=== PATIENT | female | born 1930 | race Caucasian/White ===

== ENCOUNTER 2016-11-03 14:13 | Inpatient (IN) | payer MEDICARE, BC ==
[2016-11-03] VITALS (30 sets, daily range): BP systolic 117–165; BP diastolic 43–123; BMI 24.4
[~2016-11-03] VITALS: Ht 157.5 cm; Wt 59.1 kg
[~2016-11-03 14:13] MED LIST: ACTOS45 MG PO; ADVIL200 MG PO; ASPIRIN EC81 M1 PO; CYCLOBENZAPRINE10 MG PO; GLIMEPIRIDE2 MG PO; HYZAAR 100-25 T1 TAB PO; METOPROLOL TART50 MG PO; MULTI-DAY VITAM1 TAB PO; NORVASC5 MG PO; NUCYNTA50 MG PO; PLAVIX75 MG PO; POTASSIUM99 M1 PO; PRAVACHOL40 MG PO; PROTONIX40 MG PO; XANAX0.25 MG PO; ZOFRAN4 MG PO
[2016-11-03 14:58] LABS: BASOPHILS 0.3 % (0.0-2.0); EOSINOPHILS 1.8 % (0-7); IMMATURE GRANULOCYTES 0.2 % (0-5); LYMPHOCYTES 13.6 % (15-50); MCH 24.2 pg (26.0-34.0); MCV 80.6 fL (80.0-100.0); MEAN PLATELET VOLUME 9.4 fL (7.4-10.4); MONOCYTES 6.5 % (2-11); NEUTROPHILS 77.6 % (40-80); PLATELET COUNT 217 10x3/uL (130-400); RBC 2.73 10x6/uL (4.00-5.40); RDW 15.2 % (11.5-14.5)
[2016-11-03 15:01] LABS: APTT 27.3 SECONDS (22.8-39.4); INR 1.1 (0.85-1.17); PROTIME 14.1 SECONDS (11.6-15.0)
[2016-11-03 15:05] LABS: ALBUMIN 3.3 g/dL (3.4-5.0); ANION GAP 13.8 mmol/L (8-16); BILIRUBIN - TOTAL 0.5 mg/dL (0.2-1.3); CALCIUM 8.8 mg/dL (8.5-10.1); CARBON DIOXIDE 25.8 mmol/L (21.0-32.0); CREATININE - SERUM 1.2 mg/dL (0.6-1.3); POTASSIUM - SERUM 3.6 mmol/L (3.5-5.1); PROTEIN - SERUM 7.2 g/dL (6.4-8.2)
[2016-11-03 15:06] LABS: HEMOGLOBIN 6.6 g/dL (12-16)
[2016-11-03 15:25] LABS: TROPONIN-I 0.131 ng/mL (0.000-0.060)
--- NOTE | 2016-11-03 16:39 | NUR ---
REC'D PT FROM ER. ATTACHED TO ICU EQUIPMENT UPON ARRIVAL. ALERT, ORIENTED X4. VSS. SEE ADMISSION ASSESSMENT.
--- NOTE | 2016-11-03 17:00 | NUR ---
BLOOD CONSENT SIGNED AND WITNESSED.
[2016-11-03] MEDS ORDERED: NORVASC5 MG PO (17:32)
--- NOTE | 2016-11-03 17:35 | NUR ---
FIRST ORDERED UNIT OF BLOOD CHECKED AND GIVEN PER PROTOCOL. VSS.
--- NOTE | 2016-11-03 18:41 | NUR ---
DR. AZEVEDO AT BEDSIDE SPEAKING WITH PT. DENIES ANY NEEDS AT THIS TIME. VITAL SIGNS STABLE. WILL CONTINUE TO MONITOR.
--- NOTE | 2016-11-03 19:00 | NUR ---
1900: Pt rec'd resting HOB 30 degrees with eyes open. Pupils CARMEN+ bilat. SMCx4=bilat disability specialist. Pt denies pain, tingling, numbness at this time. Pt requested something to eat. Provided sandwich tray, water, jello, and jose crackers at this time. Pt able to swallow with out difficulty. Breathing 022LNC with RR16x with SPO2 98% Lungs clear bilat with decreased bases bilaterally with auscultation. MMP and no cyanosis noted. S1S2 regular SR 60's on CM. Left arm PIV with NS 50 cc/hr. ABD soft NT BSx4 active. Carrasco to gravity with >30 cc/hr clear yellow UOP. SR up x2, call light in reach, and all montiors and alarms intact.
--- NOTE | 2016-11-03 19:07 | NUR ---
Patient Name: CINDY ROMERO Admission Status: ER Accout number: [id number] Admission Date: 11-03-2016 : 1930 Admission Diagnosis: CHF, Anemia Attending: EMETERIO Current LOS: 1 Anticipated DC Date: 11-06-2016 Planned Disposition: Home Primary Insurance: MEDICARE A & B Discharge Planning Comments: Cm met with patient and grandson to complete initial discharge planning assessment. Patient gave consent to complete assessment. Patient reports she lives at home and her grandson lives with her. She is independent in her care at home and is still able to drive. She denied use of community resources at this time. Patient plans to return home at discharge with her family assistance as needed. CM will continue to follow and assist with dc plan/needs. Turn Supervisor: Asia Segal RN, [facility] [phone] Is the patient Alert and Oriented? Yes 0 * How many steps to enter\exit or inside your home? 2 0 * PCP Dr. Layne 0 * Pharmacy [facility] 0 * Preadmission Environment Home with Family 0 * ADLs Independent 0 * Equipment Cane 0 * List name and contact numbers for known caregivers / representatives who currently or will assist patient after discharge: Madonna Qiu - daughter - [phone] 0 * Community resources currently utilized None 0 * Additional services required to return to the preadmission environment? No 0 * Can the patient safely return to the preadmission environment? Yes 0 * Has this patient been hospitalized within the prior 30 days at any hospital? No
[2016-11-03 19:23] LABS: % SATURATION 4 % (15-55); IRON 22 ug/dl (35-150); TOTAL IRON BIND CAPACITY 520 ug/dl (260-445); UNSAT IRON BIND CAPACITY 498 ug/dl (150-375)
--- NOTE | 2016-11-03 20:00 | NUR ---
1999: Pt repositioned for comfort per request at this time x2 RNs. 2nd unit of PRBC started with NS and blood tubing. No change in RESP/CV/NV status.
[2016-11-04] VITALS (17 sets, daily range): BP systolic 105–146; BP diastolic 48–90; Ht 157.5 cm; Wt 59.1 kg
--- NOTE | 2016-11-04 | NUR ---
0000: Pt resting on side with eyes closed at this time. Pt remains SR 60's on CM. Pt SPO2 decreased while asleep. Increased FIO2 to 4L to keep SPO2 >92%
--- NOTE | 2016-11-04 02:00 | NUR ---
0200: No change in pt RESP/CV/NV status. Pt remains SR 55-65 bpm on CM.
--- NOTE | 2016-11-04 06:00 | NUR ---
0600: Pt repositioned for comfort and linen changed. Pt SB while asleep, but increased SR 60's while awake. Pt with no c/o at this time. Pt remains on 024LNC RR12x with SPO2 99%. UA collected and sent to lab.
[2016-11-04 06:02] LABS: BASOPHILS 0.2 % (0.0-2.0); EOSINOPHILS 2.1 % (0-7); IMMATURE GRANULOCYTES 0.3 % (0-5); LYMPHOCYTES 27.2 % (15-50); MCH 25.5 pg (26.0-34.0); MCHC 31.7 g/dL (31.0-37.0); MCV 80.5 fL (80.0-100.0); MEAN PLATELET VOLUME 9.9 fL (7.4-10.4); MONOCYTES 12.2 % (2-11); PLATELET COUNT 175 10x3/uL (130-400); RDW 14.6 % (11.5-14.5); WBC 6.1 10x3/uL (4.8-10.8)
[2016-11-04 06:06] LABS: HEMATOCRIT 29.3 % (36.0-48.0); HEMOGLOBIN 9.3 g/dL (12-16); RBC 3.64 10x6/uL (4.00-5.40)
[2016-11-04 06:33] LABS: ANION GAP 11.3 mmol/L (8-16); CALCIUM 8.5 mg/dL (8.5-10.1); CARBON DIOXIDE 31.2 mmol/L (21.0-32.0); POTASSIUM - SERUM 3.5 mmol/L (3.5-5.1)
[2016-11-04 07:59] LABS: APPEARANCE CLEAR (CLEAR); BILIRUBIN NEGATIVE (NEGATIVE); COLOR YELLOW (YELLOW); GLUCOSE NEGATIVE (NEGATIVE); KETONE NEGATIVE (NEGATIVE); LEUKOCYTE ESTERASE 1+ (NEGATIVE); NITRITE NEGATIVE (NEGATIVE); PROTEIN 2+ mg/dL (NEGATIVE); SPECIFIC GRAVITY 1.015 (1.005-1.020); UROBILINOGEN NORMAL (NORMAL)
[2016-11-04 08:00] LABS: BACTERIA NONE SEEN /hpf (NONE SEEN); EPITHELIAL CELLS 0-5 /hpf (0-5); MUCUS <1+ /lpf (NONE SEEN); WHITE CELLS - URINE 0-5 /hpf (0-5)
--- NOTE | 2016-11-04 11:10 | HP ---
PATIENT: CINDY ROMERO MEDICAL RECORD: [id number] ACCOUNT: [id number] LOCATION:[facility] D.2307 : 29 ADMISSION DATE: 11/03/16 HISTORY AND PHYSICAL EXAMINATION DATE OF ADMISSION: 11/03/2016 REASON FOR ADMISSION: Fatigue, weakness, symptomatic anemia. HISTORY OF PRESENT ILLNESS: This is an 86-year-old white female who has been having some nosebleeds off and on for months. I sent her to Dr. Garcia and he had seen her a couple of times, recently did some cauterization of some bleeding vessels, apparently ruptured again and he did not want to cauterize again. She really has not had too much nose bleeding that she reports, but did have a lot just a few days ago. Last week on 10/28/2016, she fell in her house in her kitchen and hitting the left side of her head. She denies any loss of consciousness, but states she was a little woozy after that. She also twisted her right foot and has had a lot of pain there. She has been up and down since then, but states this morning and yesterday when she got up from bed, she would get real dizzy and she had to hold on something for worries of passing out. She stood and wanted to go the doctor or the ER, but after she realized that she could not get up, she finally agreed with her family to come in to be looked at. In the ER, her hemoglobin was 6.6, hematocrit 22, MCV was 80.6 and platelets were normal. Her BUN and creatinine were normal. Her sugar was elevated as she does have diabetes. Her troponin was elevated as is proBNP. She does have a history of diabetes, coronary artery disease. She is admitted for further evaluation and treatment. PAST MEDICAL AND SURGICAL HISTORY: She has hyperlipidemia, hypertension, well controlled diabetes coronary artery disease and aortic valve disease. PAST SURGICAL HISTORY: She has had coronary artery bypass grafting. She has had stents placed for coronary arteries. She had abdominal hernia repair and she had TAVR by Dr. Dorsey in [place] in June 2013 and has done well with that. HOME MEDICATIONS: Multivitamin once a day, ibuprofen 200 mg p.r.n. pain, aspirin 81 mg once a day, amlodipine 5 mg once a day, Amaryl 2 mg once a day, Plavix 75 mg once a day, Protonix 40 mg once a day, metoprolol 50 mg twice a day, losartan/HCTZ 100/25 once a day, Xanax 0.25 mg at bedtime, pravastatin 40 mg at bedtime, Actos 45 mg once a day, Zofran 4 mg q.6 hours p.r.n. nausea. ALLERGIES: TO CODEINE AND SULFA. HABITS: She never smoked. No alcohol or drugs. SOCIAL HISTORY: She is . She owns a [employer] business. FAMILY HISTORY: Father at 75 of alcoholism and he had some sort of GI cancer. Mother at age 24 of an acute perforated appendix. REVIEW OF SYSTEMS: GENERAL: She has occasional fatigue. No weight loss. HEENT: No particular sinus or allergy problems. CARDIOVASCULAR: She has history of coronary artery disease and has had aortic HISTORY AND PHYSICAL [id number] CINDY ROMERO L valve replaced and has no chest pain or palpitations. GASTROINTESTINAL: Denies nausea, vomiting, no bright red blood per stool or melena. SKIN: No rash. NEUROLOGIC: No seizures or migraine headaches. ENDOCRINE: She has diabetes, but A1c below 7.0. GENITOURINARY: No significant problems there. PSYCHIATRIC: She has some anxiety dealing with her grandson who has been in trouble with drugs. PHYSICAL EXAMINATION: VITAL SIGNS: She is awake and alert, pale appearing, temperature 97.7, heart rate 61, blood pressure 122/49, O2 sat 98%. She does not appear in acute distress. She is awake and alert. HEENT: I do not appreciate significant swelling on the left side of her head where she fell and hit her head last week. No significant tenderness there. NECK: Supple. No JVD or bruit. HEART: Regular rate and rhythm without murmur. LUNGS: Fairly clear. ABDOMEN: Soft, flat, nontender. EXTREMITIES: SCDs are in place. She does have 1-2+ lower extremity edema. There is some tenderness to palpation in the right foot, especially laterally. NEUROLOGIC: Grossly intact. LABORATORY DATA: CBC with a white count of 6000, hemoglobin of 6.6, hematocrit 22, MCV 80.6, platelets number 217,000. INR 1.1. Basic metabolic panel is all okay except glucose is 259. LFTs were all okay. Troponin I elevated at 0.131. ProBNP elevated at 1209. Chest x-ray is pending as is a urinalysis. ASSESSMENT: 1. Acute blood loss anemia, most likely from episodes of epistaxis. 2. Congestive heart failure. 3. Elevated troponin. 4. History of controlled diabetes. 5. Hypertension. PLAN: She is getting blood and IV fluids right now. Cardiology has been consulted for elevated troponin, which may be due to demand ischemia. We will Hemoccult stools, get anemia workup, followup chest x-ray report. We will x-ray her right foot, check a urinalysis. Other tests and procedures as warranted. TRANSINT:[id number] Voice Confirmation ID: [id number] DOCUMENT ID: [id number] GIANNA AZEVEDO MD at 1110 CC: [id number] DICTATION DATE: 11/03/161917 MEDICAL INTERPRETER: 11/04/16 [address] [facility] [address] [place] [id number]
--- NOTE | 2016-11-04 11:31 | NUR ---
VERIFIED KNOWLEDGE OF CONSULT WITH DR. JACKSON.
--- NOTE | 2016-11-04 17:47 | NUR ---
REPORT CALLED TO MED/SURG NURSE.
--- NOTE | 2016-11-04 18:20 | NUR ---
RECEIVED PT FROM ICU VIA BED. NO OTHER NEEDS AT THIS TIME. SHE IS ALERT NO SS OF DISTRESS AT THIS TIME. WILL CONTINUE PLAN OF CARE.
--- NOTE | 2016-11-04 19:29 | NUR ---
PT IS RESTING IN BED WITH EYES OPEN. ALERT TO SELF AND PLACE. CONFUSED TO TIME, BUT REORIENTED EASILY. IV INFUSING TO RFA WITHOUT DIFFICULTY. NO REDNESS OR EDEMA NOTED AT THE INSERTION SITE. O2 IS ON @ 4LPM PER NC. NO SOB NOTED. TOWNSEND CATH IS PATENT AND DRAINING TO A GRAVITY BAG. SR'S ARE UP X 3 IN BED. CALL LIGHT AND BEDSIDE TABLE ARE WITHIN EASY REACH.
--- NOTE | 2016-11-04 22:15 | NUR ---
PT IS RESTING QUIETLY IN BED WITH EYES CLOSED. RESPS ARE EVEN AND UNLABORED. NO ACUTE DISTRESS NOTED.
--- NOTE | 2016-11-05 00:09 | NUR ---
PT IS RESTING IN BED WITH EYES CLOSED.
[2016-11-05 00:37] VITALS: BP 130/46
--- NOTE | 2016-11-05 03:38 | NUR ---
PT IS RESTING IN BED WITH EYES OPEN. NO NEEDS VOICED.
[2016-11-05 04:23] VITALS: BP 153/55
[2016-11-05 07:20] LABS: BASOPHILS 0.3 % (0.0-2.0); EOSINOPHILS 3.4 % (0-7); HEMATOCRIT 29.9 % (36.0-48.0); HEMOGLOBIN 9.4 g/dL (12-16); IMMATURE GRANULOCYTES 0.3 % (0-5); LYMPHOCYTES 20.3 % (15-50); MCH 25.8 pg (26.0-34.0); MCHC 31.4 g/dL (31.0-37.0); MCV 82.1 fL (80.0-100.0); MONOCYTES 12.3 % (2-11); NEUTROPHILS 63.4 % (40-80); PLATELET COUNT 175 10x3/uL (130-400); RBC 3.64 10x6/uL (4.00-5.40); WBC 6.8 10x3/uL (4.8-10.8)
[2016-11-05 07:30] LABS: ANION GAP 8.3 mmol/L (8-16); CALCIUM 8.8 mg/dL (8.5-10.1); CARBON DIOXIDE 31.8 mmol/L (21.0-32.0); CREATININE - SERUM 0.8 mg/dL (0.6-1.3); POTASSIUM - SERUM 3.1 mmol/L (3.5-5.1)
[2016-11-05 09:00] VITALS: BP 160/50
[2016-11-05 16:00] VITALS: BP 144/52
--- NOTE | 2016-11-05 19:56 | NUR ---
RECEIVED IN BEDROOM. LAYING IN BED WITH EYES CLOSED. RESPONDS TO VOICE. IV INFUSING. DENIES PAIN AT THIS TIME. CALL LIGHT IN REACH
[2016-11-05 20:00] VITALS: BP 132/79
--- NOTE | 2016-11-06 01:43 | NUR ---
RESTING IN BED WITH EYES CLOSED. NO SIGNS OF DISTRESS. CALL LIGHT IN REACH
[2016-11-06 04:00] VITALS: BP 134/50
[2016-11-06 06:19] LABS: BASOPHILS 0.2 % (0.0-2.0); EOSINOPHILS 2.8 % (0-7); HEMATOCRIT 29.2 % (36.0-48.0); HEMOGLOBIN 9.2 g/dL (12-16); IMMATURE GRANULOCYTES 0.2 % (0-5); LYMPHOCYTES 20.2 % (15-50); MCH 26.1 pg (26.0-34.0); MCHC 31.5 g/dL (31.0-37.0); MEAN PLATELET VOLUME 9.8 fL (7.4-10.4); NEUTROPHILS 59.6 % (40-80); PLATELET COUNT 168 10x3/uL (130-400); RBC 3.52 10x6/uL (4.00-5.40); RDW 15.3 % (11.5-14.5); WBC 6.4 10x3/uL (4.8-10.8)
[2016-11-06 06:35] LABS: CALCIUM 8.6 mg/dL (8.5-10.1); CARBON DIOXIDE 31.4 mmol/L (21.0-32.0); CREATININE - SERUM 0.8 mg/dL (0.6-1.3); POTASSIUM - SERUM 3.4 mmol/L (3.5-5.1)
[2016-11-06 08:00] VITALS: BP 136/72
[2016-11-06 11:12] LABS: FOLATE (FOLIC ACID) - SERUM 10.2 ng/mL (>3.0)
[2016-11-06 12:00] VITALS: BP 126/42
[2016-11-06 16:00] VITALS: BP 151/63
--- NOTE | 2016-11-06 19:45 | NUR ---
PT RECEIVED IN BED WITH EYES OPEN WATCHING TV. NO COMPLAINTS OF PAIN. NO OTHER CONCERNS NOTED. IV TO RIGHT FOREARM PATENT AND RUNNING NS 0.9 AT 50ML/HR. NO REDNESS OR SWELLING NOTED AT THIS TIME. DRESSING INTACT. NO SIGN/SYMPTOMS OF DISTRESS NOTED. CALL LIGHT IN REACH.
[2016-11-06 21:40] VITALS: BP 149/80
--- NOTE | 2016-11-06 22:37 | NUR ---
PT IN BED WITH EYES OPEN WATCHING TV. RECEIVED SCHEDULED MEDICATIONS PER MAR WITHOUT DIFFICULTY. REQUEST PRN XANAX FOR SLEEP AND RECEIVED PER MAR. NO OTHER NEEDS AT THIS TIME. CALL LIGHT IN REACH.
[2016-11-07 02:00] VITALS: BP 139/46
[2016-11-07 06:02] LABS: BASOPHILS 0.2 % (0.0-2.0); HEMATOCRIT 29.9 % (36.0-48.0); HEMOGLOBIN 9.3 g/dL (12-16); IMMATURE GRANULOCYTES 0.2 % (0-5); MCH 26.1 pg (26.0-34.0); MCHC 31.1 g/dL (31.0-37.0); MCV 83.8 fL (80.0-100.0); MEAN PLATELET VOLUME 9.8 fL (7.4-10.4); MONOCYTES 15.5 % (2-11); NEUTROPHILS 62.1 % (40-80); PLATELET COUNT 166 10x3/uL (130-400); RBC 3.57 10x6/uL (4.00-5.40); RDW 15.4 % (11.5-14.5); WBC 5.6 10x3/uL (4.8-10.8)
[2016-11-07 06:09] LABS: ANION GAP 9.3 mmol/L (8-16); CALCIUM 8.6 mg/dL (8.5-10.1); CREATININE - SERUM 0.9 mg/dL (0.6-1.3); POTASSIUM - SERUM 3.3 mmol/L (3.5-5.1)
[2016-11-07 08:19] VITALS: BP 141/54
--- NOTE | 2016-11-07 08:31 | NUR ---
AM ROUNDING- PT LAYING IN BED ON BACK WITH EYES OPEN RESTING. ON MONITOR SHOWING SR, HR 60. ON EP, WILL CHECK AM LABS AND TX PER PROTOCOL. ON 02 AT 4L VIA NC. IV SEEN TO LEFT AC THAT IS CURRENTLY SALINE LOCKED. SECOND IV SEEN TO RIGHT FOREARM WITH NS RUNNING AT 50CC/HR. PER REPORT FROM LEATHER PRODUCTION WORKER NURSE SABINA, PT IS A RESERVE RIGHT ARM FOR A PAST MASECTOMY AND PT HAD IV IN RIGHT FOREARM BEFORE SHE GOT TO MED 2 FROM ER AND THAT IT WAS FINE TO GO AHEAD AND KEEP PER JOSELIN LINDSEY AND IF IT CAME OUT TO NOT RESITE IN RIGHT ARM. TOWNSEND CATHETER SEEN WITH YELLOW URINE. SCDS ARE CURRENTLY OFF. PER REPORT PT IS UP WITH ASSIST. WILL CONTINUE TO MONITOR AND CONTINUE WITH PLAN OF CARE.
[2016-11-07 12:05] VITALS: BP 130/50
--- NOTE | 2016-11-07 14:14 | NUR ---
Nutrition follow-up: Diet: Low sodium PO intake ~50% of meals labs reviewed Wt: 147# +BM PO intake fair at this time. RDN will order Ensure with meals RDN following.
--- NOTE | 2016-11-07 14:22 | NUR ---
JOSELIN RAMOS REMOVED PTS TOWNSEND CATHETER ORDERED AND PULLED 10CC OUT OF BALLOON SYRINGE. TOLERATED WELL. WILL CONTINUE TO MONITOR.
--- NOTE | 2016-11-07 15:00 | CN ---
PATIENT NAME:CINDY ROMERO MEDICAL RECORD: [id number] : 28 LOCATION:[facility] D.2138 ADMIT DATE: 11/03/16 ACCOUNT: [id number] CONSULTING PHYSICIAN: YVETTE DAVIDSON MD REFERRING PHYSICIAN: GIANNA AZEVEDO MD DATE OF CONSULTATION: 11/05/2016 HISTORY OF PRESENT ILLNESS: An 86-year-old lady with cardiovascular history. She has a history of TAVR in [place], done well since that time. She has a history of bypass grafting, has hypertension, has been having intermittent nosebleed, had a syncopal episode, was found to have a hemoglobin of 6.6, also was noted to have elevated troponin and BNP, feels much better post-transfusion, some sore from syncopal episode and fall. She reports some dyspnea, although this is markedly improved post-transfusion. We are asked to see her concerning her cardiovascular status. PAST MEDICAL HISTORY: 1. History of hypertension. 2. Aortic valve disease status post TAVR. 3. Diabetes mellitus. 4. Osteoarthritis. 5. Dyslipidemia. ALLERGIES: CODEINE AND SULFA. SOCIAL HISTORY: Lives here in [place]. She is a nonsmoker, , is able to take care of her ADLs. MEDICATIONS: Typically include Norvasc 5 mg p.o. q. day, Amaryl 2 mg p.o. q. day, Plavix 75 q. day, aspirin 81 q. day, Protonix 40 q. day, metoprolol 50 b.i.d., losartan 100/25 daily, Xanax p.r.n., and pravastatin 40 q.h.s. REVIEW OF SYSTEMS: The patient reports easy bruising but reports no swollen glands. The patient reports no fever, no night sweats, no significant weight gain, no significant weight loss. No significant exercise tolerance. The patient reports no dry eyes, no irritation, no vision change. Patient reports no difficulty hearing and no ear pain. Patient reports no frequent nose bleeds or nose and sinus problems. Patient reports on arm pain on exertion. No shortness of breath while lying down. No history of heart murmur. Patient reports no cough, no wheezing or coughing up blood. Patient reports no abdominal pain, no vomiting. Normal appetite. No diarrhea and not vomiting blood. No nausea and no constipation. Patient reports no incontinence. No difficulty urinating. No hematuria. No increased frequency. Patient reports no muscle aches. No weakness, no arthralgias, no back pain. No swelling of the extremities. Patient reports no abnormal mole, no jaundice, no rashes. Reports no loss of consciousness. No weakness and no numbness. No seizures, dizziness, or headaches. The patient reports no depression, no sleep disturbance, feeling safe in a relationship and no alcohol abuse. Patient reports on fatigue. Reports no runny nose or sinus pressure. No itching, no hives, and no frequent sneezing. PHYSICAL EXAMINATION: GENERAL: Pleasant female, in no acute distress, appears stated age. VITAL SIGNS: Blood pressure 160/50. Pulse 65 and regular. HEENT: Normocephalic and atraumatic. CONSULT REPORT [id number] CINDY ROMERO NECK: No JVD or bruit. HEART: Regular, II/ systolic ejection murmur. LUNGS: Good air excursion. ABDOMEN: Soft and nontender. EXTREMITIES: Pulse 2+ with no edema. NEUROLOGIC: Grossly intact. IMPRESSION: Suspect elevated troponin and BNP, more of high output issue with hemoglobin of 6.6. Symptoms improved, markedly posttransfusion. Agree with current management. TRANSINT:[id number] Voice Confirmation ID: [id number] DOCUMENT ID: [id number] YVETTE DAVIDSON MD at 1500 CC: [id number] DICTATION DATE: 11/05/16 1117 TABLE TENDER: 11/05/16 1218 ADM IN [place] [id number] [place] [address]
[2016-11-07 16:04] VITALS: BP 128/50
--- NOTE | 2016-11-07 18:35 | NUR ---
PT LAYING IN BED ON RIGHT SIDE WITH EYES OPEN RESTING. PT STATED HER STOMACH DOES NOT FEEL WELL CURRENTLY THAT IS WHY SHE HAS NOT EATEN DINNER. NO NEED AT CURRENT TIME. WILL CONTINUE TO MONITOR.
[2016-11-07 20:00] VITALS: BP 142/53
[2016-11-08] VITALS: BP 148/57
[2016-11-08 04:00] VITALS: BP 122/50
--- NOTE | 2016-11-08 04:55 | NUR ---
NURSE ROUNDS 21:00 - PT AWAKE, ALERT, ORIENTED, DENIED ANY ACUTE NEEDS. CONTINUE TO MONITOR CLOSELY. I DID ASSIST PT TO BATHROOM. CONTINUE TO MONITOR CLOSELY. BED LOW, CALL LIGHT IN REACH, SIDE RAILS X 2, HOB 30 DEGREES.
[2016-11-08 05:35] LABS: BASOPHILS 0.2 % (0.0-2.0); EOSINOPHILS 1.9 % (0-7); HEMATOCRIT 30.3 % (36.0-48.0); HEMOGLOBIN 9.3 g/dL (12-16); IMMATURE GRANULOCYTES 0.2 % (0-5); LYMPHOCYTES 21.2 % (15-50); MCH 25.7 pg (26.0-34.0); MCHC 30.7 g/dL (31.0-37.0); MCV 83.7 fL (80.0-100.0); MEAN PLATELET VOLUME 10.4 fL (7.4-10.4); MONOCYTES 17.1 % (2-11); NEUTROPHILS 59.4 % (40-80); PLATELET COUNT 170 10x3/uL (130-400); RBC 3.62 10x6/uL (4.00-5.40); RDW 15.9 % (11.5-14.5); WBC 5.9 10x3/uL (4.8-10.8)
[2016-11-08 05:53] LABS: ANION GAP 10.8 mmol/L (8-16); CALCIUM 8.5 mg/dL (8.5-10.1); CARBON DIOXIDE 30.9 mmol/L (21.0-32.0); CREATININE - SERUM 0.9 mg/dL (0.6-1.3); POTASSIUM - SERUM 3.7 mmol/L (3.5-5.1)
[2016-11-08 08:00] VITALS: BP 130/53
--- NOTE | 2016-11-08 08:27 | NUR ---
AM ROUNDING- PT LAYING IN BED ON BACK WITH EYES CLOSED RESTING. ON MONITOR SHOWING SB, HR 47. ON EP, WILL CHECK AM LABS AND TX PER PROTOCOL. RESERVE RIGHT ARM FROM HX OF MASECTOMY. IV SEEN TO RIGHT FOREARM THAT IS CURRENTLY SALINE LOCKED. IV SEEN TO LEFT AC WITH NS RUNNING AT 50CC/HR. ON 02 AT 4L VIA NC. SCDS ARE ON. NO NEED AT CURRENT TIME. WILL CONTINUE TO MONITOR.
[2016-11-08] MEDS ORDERED: FERROUS SULFAT325 MG PO (08:31)
--- NOTE | 2016-11-08 09:32 | NUR ---
Patient Name: CINDY ROMERO Encounter No: [id number] : 1930 Primary Insurance: MEDICARE A & B Anticipated DC Date: 11-08-2016 Planned Disposition: Home DCP follow-up note: CM MET WITH PT IN ROOM TO DISCUSS DISCHARGE NEEDS AND PLANNING. CM DISCUSSED AVAILABILITY OF HOME HEALTH, REHAB SERVICES AND MEDICAL EQUIPMENT. PT DENIES DISCHARGE NEEDS. DAUGHTER TO TRANSPORT HOME AT DISCHARGE. IMPORTANT MESSAGE FROM MEDICARE PROVIDED AND EXPLAINED. CM TO FOLLOW AND ASSIST NEEDED. Jonathan Wilkinson, CASE MANAGEMENT
[2016-11-08 12:00] VITALS: BP 138/44
--- NOTE | 2016-11-08 16:14 | NUR ---
D/C INSTRUCTIONS EXPLAINED TO PT AND SIGNED BY PT, PLACED IN CHART. BOTH IVS (ONE TO RIGHT FOREARM AND ONE TO LEFT AC) REMOVED WITH CATH TIP INTACT, TOLERATED WELL. HEART MONITOR RETURNED TO [place] IN TELEMETRY. PT WAS WEARING 02, CHECK PTS O2 SAT WITH 02 WHICH WAS 98%. TOOK O2 OFF AND CHECK PT 15 MINUTES LATER, PTS 02 SAT IS 96%. DAUGHTER STATED THEY WOULD CHECK WITH PCP IF HAVING ANY SOB OR DIFFICULTY BREATHING. PT STATED SHE NORMALLY DOES NOT WEAR O2 AT HOME. WILL AWAIT PT TO GET BELONGINGS AND SEND WHEELCHAIR. 1615- PT D/C HOME WITH DAUGHTER VIA WHEELCHAIR.
== END 2016-11-08 16:29 | disposition home or self-care (01) | DRG 812 ==
LOC: D.ER 14:13 → D.M2 15:52 → D.ICU 15:52 → D.M2 11-04 17:57
PROVIDERS: Emergency Medicine; ADMIT Family Medicine
PROC: 0T9B70Z Drainage of Bladder with Drainage Device, Via Natural or Artificial Opening (ICD-10-PCS; principal; 2016-11-03)
DX: D50.9 Iron deficiency anemia, unspecified (principal); D62 Acute posthemorrhagic anemia; R79.89 Other specified abnormal findings of blood chemistry; I11.0 Hypertensive heart disease with heart failure; I50.9 Heart failure, unspecified; E11.9 Type 2 diabetes mellitus without complications; I25.10 Atherosclerotic heart disease of native coronary artery without angina pectoris; E78.5 Hyperlipidemia, unspecified; S99.921A Unspecified injury of right foot, initial encounter; X58.XXXA Exposure to other specified factors, initial encounter; Z95.1 Presence of aortocoronary bypass graft; Z95.5 Presence of coronary angioplasty implant and graft

== ENCOUNTER → 2018-07-04 10:31 | Outpatient (CLI) | payer MEDICARE, BC ==
[2016-11-04 09:44] VITALS: BMI 25.6
[~2018-07-04 10:31] MED LIST changes: +FERROUS SULFAT325 MG PO
== END | disposition home or self-care (01) ==
LOC: D.US 10:30
DX: I63.9 Cerebral infarction, unspecified (principal); R47.01 Aphasia

== ENCOUNTER 2018-08-18 15:10 | Inpatient (IN) | payer MEDICARE, BC ==
[~2018-08-18] VITALS: Ht 157.5 cm; Wt 59.5 kg
--- NOTE | ~2018-08-18 | HEMODYNAMI ---
PATIENT:CINDY ROMERO MEDICAL RECORD: [id number] : 28 [facility] [id number] ADMISSION DATE: 08/18/18 Generatedon:08/22/201813:35 Patient name: CINDY ROMERO Patient #: [id number] SSN: : 1930 Date of study: 08/22/2018 Page: Of Hemodynamic Procedure Report Patient Data Patient Demographics Procedure consent was obtained First Name: CINDY Gender: Female Last Name: NICK : 1930 [facility] Initial: L Age: 88 year(s) Patient #: [id number] Race: Additional ID: [id number] Contact details [address]: [address] [place] [address] State: [place] City: [place] Zip code: [address] Past Medical History Allergies Allergen Reaction Date Comments Reported Other allergy 08/22/2018 SULFA ANTIBIOTICS, CODEINE, GATIFLOXIN Admission Admission Data Admission Date: 08/18/2018 Admission Time: 18:10 Room #: .2125 Height (in.): 61.81 BSA: 1.51 (m2) Height (cm.): 157 BMI: 21.34 (kg/m2) Weight (lbs.): 115.94 Weight (kg.): 52.59 Lab Results Lab Result Date: 08/19/2018 Lab Result Time: 0:00 Biochemistry Name Units Result Min Max BUN mg/dl 25 --(----)-* 7 18 Creatinine mg/dl 1.1 --(--*-)-- 0.6 1.3 Glucose mg/dl 85 --(-*--)-- 74 106 CBC Name Units Result Min Max Hemoglobin g/dl 9.7 *-(----)-- 13.5 17.5 Procedure Procedure Types Cath Procedure Diagnostic Procedure FFR/IVUS Intra-Coronary IVUS Initial PCI Procedure Coronary Stent Coronary Stent Initial Procedure Description Procedure Date Procedure Date: 08/22/2018 Procedure Start Time: 13:20 Procedure End Time: 13:28 Procedure Staff Name Function Drew Rodríguez MD Performing Physician Marta White RT Scrub [facility] RT Monitor Janice Story RN Nurse Procedure Data Cath Procedure Fluoroscopy Diagnostic fluoroscopy Total fluoroscopy Time: 1.8 time: 1.8 min min Diagnostic fluoroscopy Total fluoroscopy dose: 90 dose: 90 mGy mGy Contrast Material Contrast Material Type Amount (ml) Isovue 300 20 Entry Location Entry Primary Successful Side Size Upsize Upsize Entry Closure Succes sful Closure Location (Fr) 1 (Fr) 2 (Fr) Remarks Device Remarks Femoral Left 6 Fr Exoseal artery Short Estimated blood loss: 10 ml Procedure Complications No complications Procedure Medications Medication Administration Route Dosage 0.9% NaCl I.V. 100 ml/hr Oxygen etCO2 Nasal cannula 2 l/min Lidocaine 2% added to field 20 Heparin Flush Bag added to field 2 bags (1000units/500ml NS) Versed I.V. 2 mg Fentanyl I.V. 50 mcg Heparin Bolus I.V. 4000 units Hemodynamics Rest BSA: 1.51 (m2) HGB: 9.7 (g/dl) O2 Consumption: Estimated: 142.19 (ml/min) O2 Con sumption indexed: Estimated:94.17 (ml/min/m) Heart Rate: 86 (bpm) Snapshots Pre Cath Intra NCS Post Cath Vital Signs Time Heart Resp SPO2 etCO2 NIBP (mmHg) Rhythm Pain Sedation Rate (ipm) (%) (mmHg) Status Level (bpm) 13:04:14 86 29 99 29 138/78(109) NSR 0 (11) 10(A) , No pain 13:08:28 84 32 99 26.9 140/76(115) NSR 0 (11) 10(A) , No pain 13:12:40 67 19 100 26.4 100/55(77) NSR 0 (11) 10(A) , No pain 13:16:46 81 15 100 26 120/63(107) NSR 0 (11) 10(A) , No pain 13:20:58 78 23 100 30.8 116/65(99) NSR 0 (11) 9(A) , No pain 13:25:10 78 29 100 32 116/60(87) NSR 0 (11) 10(A) , No pain Medications Time Medication Route Dose Verified Delivered Reason Notes Effectiveness by by 13:06:08 0.9% NaCl I.V. 100 Drew Janice used for ml/hr Anne Story ship keeper 13:06:15 Oxygen etCO2 2 Drew Janice used for Nasal l/min Anne Story procedure cannula RN 13:06:20 Lidocaine 2% added 20ml Drew Drew for local to vial Anne Rodríguez MD anesthetic field 13:06:24 Heparin Flush added 2 Drew Drew used for Bag to bags Anne Rodríguez MD procedure (1000units/500ml field NS) 13:19:06 Versed I.V. 2 mg Drew Janice for sedation Anne Story RN 13:19:13 Fentanyl I.V. 50 Drew Janice for sedation mcg Anne Story RN 13:22:31 Heparin Bolus I.V. 4000 Drew Janice for verif ied units Anne Story anticoagulation with Dr. JOSELIN Rodríguez Procedure Log Time Note 12:36:32 Signed procedure consent form obtained from patient. 12:36:33 Time tracking: Regular hours (M-F 7:00 - 5:00) 12:36:37 Plan of Care:Hemodynamics will remain stable., Cardiac rhythm will remain stable., Comfort level will be maintained., Respiratory function will remain adequate., Patient/ family verbilizes understanding of procedure., Procedure tolerated without complication., Recovers from procedure without complications.. 12:36:39 Diagnostic Cath status Elective 12:39:57 Janice Story RN sent for patient. Start room use. 12:54:23 Patient received from Med II to CCL 1 Alert and oriented. Tansferred to table in Supine position. 12:54:25 Correct patient and procedure confirmed by team. 12:54:25 Warm blankets applied, and estephanie hugger turned on for patient comfort. 12:54:26 ECG and BP/O2 sat monitors applied to patient. 12:54:42 Patient Weight : 115.94 lbs 12:54:54 Patient Height : 61.81 inches 13:03:07 Vital chart was started 13:04:51 Baseline sample Acquired. 13:04:54 Rhythm: sinus rhythm 13:04:55 Full Disclosure recording started 13:04:57 Pre-procedure instructions explained to patient. 13:04:58 Pre-op teaching completed and patient verbalized understanding. 13:04:59 Family in patients room. 13:05:01 Patient NPO since Midnight. 13:05:27 Patient allergic to Other allergySULFA ANTIBIOTICS, CODEINE, GATIFLOXIN 13:05:38 Is patient on blood thinner?Yes 13:05:41 ACC The patient was administered the following blood thiners within the last 24 hours: ACCPlavix 13:05:42 Patient diabetic? Yes. 13:05:45 Previous problem with sedation/anesthesia? No ? 13:05:46 Snore? Yes 13:05:47 Sleep apnea? No 13:05:48 Deviated septum? No 13:05:49 Opens mouth fully? Yes 13:05:52 Sticks out tongue? Yes 13:05:53 Airway obstruction? No ? 13:05:58 Dentures? Yes IN TIGHT 13:06:02 Pre procedure: left dorsailis pedis pulse 1+ Palpable, but thready & weak; easily obliterated 13:06:08 Patient pain scale 0/10 ?. 13:06:08 0.9% NaCl 100 ml/hr I.V. was administered by Janice Story RN; used for procedure; 13:06:12 IV patent on arrival in right hand with 0.9% NaCl at [facility] 13:06:14 Lab results completed and on chart. 13:06:15 Oxygen 2 l/min etCO2 Nasal cannula was administered by Janice Story RN; used for procedure; 13:06:17 Left groin area was prepped with chlora-prep and draped in sterile fashion 13:06:18 Alarms reviewed by R. N. 13:06:19 Sharps counted by scrub and verified by R.N. 13:06:20 Lidocaine 2% 20ml vial added to field was administered by Drew Rodríguez MD; for local anesthetic; 13:06:24 Heparin Flush Bag (1000units/500ml NS) 2 bags added to field was administered by Drew Rodríguez MD; used for procedure; 13:07:13 Use device set CATH PACK 13:07:14 ACIST Syringe (12944) opened to sterile field. 13:07:15 Medline Cath Pack ([id number]) opened to sterile field. 13:07:15 ACIST Manifold (98015) opened to sterile field. 13:07:15 ACIST Hand Control (00000) opened to sterile field. 13:07:16 DIAGNOSTIC WIRE .035 260cm J wire (747134) opened to sterile field. 13:07:16 Bag Decanter () opened to sterile field. 13:07:32 CHOICE PT Extra Support 182cm wire ([id number]) opened to sterile field. 13:07:32 INFLATOR Merit BasixCompak (TP8538) opened to sterile field. 13:07:32 SHEATH 6FR [place] (KQU045) opened to sterile field. 13:18:18 Final Timeout: patient, procedure, and site verified with staff and physician. All members of the team are in agreement. 13:18:18 --------ALL STOP TIME OUT------ 13:18:20 Left groin site verified by team. 13:18:23 Physical assessment completed. ASA score P 3 - A patient with severe systemic disease as per Drew Rodríguez MD. 13:18:25 Sedation plan: IV Moderate Sedation Medication:Versed, Fentanyl 13:19:06 Versed 2 mg I.V. was administered by Janice Story RN; for sedation; 13:19:13 Fentanyl 50 mcg I.V. was administered by Janice Story RN; for sedation; 13:20:13 Procedure started. 13:20:35 Local anesthetic to left femerol artery with Lidocaine 2% by Drew Rodríguez MD.INITIAL ACCESS ONLY 13:20:54 Rossiter Mentasta Eagleye IVUS Catheter (20382H) opened to sterile field. 13:20:55 GUIDE 6FR HS I SH catheter ([id number]) opened to sterile field. 13:21:05 A 6 Fr Short sheath was inserted into the Left Femoral artery 13:21:34 6 Fr HS1 SH guide catheter was inserted over the wire 13:22:14 CHOICE ES 182 wire advanced. 13:22:15 Wire advanced across lesion. 13:22:31 Heparin Bolus 4000 units I.V. was administered by Janice Story RN; for anticoagulation; verified with Dr. Rodríguez 13:23:30 IVUS catheter advanced over wire. 13:23:33 IVUS pass to RCA lesion performed. 13:23:34 IVUS catheter removed over wire. 13:24:38 Place stent Inflation Number: 1 A NADEGE RX 3.0 x 22 stent ([id number]) was prepped and advanced across the Mid RCA. The stent was deployed at 15 NERI for 0:10 (min:sec). 13::53 Stent catheter was removed intact over wire. 13::54 Wire removed. 13::55 Guide catheter removed. 13:25:01 EXOSEAL 6Fr (EX600) opened to sterile field. 13:25:23 Sheath removed intact; hemostasis achieved with Exoseal to the Left Femoral artery. 13:25:26 Procedure ended.(Physican Out) 13::55 Fluoroscopy time 01.80 minutes. 13:27:00 Fluoroscopy dose: 90 mGy 13:27:00 Flurop Dose total: 90 13:27:04 Contrast amount:Isovue 300 20ml. 13:27:05 Sharps counted by scrub and verified by R.N. 13:27:09 Post-op/insertion site Left Femoral artery dressed using a 4 x 4 and Tegaderm. 13:27:17 Post-procedure physical assessment completed. ASA score P 3 - A patient with severe systemic disease as per Drew Rodríguez MD. 13:27:31 Post procedure rhythm: sinus rhythm 13:27:34 Estimated blood loss: 10 ml 13:27:35 Post procedure instruction explained to patient.Patient verbalizes understanding. 13:27:36 Patient needs reinforcement of post procedure teaching. 13:28:08 Procedure type changed to Cath procedure, Diagnostic procedure, FFR/IVUS, Intra-Coronary IVUS Initial, PCI procedure, Coronary Stent, Coronary Stent Initial 13:28:29 Procedure and supply charges have been captured, reviewed, submitted and are correct. 13:28:31 Procedure Complication : No complications 13:28:33 Vital chart was stopped 13:28:36 Report given to PCU. 13:28:38 Patient transfered to PCU with Bed. 13:28:39 Full Disclosure recording stopped 13:28:39 Procedure ended. 13:28:44 End room use (Document Last) 13:33:19 Femstop placed over the left femerol artery at 130 mmHg. Hemostasis achieved. Intervention Summary Intervention Notes Time ActionType Lesion and Equipment Used Action# Pressure Duration Attributes 13:24:38 Place stent Mid RCA NADEGE RX 3.0 x 1 15 00:10 22 stent ([id number]) Device Usage Item Name Manufacture Quantity Catalog Number Hospital Part Current M inimal Lot# / Charge Number Stock Stock Serial# Code ACIST Syringe Acist 1 56405 748078 028933 078426 2 0 (86028) Medical Systems Inc ACIST Hand Acist 1 45205 810379 655839 742315 5 Control Medical (35665) Systems Inc ACIST Manifold Acist 1 54732 228709 491864 519716 5 (67819) Medical Systems Inc Medline Cath Medline 1 [id number] 527454 88206 399210 5 Pack ([id number]) Bag Decanter Microtek 1 2001S 191963 64030 673028 5 () Medical Inc. DIAGNOSTIC St Ronni 1 697115 440457 726076 433133 3 0 WIRE .035 260cm J wire (276583) SHEATH 6FR Terumo 1 [id number] 276610 089773 257130 4 0 [place] (CWG680) INFLATOR Merit Merit 1 [id number] 907147 795636 543928 1 5 Spark CRM ([id number]) CHOICE PT [place] 1 [id number] 365920 781931 913697 5 Extra Support Scientific 182cm wire ([id number]) Rossiter Rossiter 1 [id number] 216858 109698 174307 8 Mentasta Eagleye IVUS Catheter (77149D) GUIDE 6FR HS I Medtronic 1 [id number] 933365 99403 877995 1 SH catheter ([id number]) NADEGE RX 3.0 x Medtronic 1 [id number] 865551 0794265 359646 5 [id number] 22 stent ([id number]) EXOSEAL 6Fr Cardinal 1 EX600 792724 743110 281031 1 0 (EX600) Health Signature Audit [place] Stage Time Signature Unsigned Intra-Procedure 08/22/2018 Brianne Castillo Counts 1:29:36 PM RT(R) RT(R) 08/22/2018 1:32:42 PM Intra-Procedure 08/22/2018 Brianne Grant 1:35:39 PM RT(R) Signatures Monitor : Brianne Grant Signature : RT Date : Time : [place] [id number] [place] [address]
--- NOTE | ~2018-08-18 | OP ---
PATIENT NAME: CINDY ROMERO MEDICAL RECORD: [id number] :28 LOCATION:D. D.2125 ADMISSION DATE:08/18/18 SURGEON: OBDULIA GARCIA MD DATE OF OPERATION: 08/22/2018 PROCEDURES: 1. PTCA and stent, RCA. 2. Selective coronary angiography. 3. Intravascular ultrasound. INDICATION: Angina and coronary artery disease. PROCEDURE IN DETAIL: After informed consent was obtained with detailed explanation of risks and benefits as well as alternative therapies, the patient elected to proceed with angiogram and angioplasty. The left femoral area was prepped and draped in normal sterile fashion. Left femoral artery was cannulated via modified Seldinger technique with placement of 6-Salvadorean sheath. All catheters were exchanged through this sheath. FINDINGS: The right coronary has greater than 80% stenosis in the mid vessel, confirmed by intravascular ultrasound. This was addressed with 3.0 x 22-mm [place] stent. Result was 0% residual stenosis. OVERALL IMPRESSION: Successful PTCA and stent of the right coronary, going from greater than 80% initial stenosis to 0% residual. TRANSINT:[id number] Voice Confirmation ID: [id number] DOCUMENT ID: [id number] OBDULIA GARCIA MD CC: [id number] DICTATION DATE: 08/22/18 1332 EDUCATIONAL TECHNOLOGY COORDINATOR: 08/22/18 1621 ADM IN [facility] [address] [id number]
--- NOTE | ~2018-08-18 | HEMODYNAMI ---
PATIENT:CINDY ROMERO MEDICAL RECORD: [id number] : 28 LOCATION:[address] ADMISSION DATE: 08/18/18 Generatedon:08/19/201816:10 Patient name: CINDY ROMERO Patient #: [id number] SSN: : 1930 Date of study: 08/19/2018 Page: Of Hemodynamic Procedure Report Patient Data Patient Demographics Procedure consent was obtained First Name: CINDY Gender: Female Last Name: NICK : 1930 [facility] Initial: L Age: 88 year(s) Patient #: [id number] Race: Additional ID: [id number] Contact details Address: [address] [address] State: [place] City: [place] Zip code: [address] Admission Admission Data Admission Date: 08/18/2018 Admission Time: 18:10 Room #: 1206 Lab Results Lab Result Date: 08/19/2018 Lab Result Time: 0:00 Biochemistry Name Units Result Min Max BUN mg/dl 25 --(----)-* 7 18 Creatinine mg/dl 1.1 --(--*-)-- 0.6 1.3 Glucose mg/dl 85 --(-*--)-- 74 106 CBC Name Units Result Min Max Hemoglobin g/dl 9.7 *-(----)-- 13.5 17.5 Procedure Procedure Types Cath Procedure Diagnostic Procedure C Coronaries w/Grafts PCI Procedure Coronary Stent Coronary Stent Initial AMI/SVG/STRAP MACHINE OPERATOR AUTOMATIC PTCA or Stent SVG-BMS/EDWARD Initial Procedure Description Procedure Date Procedure Date: 08/19/2018 Procedure Start Time: 15:33 Procedure End Time: 16:10 Procedure Staff Name Function Drew Rodríguez MD Performing Physician Theron Henderson RN Nurse Dottie Brandon RT Scrub Randy Walls RT Monitor Procedure Data Cath Procedure Fluoroscopy Diagnostic fluoroscopy Total fluoroscopy Time: 8.3 time: 8.3 min min Diagnostic fluoroscopy Total fluoroscopy dose: dose: 303.28 mGy 303.28 mGy Contrast Material Contrast Material Type Amount (ml) Isovue 300 185 Entry Location Entry Primary Successful Side Size Upsize Upsize Entry Closure Layton ccessful Closure Location (Fr) 1 (Fr) 2 (Fr) Remarks Device Remarks Femoral Right 5 Fr Manual vein Compression Femoral Right 5 Fr 6 Fr Exoseal artery Short Estimated blood loss: 10 ml Diagnostic catheters Device Type Used For End Catheter Placement MULTIPACK Pigtail 5 Fr Procedure catheter MULTIPACK JL 4.0 5Fr Procedure catheter MULTIPACK 3DRC 5Fr Procedure catheter DIAGNOSTIC AR MOD 5Fr Procedure Catheter (099080E) Procedure Medications Medication Administration Route Dosage Versed I.V. 1 mg Versed I.V. 1 mg Versed I.V. 1 mg Fentanyl I.V. 50 mcg Oxygen etCO2 Nasal cannula 2 l/min Lidocaine 2% added to field 20 Heparin Flush Bag added to field 2 bags (1000units/500ml NS) Heparin Bolus I.V. 4000 units Versed I.V. 1 mg Fentanyl I.V. 50 mcg Lopressor I.V. 5 mg Hemodynamics Rest HGB: 9.7 (g/dl) Heart Rate: 96 (bpm) Snapshots Pre Cath Intra NCS Post Cath Vital Signs Time Heart Resp SPO2 etCO2 NIBP (mmHg) Rhythm Pain Sedation Rate (ipm) (%) (mmHg) Status Level (bpm) 14:28:49 100 17 96 32 Measuring NSR 0 (11) 10(A) , No pain 14:30:11 100 15 97 33.5 233/92(134) NSR 0 (11) 10(A) , No pain 14:35:10 138 19 97 13.4 Measuring NSR 0 (11) 10(A) , No pain 14:41:21 136 43 94 11.9 204/182(189) NSR 0 (11) 10(A) , No pain 14:45:41 106 25 92 9.6 161/77(115) NSR 0 (11) 9(A) , No pain 14:50:01 96 25 92 33.5 140/71(99) NSR 0 (11) 9(A) , No pain 14:54:17 88 21 93 20.1 135/59(95) NSR 0 (11) 9(A) , No pain 14:58:31 87 24 93 13.4 134/60(100) NSR 0 (11) 9(A) , No pain 15:02:50 81 23 93 18.6 124/57(85) NSR 0 (11) 9(A) , No pain 15:07:05 77 21 93 5.2 125/57(88) NSR 0 (11) 9(A) , No pain 15:11:21 76 20 93 19.3 127/55(85) NSR 0 (11) 9(A) , No pain 15:15:39 77 21 93 29 119/52(86) NSR 0 (11) 9(A) , No pain 15:19:49 88 13 94 32.7 127/69(94) NSR 0 (11) 9(A) , No pain 15:24:05 81 24 98 1.4 131/59(94) NSR 0 (11) 9(A) , No pain 15:28:19 84 17 97 24.5 140/66(109) NSR 0 (11) 9(A) , No pain 15:32:36 81 23 94 29 142/69(107) NSR 0 (11) 9(A) , No pain 15:36:54 80 15 94 14.9 133/65(103) NSR 0 (11) 9(A) , No pain 15:41:05 85 19 95 35.8 144/73(109) NSR 0 (11) 9(A) , No pain 15:45:20 87 17 94 11.9 156/80(129) NSR 0 (11) 9(A) , No pain 15:49:40 96 23 92 29 157/82(124) NSR 0 (11) 9(A) , No pain 15:53:56 105 18 93 17.9 168/93(126) NSR 0 (11) 10(A) , No pain 15:58:16 89 19 94 21.6 175/87(141) NSR 0 (11) 10(A) , No pain 16:03:37 76 16 92 20.1 173/83(129) NSR 0 (11) 10(A) , No pain 16:07:37 76 14 92 20.1 No Cuff NSR 0 (11) 10(A) , No pain Medications Time Medication Route Dose Verified Delivered Reason Notes Effectiveness by by 14:35:55 Versed I.V. 1 mg Drew Buffie for anxiety Anne Henderson RN 14:53:18 Versed I.V. 1 mg Drew Buffie for anxiety Anne Henderson RN 15:12:44 Oxygen etCO2 2 Drew Buffie used for Nasal l/min Anne Henderson RN procedure cannula 15:18:51 Lidocaine 2% added 20ml Drew Drew for local to vial Anne Rodríguez MD anesthetic field 15:18:56 Heparin Flush added 2 Drew Drew used for Bag to bags Anne Rodríguez MD procedure (1000units/500ml field NS) 15:36:10 Versed I.V. 1 mg Drew Buffie for sedation Anne Henderson RN 15:36:16 Fentanyl I.V. 50 Drew Buffie for sedation mcg Anne Henderson RN 15:43:36 Heparin Bolus I.V. 4000 Drew Buffie for verif ied units Anne Henderson RN anticoagulation with dr rodríguez 15:47:10 Versed I.V. 1 mg Drew Buffie for sedation Anne Henderson RN 15:47:14 Fentanyl I.V. 50 Drew Buffie for sedation mcg Anne Henderson RN 15:56:52 Lopressor I.V. 5 mg Drew Kempie Per physician Anne Henderson RN Procedure Log Time Note 14:07:32 Informed consent obtained and on chart 14:07:52 Randy Walls RT(R) (CV) sent for patient. Start room use. 14:07:53 Time tracking: Regular hours (M-F 7:00 - 5:00) 14:07:58 Plan of Care:Hemodynamics will remain stable., Cardiac rhythm will remain stable., Comfort level will be maintained., Respiratory function will remain adequate., Patient/ family verbilizes understanding of procedure., Procedure tolerated without complication., Recovers from procedure without complications.. 14:22:06 Patient received from Med II to CCL 3 Alert and oriented. Tansferred to table in Supine position. 14:22:07 Warm blankets applied, and estephanie hugger turned on for patient comfort. 14:22:08 Correct patient and procedure confirmed by team. 14:22:08 ECG and BP/O2 sat monitors applied to patient. 14:27:00 Vital chart was started 14:27:05 Full Disclosure recording started 14:27:09 H&P Date Dictated: 08/19/2018 New H&P dictated by physician.. 14:27:11 Pre-procedure instructions explained to patient. 14:27:11 Pre-op teaching completed and patient verbalized understanding. 14:27:14 Pt moved to procedure table and noticed she was hot to touch. Temp taken temporal and was 101.2 Dr Rodríguez notifed. Cont with procedure due to elevated troponin. 14:27:15 Family in waiting room. 14:27:17 Patient NPO since Midnight. 14:28:58 Is the patient allergic to Iodine/contrast media? No. 14:28:59 Was the patient premedicated? No 14:29:00 Is patient on blood thinner?Yes 14:29:03 ACC The patient was administered the following blood thiners within the last 24 hours: ACCPlavix 14:29:05 Patient diabetic? Yes. 14:29:06 If diabetic: On Metformin? No 14:29:08 Previous problem with sedation/anesthesia? No ? 14:29:10 Snore? Yes 14:29:11 Sleep apnea? No 14:29:12 Deviated septum? No 14:29:13 Opens mouth fully? Yes 14:29:14 Sticks out tongue? Yes 14:29:16 Airway obstruction? No ? 14:29:20 Dentures? Yes in tight 14:29:24 Pre procedure: right dorsailis pedis pulse 1+ Palpable, but thready & weak; easily obliterated 14:29:26 Pre procedure: left dorsailis pedis pulse 1+ Palpable, but thready & weak; easily obliterated 14:29:28 Patient pain scale 0/10 ?. 14:29:36 IV patent on arrival in left forearm with 0.9% NaCl at KVO. 14:29:38 Lab results completed and on chart. 14:29:42 Right groin area was prepped with chlora-prep and draped in sterile fashion 14::43 Alarms reviewed by R. N. 14:29:43 Sharps counted by scrub and verified by R.N. 14:33:13 pt having jerking type movements on table, pt able to speak with these movements. Dr. Rodríguez to bedside and order given to give 1mg versed for anxiety. Will continue to monitor. 14:35:55 Versed 1 mg I.V. was administered by Theron Henderson RN; for anxiety; 14:46:56 Pt is relaxed on procedure table and only having movements when aroused. 14:49:00 Use device set Femoral Dx 14:49:02 ACIST Syringe (23820) opened to sterile field. 14:49:02 Bag Decanter (2002S) opened to sterile field. 14:49:04 Medline Cath Pack ([id number]) opened to sterile field. 14:49:05 DIAGNOSTIC WIRE .035 260cm J wire (525349) opened to sterile field. 14:49:10 ACIST Hand Control (89856) opened to sterile field. 14:49:11 ACIST Manifold (76801) opened to sterile field. 14:49:43 DIAGNOSTIC Multipack 5Fr catheter set (HG9462) opened to sterile field. 14:49:44 Tegaderm 4 x 4 (1626W) opened to sterile field. 14:49:47 SHEATH 5FR Rincon (ONG231) opened to sterile field. 14:49:57 Baseline sample Acquired. 14:50:10 Rhythm: sinus rhythm 14:53:18 Versed 1 mg I.V. was administered by Theron Henderson RN; for anxiety; 14:57:36 IN ROOM 2 15:04:29 Lab Result : BUN 25 mg/dl 15:04:29 Lab Result : Glucose 85 mg/dl 15:04:29 Lab Result : Creatinine 1.1 mg/dl 15:04:29 Lab Result : Hemoglobin 9.7 g/dl 15:07:34 FSBS 136 mg/dl 15:12:44 Oxygen 2 l/min etCO2 Nasal cannula was administered by Theron Henderson RN; used for procedure; 15:15:01 Dr. Layne to laboratory cureman and was informed of pt condition. 15:17:57 Physician arrived 15:17:58 --------ALL STOP TIME OUT------ 15:17:59 Final Timeout: patient, procedure, and site verified with staff and physician. All members of the team are in agreement. 15:18:01 Right groin site verified by team. 15:18:04 Physical assessment completed. ASA score P 2 - A patient with mild systemic disease as per Drew Rodríguez MD. 15:18:16 Sedation plan: IV Moderate Sedation Medication:Versed, Fentanyl 15:18:51 Lidocaine 2% 20ml vial added to field was administered by Drew Rodríguez MD; for local anesthetic; 15:18:56 Heparin Flush Bag (1000units/500ml NS) 2 bags added to field was administered by Drew Rodríguez MD; used for procedure; 15:22:57 IV infiltrated, iv with cath intact removed from left wrist. dr rodríguez to place iv to rt groin. 15:27:55 Diagnostic Cath Status : Elective 15:28:11 Procedure type changed to Cath procedure, Diagnostic procedure, LHC, Coronaries w/Grafts, PCI procedure, Coronary Stent, Coronary Stent Initial, AMI/SVG/STRAP MACHINE OPERATOR AUTOMATIC PTCA or Stent, SVG-BMS/EDWARD Initial 15:33:04 Procedure started. 15:33:09 Local anesthetic to right femoral artery with Lidocaine 2% by Drew Rodríguez MD.INITIAL ACCESS ONLY 15:33:17 Local anesthetic to right femoral vein with Lidocaine 2% by Drew Rodríguez MD.ADDITIONAL ACCESS 15:34:38 SHEATH 5FR Rincon (NJA438) opened to sterile field. 15:35:43 IV FLUID CONNECTED TO VEINOUS SHEATH 15:36:02 A 5 Fr sheath was inserted into the Right Femoral vein 15:36:10 Versed 1 mg I.V. was administered by Theron Henderson RN; for sedation; 15:36:16 Fentanyl 50 mcg I.V. was administered by Theron Henderson RN; for sedation; 15:36:18 A 5 Fr sheath was inserted into the Right Femoral artery 15:36:28 A MULTIPACK Pigtail 5 Fr catheter was advanced over the wire and used for Procedure. 15:37:19 UNABLE TO CROSS VALVE 15:37:22 Catheter removed. 15:37:31 A MULTIPACK JL 4.0 5Fr catheter was advanced over the wire and used for Procedure. 15:37:53 LCA angiography performed. 15:37:58 Catheter removed. 15:38:35 A MULTIPACK 3DRC 5Fr catheter was advanced over the wire and used for Procedure. 15:40:12 DENNEY VIEWED NOT CONNECTED 15:40:28 RCA angiography performed. 15:40:35 Catheter removed. 15:40:45 A DIAGNOSTIC AR MOD 5Fr Catheter ([id number]) was advanced over the wire and used for Procedure. 15:41:26 SVG to Circ occluded. 15:42:00 SVG to LAD occluded. 15:42:37 Catheter removed. 15:43:16 SHEATH 6FR Rincon (JPW537) opened to sterile field. 15:43:17 CHOICE PT Extra Support 182cm wire ([id number]) opened to sterile field. 15:43:18 INFLATOR Merit BasixCompak (NB7546) opened to sterile field. 15:43:19 GUIDE 6FR AR 2.0 SH catheter ([id number]) opened to sterile field. 15:43:27 Proceeding to intervention. 15:43:36 Heparin Bolus 4000 units I.V. was administered by Theron Henderson RN; for anticoagulation; verified with dr rodríguez 15:43:40 Sheath upsized to a 6 Fr Short. 15:43:51 6 Fr AR 2 SH guide catheter was inserted over the wire 15:45:15 CHOICE wire advanced. 15:45:17 Wire advanced across lesion. 15:46:38 Place stent Inflation Number: 1 A NADEGE RX 3.0 x 15 stent ([id number]) was prepped and advanced across the Aorta Left -> 1st Ob Cheryl. The stent was deployed at 15 NERI for 0:10 (min:sec). 15:47:10 Versed 1 mg I.V. was administered by Theron Henderson RN; for sedation; 15:47:14 Fentanyl 50 mcg I.V. was administered by Theron Henedrson RN; for sedation; 15:48:41 Place stent Inflation Number: 2 A NADEGE RX 3.0 x 18 stent ([id number]) was prepped and advanced across the Aorta Left -> 1st Ob Cheryl. The stent was deployed at 15 NERI for 0:10 (min:sec). 15:49:34 Stent catheter was removed intact over wire. 15:49:40 Wire redirected to LAD. 15:50:17 The NADEGE RX 2.0 x 15 stent ([id number]) was advanced then removed because of failure to cross lesion 15:51:21 Inflate balloon Inflation number: 1 A EUPHORA 2.0 x 15 Balloon ([id number]) was prepped and advanced across the Mid LAD, then inflated to 11 NERI for 0:10 (min:sec). 15:51:25 Balloon removed over the wire. 15:52:51 The NADEGE RX 2.0 x 15 stent ([id number]) was advanced then removed because of failure to cross lesion 15:54:29 Inflate balloon Inflation number: 2 A EUPHORA 2.0 x 30 Balloon ([id number]) was prepped and advanced across the Mid LAD, then inflated to 17 NERI for 0:10 (min:sec). 15:54:36 Balloon removed over the wire. 15:55:51 Place stent Inflation Number: 3 A NADEGE RX 2.0 x 15 stent ([id number]) was prepped and advanced across the Mid LAD. The stent was deployed at 13 NERI for 0:10 (min:sec). 15:56:44 Stent catheter was removed intact over wire. 15:56:48 Guide catheter removed. 15:56:48 Wire removed. 15:56:52 Lopressor 5 mg I.V. was administered by Theron Henderson RN; Per physician; 15:57:25 EXOSEAL 6Fr (EX600) opened to sterile field. 15:59:49 Sheath removed intact; hemostasis achieved with Exoseal to the Right Femoral artery. 15:59:53 Procedure ended.(Physican Out) 16:00:14 Fluoroscopy time 08.30 minutes. 16:00:22 Fluoroscopy dose: 303.28 mGy 16:00:22 Flurop Dose total: 303.28 16:00:27 Contrast amount:Isovue 300 185ml. 16:00:28 Sharps counted by scrub and verified by R.N. 16:05:37 IV started by Theron Henderson RN inright wrist with a 22 gauge IV catheter with 0.9% NaCl at KVO. 16:06:48 Sheath removed intact; hemostasis achieved with Manual Compression to the Right Femoral vein. 16:07:09 Insertion/operative site no bleeding no hematoma. 16:07:17 Post-op/insertion site Right Femoral artery dressed using a 4 x 4 and Tegaderm. 16:07:29 Post-op/insertion site Right Femoral vein dressed using a 4 x 4 and Tegaderm. 16:09:12 Post right femoral artery:stable 16:09:23 Post right femoral vein:stable 16:09:35 Post Procedure Pulses reassessed and unchanged 16:09:41 Post-procedure physical assessment completed. ASA score P 2 - A patient with mild systemic disease as per Drew Rodríguez MD. 16:09:53 Post procedure rhythm: sinus rhythm 16:09:57 Estimated blood loss: 10 ml 16:10:00 Post procedure instruction explained to patient.Patient verbalizes understanding. 16:10:00 Patient needs reinforcement of post procedure teaching. 16:10:01 Procedure and supply charges have been captured, reviewed, submitted and are correct. 16:10:03 Vital chart was stopped 16:10:05 See physician's report for complete and final results. 16:10:07 Report given to PCU. 16:10:12 Patient transfered to PCU with Bed. 16:10:15 Procedure ended. 16:10:15 Full Disclosure recording stopped 16:10:20 End room use (Document Last) Intervention Summary Intervention Notes Time ActionType Lesion and Equipment Used Action# Pressure Duration Attributes 15:46:38 Place stent Aorta Left NADEGE RX 3.0 x 1 15 00:10 -> 1st Ob 15 stent Cheryl ([id number]) 15:48:41 Place stent Aorta Left NADEGE RX 3.0 x 2 15 00:10 -> 1st Ob 18 stent Cheryl ([id number]) 15:50:17 Discard NADEGE RX 2.0 x Stent 15 stent ([id number]) 15:51:21 Inflate Mid LAD EUPHORA 2.0 x 1 11 00:10 balloon 15 Balloon ([id number]) 15:52:51 Discard NADEGE RX 2.0 x Stent 15 stent ([id number]) 15:54:29 Inflate Mid LAD EUPHORA 2.0 x 2 17 00:10 balloon 30 Balloon ([id number]) 15:55:51 Place stent Mid LAD NADEGE RX 2.0 x 3 13 00:10 15 stent ([id number]) Device Usage Item Name Manufacture Quantity Catalog Number Hospital Part Current M inimal Lot# / Charge Number Stock Stock Serial# Code ACIST Syringe Acist 1 40317 198703 743245 413403 2 0 (64464) Medical Systems Inc Bag Decanter Microtek 1 643155 95302 566975 5 () Medical Inc. Medline Cath Medline 1 [id number] 990997 87031 385406 5 Pack ([id number]) DIAGNOSTIC St Ronni 1 240225 318460 632981 286888 3 0 WIRE .035 260cm J wire (921953) ACIST Hand Acist 1 45129 372885 092074 406454 5 Control Medical (59199) Systems Inc ACIST Manifold Acist 1 23524 687701 555068 058075 5 (25801) Medical Systems Inc DIAGNOSTIC Cardinal 1 EM7205 794937 97344 025554 3 0 Multipack 5Fr Health catheter set (RU2929) Tegaderm 4 x 4 3M 1 1626W 762277 761382 208294 5 (1626W) SHEATH 5FR Terumo 2 UBS106 934473 372454 972087 5 Rincon (BNW098) MULTIPACK Cardinal 1 221145 5 Pigtail 5 Fr Health catheter MULTIPACK JL Cardinal 1 330181 5 4.0 5Fr Health catheter MULTIPACK 3DRC Cardinal 1 905813 5 5Fr catheter Health DIAGNOSTIC AR Cardinal 1 [id number] 046607 204177 462395 1 5 MOD 5Fr Health Catheter (933517D) SHEATH 6FR Terumo 1 EMG591 318676 002011 252034 4 0 Rincon (KNG931) CHOICE PT Luther 1 [id number] 640531 363305 688626 5 Extra Support Scientific 182cm wire ([id number]) INFLATOR Merit Merit 1 WS7159 636914 771146 203193 1 5 Itandi (NY5159) GUIDE 6FR AR Medtronic 1 [id number] 621166 55655 669758 1 2.0 SH catheter (LL6LC6MS) NADEGE RX 3.0 x Medtronic 1 [id number] 997583 5722976 073588 5 [id number] 15 stent ([id number]) NADEGE RX 3.0 x Medtronic 1 [id number] 748644 5194419 448275 5 [id number] 18 stent ([id number]) NADEGE RX 2.0 x Medtronic 1 [id number] 271989 4904517 242093 5 [id number] 15 stent ([id number]) EUPHORA 2.0 x Medtronic 1 [id number] 339689 095469 702199 5 [id number] 15 Balloon ([id number]) EUPHORA 2.0 x Medtronic 1 [id number] 418917 451723 318729 5 [id number] 30 Balloon ([id number]) EXOSEAL 6Fr Cardinal 1 EX600 499327 208796 704452 1 0 (EX600) Health Signature Audit [place] Stage Time Signature Unsigned Intra-Procedure 08/19/2018 Randy Walls 4:10:46 PM RT(R) (CV) Signatures Monitor : Randy Walls RT Signature : Date : Time : [id number] [place] [address]
--- NOTE | ~2018-08-18 | OP ---
PATIENT NAME: CINDY ROMERO MEDICAL RECORD: [id number] :28 LOCATION:D.M2 D.2125 ADMISSION DATE:08/18/18 SURGEON: OBDULIA GARCIA MD DATE OF OPERATION: 08/19/2018 PROCEDURES: 1. PTCA stent vein graft to left circumflex. 2. PTCA stent LAD through patent vein graft. 3. Left heart catheterization. 4. Left ventriculogram. 5. Vein graft angiography. 6. DENNEY angiography. INDICATION: Angina and coronary artery disease. PROCEDURE IN DETAIL: After informed consent was obtained and after a detailed description of risks, benefits as well as alternative therapies, the patient elected to proceed with angiogram and angioplasty. The right femoral area was prepped and draped in normal sterile fashion. Right femoral artery was cannulated via modified Seldinger technique with placement of 6-English sheath. All catheters exchanged through this sheath. 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 SELECTIVE CORONARY ANGIOGRAPHY: 1. Left main has a 90% stenosis. 2. Left anterior descending is totally occluded. 3. Left circumflex is totally occluded. 4. Right coronary has 80% stenosis in the mid vessel. 5. Vein graft to the right coronary artery is closed. 6. Vein graft to the LAD is open; however, after this, the LAD has 95% stenosis. 7. Vein graft to the circumflex is open; however, there is 85% stenosis times 2 throughout. PTCA STENT OF THE VEIN GRAFT TO THE CIRCUMFLEX: The stents used were 3.0 x 15 and 3.0 x 18 both Jakob stents. Result was 0% residual stenosis throughout. PTCA STENT OF THE LAD: Through the patent vein graft to the LAD was addressed with a 2.0 balloon and stented with a 2.0 x 15 Jakob stent. Result was 0% residual stenosis. OVERALL IMPRESSION: Successful percutaneous transluminal coronary angioplasty stent of the left anterior descending through the patent saphenous vein graft and the vein graft to the circumflex, both going from 85-95% initial stenosis to 0% residual. PLAN: PTCA stent of the [place] RCA in the future. TRANSINT:[id number] Voice Confirmation ID: [id number] DOCUMENT ID: [id number] OPERATIVE REPORT [id number] CINDY ROMERO OBDULIA GARCIA MD CC: [id number] DICTATION DATE: 08/19/18 161 BOTTOM PRESSER: 08/19/18 6445 ADM IN [facility] [address] [id number]
[2018-08-18] MEDS ORDERED: COZAAR25 MG PO (15:26)
[2018-08-18 16:01] LABS: BASOPHILS 0.1 % (0-2); EOSINOPHILS 0.2 % (0-7); HEMATOCRIT 35.8 % (36.0-48.0); HEMOGLOBIN 11.7 g/dL (12-16); IMMATURE GRANULOCYTES 0.2 % (0-5); LYMPHOCYTES 6.1 % (15-50); MCH 32.1 pg (26.0-34.0); MCHC 32.7 g/dL (31.0-37.0); MCV 98.4 fL (80.0-100.0); MONOCYTES 5.9 % (2-11); NEUTROPHILS 87.5 % (40-80); PLATELET COUNT 183 10x3/uL (130-400); RBC 3.64 10x6/uL (4.00-5.40); RDW 13.4 % (11.5-14.5); WBC 12.6 10x3/uL (4.8-10.8)
[2018-08-18 16:02] LABS: APPEARANCE CLEAR (CLEAR); BILIRUBIN NEGATIVE (NEGATIVE); COLOR YELLOW (YELLOW); GLUCOSE 50 mg/dL (NEGATIVE); KETONE NEGATIVE (NEGATIVE); NITRITE NEGATIVE (NEGATIVE); PROTEIN 2+ mg/dL (NEGATIVE); SPECIFIC GRAVITY 1.015 (1.005-1.020); UROBILINOGEN NORMAL (NORMAL)
[2018-08-18 16:04] LABS: BACTERIA FEW /hpf (NONE SEEN); RED CELLS - URINE 0-5 /hpf (0-5); WHITE CELLS - URINE 0-5 /hpf (0-5)
[2018-08-18 16:17] LABS: APTT 27.2 SECONDS (22.8-39.4); INR 1.05 (0.85-1.17); PROTIME 13.2 SECONDS (11.6-15.0)
[2018-08-18 16:18] LABS: D-DIMER-QUANTITATIVE 0.81 ug/mLFEU (0.20-0.54)
[2018-08-18 16:30] LABS: ALBUMIN 3.5 g/dL (3.4-5.0); ALKALINE PHOSPHATASE 65 U/L (46-116); ALT (SGPT) 26 U/L (10-68); BILIRUBIN - TOTAL 1.02 mg/dL (0.2-1.3); CALC OSMOLALITY 293 mosm/kg (275-300); CALCIUM 9.4 mg/dL (8.5-10.1); CARBON DIOXIDE 24.9 mmol/L (21.0-32.0); CHLORIDE - SERUM 103 mmol/L (98-107); CREATININE - SERUM 1.2 mg/dL (0.6-1.3); POTASSIUM - SERUM 3.8 mmol/L (3.5-5.1); PROTEIN - SERUM 7.4 g/dL (6.4-8.2); SODIUM 141 mmol/L (136-145); UREA NITROGEN 24 mg/dL (7-18); eGFR NON AFRICAN AMERICAN 45 mL/min (90-120)
[2018-08-18 16:39] LABS: GLUCOSE 254 mg/dL (74-106)
[2018-08-18 16:42] LABS: AMYLASE - SERUM 65 U/L (25-115); CKMB 3.4 U/L (0.0-3.6); CREATINE KINASE 102 UL (21-215); LIPASE 105 U/L (73-393); MAGNESIUM - SERUM 1.7 mg/dL (1.8-2.4)
[2018-08-18 18:00] VITALS: BP 126/83
[2018-08-18 19:08] VITALS: BP 128/79
[2018-08-18 20:00] VITALS: BP 131/63
[2018-08-18 21:29] VITALS: BP 131/63; BMI 21.0
[2018-08-19] VITALS: BP 102/36
[2018-08-19 04:00] VITALS: BP 130/41
[2018-08-19 07:07] LABS: BASOPHILS 0.1 % (0-2); EOSINOPHILS 0.1 % (0-7); HEMATOCRIT 29.4 % (36.0-48.0); HEMOGLOBIN 9.7 g/dL (12-16); IMMATURE GRANULOCYTES 0.3 % (0-5); LYMPHOCYTES 14.2 % (15-50); MCH 31.9 pg (26.0-34.0); MCV 96.7 fL (80.0-100.0); MEAN PLATELET VOLUME 10.2 fL (7.4-10.4); MONOCYTES 11.3 % (2-11); PLATELET COUNT 145 10x3/uL (130-400); RBC 3.04 10x6/uL (4.00-5.40); RDW 13.4 % (11.5-14.5); WBC 6.7 10x3/uL (4.8-10.8)
[2018-08-19 07:37] LABS: ANION GAP 14.9 mmol/L (8-16); CALCIUM 8.7 mg/dL (8.5-10.1); CREATININE - SERUM 1.1 mg/dL (0.6-1.3); POTASSIUM - SERUM 3.9 mmol/L (3.5-5.1)
[2018-08-19 07:39] LABS: TROPONIN-I 29.79 ng/mL (0.000-0.060)
--- NOTE | 2018-08-19 12:46 | MORECARE ---
CASE MANAGEMENT DISCHARGE SUMMARY PATIENT: CINDY ROMERO UNIT: [id number] ADM DATE: 08/18/18 AGE: 88 : [birth year] SEX: F ROOM/BED: D.1206 AUTHOR: CANDICE BARROS PHYSICIAN: REFERRING PHYSICIAN: GIANNA AZEVEDO MD DATE OF SERVICE: 08/19/18 Discharge Plan Patient Name: CINDY ROMERO Facility: [facility]:[place] : 1930 Planned Disposition: Home Anticipated Discharge Date: Discharge Date: Expected LOS: Initial Reviewer: [email or web address] Initial Review Date: 08/19/2018 Generated: 08/19/18 1:46 pm Patient Name: CINDY ROMERO Page 13763 at 1246 All edits/amendments must be made on the electronic document DICTATION DATE: 08/19/18 1245 WEIGHER OPERATOR: NINI 08/19/18 1245 RPT#: [id number] DC DATE: STATUS: ADM IN [facility] [address] [place] [address] END OF REPORT
--- NOTE | 2018-08-19 12:53 | MORECARE ---
CASE MANAGEMENT DISCHARGE SUMMARY PATIENT: CINDY ROMERO UNIT: [id number] ADM DATE: 08/18/18 AGE: 88 : [birth year] SEX: F ROOM/BED: D.1206 AUTHOR: CANDICE BARROS PHYSICIAN: REFERRING PHYSICIAN: GIANNA AZEVEDO MD DATE OF SERVICE: 08/19/18 Discharge Plan Patient Name: CINDY ROMERO [facility] [facility] 1930 Planned Disposition: Home Anticipated Discharge Date: Discharge Date: Expected LOS: Initial Reviewer: [email or web address] Initial Review Date: 08/19/2018 Generated: 08/19/18 1:53 pm DCPIA - Discharge Planning Initial Assessment Updated by [email or web address]: Mary Grace Rosa on 08/19/18 12:47 pm * Is the patient Alert and Oriented? Yes * How many steps to enter\exit or inside your home? * PCP Dr. Azevedo * Pharmacy [facility] * Preadmission Environment Home with Family * ADLs Independent * Equipment Cane Shower Chair * List name and contact numbers for known caregivers / representatives who currently or will assist patient after discharge: josé miguel Stewart, * Verbal permission to speak to the caregivers and representatives has been obtained from the patient. Yes * Community resources currently utilized None * Additional services required to return to the preadmission environment? No * Can the patient safely return to the preadmission environment? Yes * Has this patient been hospitalized within the prior 30 days at any hospital? No Last DP export: 08/19/18 11:46 Patient Name: CINDY ROMERO Page 12105 at 1253 All edits/amendments must be made on the electronic document DICTATION DATE: 08/19/18 1253 SCHOOL PHOTOGRAPH EDITOR: NINI 08/19/18 1253 RPT#: [id number] DC DATE: STATUS: ADM IN [facility] [address] [place] [address] END OF REPORT
--- NOTE | 2018-08-19 13:01 | MORECARE ---
CASE MANAGEMENT DISCHARGE SUMMARY PATIENT: CINDY ROMERO UNIT: [id number] ADM DATE: 08/18/18 AGE: 88 : 29 SEX: F ROOM/BED: D.1206 AUTHOR: FIORELLA,DOC PHYSICIAN: REFERRING PHYSICIAN: GIANNA AZEVEDO MD DATE OF SERVICE: 08/19/18 Discharge Plan Patient Name: CINDY ROMERO Facility: [facility]:[place] : 1930 Planned Disposition: Home Anticipated Discharge Date: Discharge Date: Expected LOS: Initial Reviewer: [email or web address] Initial Review Date: 08/19/2018 Generated: 08/19/18 2:01 pm Comments DCP- Discharge Planning Updated by [email or web address]: Mary Grace Rosa on 08/19/18 11:[address] After obtaining verbal consent, CM spoke with patient and daughter, Bruna Reyes ([phone]), about discharge planning / needs. Patient and daughter agree that the plan is to discharge back home where patient lives with her adult grandson, Sarbjit Dewey ([phone]). Patient states she has a walk in shower with shower chair and hand held shower head. Denies any needs at this time. States her daughter, Bruna, will transport her home upon discharge. Patient may need walk test prior to discharge as she does not have home oxygen. CM will continue to follow and assist as needed with discharge planning / needs. DCPIA - Discharge Planning Initial Assessment Updated by [id number]: Mary Grace Rosa on 08/19/18 12:57 pm * Is the patient Alert and Oriented? Yes * How many steps to enter\exit or inside your home? * PCP Dr. Azevedo * Pharmacy [facility] * Preadmission Environment Home with Family * ADLs Independent * Equipment Cane Shower Chair * List name and contact numbers for known caregivers / representatives who currently or will assist patient after discharge: josé miguel Stewart, Bruna Reyes, daughter, * Verbal permission to speak to the caregivers and representatives has been obtained from the patient. Yes * Community resources currently utilized None * Additional services required to return to the preadmission environment? No * Can the patient safely return to the preadmission environment? Yes * Has this patient been hospitalized within the prior 30 days at any hospital? No Last DP export: 08/19/18 11:53 Patient Name: CINDY ROMERO Page 11280 at 1301 All edits/amendments must be made on the electronic document DICTATION DATE: 08/19/18 1300 COPY TECHNICIAN: NINI 08/19/18 1300 RPT#: [id number] DC DATE: STATUS: ADM IN [facility] [address] [place] [address] END OF REPORT
[2018-08-19 13:17] VITALS: BMI 21.0
[2018-08-19 16:06] VITALS: BP 137/50
[2018-08-19 19:00] VITALS: BP 145/75
[2018-08-20] VITALS: BP 135/56
[2018-08-20 05:36] VITALS: BP 128/58
[2018-08-20 07:36] VITALS: BP 116/45
[2018-08-20 11:12] VITALS: BP 136/73
[2018-08-20 15:13] VITALS: BP 148/68
[2018-08-20] MEDS ORDERED: PIOGLITAZONE15 MG PO (15:27)
[2018-08-20 21:23] VITALS: BP 129/69
[2018-08-21 00:33] VITALS: BP 92/46
[2018-08-21 05:25] LABS: BASOPHILS 0.1 % (0-2); EOSINOPHILS 0.1 % (0-7); HEMATOCRIT 29.9 % (36.0-48.0); HEMOGLOBIN 9.7 g/dL (12-16); IMMATURE GRANULOCYTES 0.1 % (0-5); LYMPHOCYTES 7.6 % (15-50); MCH 32.2 pg (26.0-34.0); MCHC 32.4 g/dL (31.0-37.0); MEAN PLATELET VOLUME 10.3 fL (7.4-10.4); MONOCYTES 8.8 % (2-11); NEUTROPHILS 83.3 % (40-80); PLATELET COUNT 156 10x3/uL (130-400); RBC 3.01 10x6/uL (4.00-5.40); WBC 6.8 10x3/uL (4.8-10.8)
[2018-08-21 05:58] LABS: MCV 99.3 fL (80.0-100.0)
[2018-08-21 06:02] LABS: ANION GAP 14.7 mmol/L (8-16); CARBON DIOXIDE 23.7 mmol/L (21.0-32.0); POTASSIUM - SERUM 4.4 mmol/L (3.5-5.1)
[2018-08-21 06:03] LABS: CREATININE - SERUM 1.4 mg/dL (0.6-1.3)
[2018-08-21 06:24] VITALS: BP 114/59
[2018-08-21 07:32] VITALS: BP 119/55
[2018-08-21 11:30] VITALS: BP 135/64
--- NOTE | 2018-08-21 13:20 | HP ---
PATIENT: CINDY ROMERO MEDICAL RECORD: [id number] ACCOUNT: [id number] LOCATION:[address] : [birth year] ADMISSION DATE: 08/18/18 PCP: GIANNA AZEVEDO MD HISTORY AND PHYSICAL EXAMINATION Date of actual admission was 08/18/2018, I saw her on 08/19/2018. CHIEF COMPLAINT: Nausea, vomiting, weakness. HISTORY OF PRESENT ILLNESS: This is an 88-year-old female with a past history of coronary artery disease, anemia, valvular heart disease, and diabetes, who was brought to the ER, the afternoon of 08/18/2018 with nausea, vomiting, and weakness. She had some chest discomfort and a little cough. Her O2 sat was 86% on room air. Symptoms had just started the day before. EKG showed nonspecific changes in V1 and V2 and ST depressions in the inferior leads. Her lactic acid was elevated at 3.1. Her initial troponin was 0.22 that went up to 29.7. She is admitted. PAST MEDICAL AND SURGICAL HISTORY: Remote history of stroke with little residual. She has diabetes, coronary artery disease, anemia, valvular heart disease, cataracts, and breast cancer in 2013. PAST SURGICAL HISTORY: Coronary artery bypass graft times 3 in 1996. She has had coronary stents. 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 ALLERGIES: SULFA, CODEINE, AND TEQUIN. HOME MEDICATIONS: Plavix 75 mg a day, iron sulfate 325 mg once a day, Hyzaar 100/25 once a day, metoprolol 50 mg twice a day, pravastatin 40 mg a day, Norvasc 5 mg a day, Xanax at bedtime and p.r.n. anxiety, Zofran p.r.n., Protonix 40 mg a day, Amaryl 1 mg a day, Actos 15 mg a day. SOCIAL HISTORY: She is . 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 FAMILY HISTORY: Significant for heart disease and cancer. REVIEW OF SYSTEMS: GENERAL: No major weight changes. HEENT: No particular sinus or allergy problems. RESPIRATORY: No history of emphysema or asthma. CARDIAC: See above history, followed by [place] cardiology, and Dr. Dorsey in [place] for heart valve. GASTROINTESTINAL: She has had GI bleed in the past. GENITOURINARY: No significant problems there. MUSCULOSKELETAL: Has had a little arthritis, but nothing severe. NEUROLOGIC: No migraines or seizures. PSYCHIATRIC: She has had some anxiety. PHYSICAL EXAMINATION: VITAL SIGNS: Temperature 98.2, pulse 68, respirations 18, blood pressure 137/50, O2 sat 93%. GENERAL: She does not appear in acute distress. HEENT: Grossly within normal limits. NECK: Supple. HISTORY AND PHYSICAL [id number] NICKCINDY L HEART: Regular rate and rhythm. LUNGS: Decreased breath sounds in the bases. ABDOMEN: Soft. EXTREMITIES: No edema. LABORATORY DATA: CBC with a white count of 12,600, hemoglobin 11.7, hematocrit 35.8, INR 1.05. Basic metabolic panel is all okay except glucose is 254. Magnesium was 1.7. Liver functions were fine. Amylase and lipase were fine. INR 1.05. Urinalysis was okay. Chest x-ray with patchy airspace disease. ASSESSMENT: 1. Pneumonia. 2. Chest pain in a diabetic with coronary artery disease. PLAN: We will admit, start on antibiotics for her pneumonia. Cardiology has been consulted. Other tests or procedures as warranted. TRANSINT:[id number] Voice Confirmation ID: [id number] DOCUMENT ID: [id number] GIANNA AZEVEDO MD at 1320 CC: [id number] DICTATION DATE: 08/20/18 1523 SECURITY SYSTEMS ADMINISTRATOR: 08/20/18 194 ADM IN [place] [id number] [place] [id number]
[2018-08-21 15:01] VITALS: BP 98/42
[2018-08-21 20:54] VITALS: BP 115/52
[2018-08-22] VITALS: BP 91/50
[2018-08-22 05:08] VITALS: BP 104/55
[2018-08-22 06:00] LABS: BASOPHILS 0.2 % (0-2); EOSINOPHILS 2.4 % (0-7); HEMATOCRIT 28.5 % (36.0-48.0); HEMOGLOBIN 9.3 g/dL (12-16); IMMATURE GRANULOCYTES 0.2 % (0-5); MCH 32.1 pg (26.0-34.0); MCHC 32.6 g/dL (31.0-37.0); MCV 98.3 fL (80.0-100.0); MEAN PLATELET VOLUME 10.3 fL (7.4-10.4); NEUTROPHILS 71.2 % (40-80); PLATELET COUNT 160 10x3/uL (130-400); WBC 6.2 10x3/uL (4.8-10.8)
[2018-08-22 06:09] LABS: CALCIUM 8.4 mg/dL (8.5-10.1); CARBON DIOXIDE 22.4 mmol/L (21.0-32.0); CREATININE - SERUM 1.5 mg/dL (0.6-1.3); POTASSIUM - SERUM 4.4 mmol/L (3.5-5.1)
[2018-08-22 09:08] VITALS: BP 153/61
[2018-08-22 12:48] VITALS: BP 130/59
--- NOTE | 2018-08-22 13:57 | EC ---
PATIENT:CINDY ROMERO DATE OF SERVICE: 08/18/18 SEX: F MEDICAL RECORD: [id number] DATE OF : [birth year] LOCATION:D.M2 D.212 AGE OF PATIENT: 88 ADMISSION DATE: 08/18/18 REFERRING PHYSICIAN: INTERPRETING PHYSICIAN: YVETTE DAVIDSON MD ECHOCARDIOGRAM REPORT ECHO CHARGES 4 ECHO COMPLETE Date: 08/20/17 CLINICAL DIAGNOSIS: CHF, MO ECHOCARDIOGRAPHIC MEASUREMENTS (adult normal given) AC root (d.<3.7cm) 2.9 cm LV Septum d (<1.2 cm> 1.4 cm Valve Excursion 0.7 cm LV Septum (systole) 1.5 cm Left Atria (s.<4.0cm> 3.6 cm LVPW d(<1.2cm) 1.0 cm RV (d.<2.3cm) 2.6 cm LVPW (sytole) 1.0 cm LV diastole(<5.6CM) 4.7 cm MV E-F(>70mm/sec) cm LV systole 3.9 cm LVOT Diameter 1.4 cm MV exc.(>10mm) cm Est.ejection fraction (50-75%) % DOPPLER: LVIT cm/sec A 82 cm/sec E 116 cm/sec LA cm/sec RVSP 46.1 mmHg LVOT 94 cm/sec AOP1/2T m/s Asc. Ao 353 cm/sec RVOT 74 cm/sec RA cm/sec PA 86 cm/sec AV Gradient Peak 49.8 mmHg AV Mean 32.9 mmHg AV Area 0.3 cm MV Gradient Peak 6.3 mmHg MV Mean 2.8 mmHg MV Area cm COMMENTS: Art Model: 5 KURTIS BROCK Hardwood Floor Installer: 3 Dr. Hitchcock TAPE# PACS Pericardial Effusion N DATE OF SERVICE: Adequate 2D, Color Flow Imaging, and Spectral Doppler and M-Mode Mild LVH. LV internal dimensions are normal. Wall motion is normal. EF greater than or equal to 50% to 55%. Aortic valve is calcified with restriction of leaflet motion. Peak gradient of 50 mmHg putting this in the moderate range. Left atrium is normal at 3.6 cm. Mitral valve shows no prolapse. Mild MR. Right sided chambers are normal. Mild TR. ECHOCARDIOGRAM REPORT [id number] CINDY ROMERO TRANSINT:[id number] Voice Confirmation ID: [id number] DOCUMENT ID: [id number] YVETTE DAVIDSON MD at 1357 CC: [id number] DICTATION DATE: 08/21/18 013 [employer] OFFICER: 08/21/18 0429 ADM IN [facility] [address] [place] [id number]
[2018-08-22 16:40] VITALS: BP 119/62
[2018-08-22 21:41] VITALS: BP 123/66
[2018-08-23 01:23] VITALS: BP 139/65
[2018-08-23 05:44] VITALS: BP 124/59
[2018-08-23 07:06] LABS: BASOPHILS 0.1 % (0-2); EOSINOPHILS 2.6 % (0-7); HEMATOCRIT 28.4 % (36.0-48.0); HEMOGLOBIN 9.4 g/dL (12-16); IMMATURE GRANULOCYTES 0.3 % (0-5); LYMPHOCYTES 16.1 % (15-50); MCH 32.3 pg (26.0-34.0); MCHC 33.1 g/dL (31.0-37.0); MCV 97.6 fL (80.0-100.0); MEAN PLATELET VOLUME 10.6 fL (7.4-10.4); MONOCYTES 10.6 % (2-11); NEUTROPHILS 70.3 % (40-80); PLATELET COUNT 175 10x3/uL (130-400); RBC 2.91 10x6/uL (4.00-5.40); RDW 13.9 % (11.5-14.5)
[2018-08-23 07:10] LABS: ANION GAP 17.7 mmol/L (8-16); CALCIUM 8.7 mg/dL (8.5-10.1); CARBON DIOXIDE 20.6 mmol/L (21.0-32.0); CREATININE - SERUM 1.3 mg/dL (0.6-1.3); POTASSIUM - SERUM 4.3 mmol/L (3.5-5.1)
[2018-08-23 14:50] VITALS: Ht 157.5 cm; Wt 59.5 kg
[2018-08-23 20:00] VITALS: BP 118/55
[2018-08-24] VITALS: BP 131/62
[2018-08-24 04:00] VITALS: BP 134/57
[2018-08-24 06:06] LABS: BASOPHILS 0.1 % (0-2); EOSINOPHILS 2.4 % (0-7); HEMATOCRIT 29.9 % (36.0-48.0); HEMOGLOBIN 9.6 g/dL (12-16); IMMATURE GRANULOCYTES 0.2 % (0-5); LYMPHOCYTES 8.2 % (15-50); MCH 32.1 pg (26.0-34.0); MCHC 32.1 g/dL (31.0-37.0); MEAN PLATELET VOLUME 10.2 fL (7.4-10.4); MONOCYTES 10.1 % (2-11); PLATELET COUNT 176 10x3/uL (130-400); RBC 2.99 10x6/uL (4.00-5.40); RDW 14.2 % (11.5-14.5)
[2018-08-24 06:12] LABS: WBC 8.9 10x3/uL (4.8-10.8)
[2018-08-24 06:32] LABS: ANION GAP 15.1 mmol/L (8-16); CALCIUM 8.9 mg/dL (8.5-10.1); CARBON DIOXIDE 23.2 mmol/L (21.0-32.0); CREATININE - SERUM 1.3 mg/dL (0.6-1.3); POTASSIUM - SERUM 4.3 mmol/L (3.5-5.1)
[2018-08-24 07:00] VITALS: BP 143/64
[2018-08-24 11:00] VITALS: BP 124/65
--- NOTE | 2018-08-24 12:44 | MORECARE ---
CASE MANAGEMENT DISCHARGE SUMMARY PATIENT: CINDY ROMERO UNIT: [id number] ADM DATE: 08/18/18 AGE: 88 : 29 SEX: F ROOM/BED: D.8672 AUTHOR: FIORELLA,DOC PHYSICIAN: REFERRING PHYSICIAN: GIANNA AZEVEDO MD DATE OF SERVICE: 08/24/18 Discharge Plan Patient Name: CINDY ROMERO Facility: [facility]:[place] : 1930 Planned Disposition: Home Anticipated Discharge Date: Discharge Date: Expected LOS: Initial Reviewer: [email or web address] Initial Review Date: 08/19/2018 Generated: 08/24/18 1:43 pm Comments DCP- Discharge Planning Updated by [email or web address]: Lorri Figueroa on 08/24/18 11:[address] REHAB PRESCREENING ORDERED TODAY. PHYSICAL THERAPY EVAL.TO BE COMPLETED DUE TO PATIENT'S NAUSEA. OT CONSULT PENDING. AWAIT SCREENING. PATIENT WITH TRADITIONAL MEDICARE. DCP- Discharge Planning Updated by [email or web address]: Mary Grace Rosa on 08/19/18 11:[address] After obtaining verbal consent, CM spoke with patient and daughter, Bruna Reyes ([phone]), about discharge planning / needs. Patient and daughter agree that the plan is to discharge back home where patient lives with her adult grandson, Sarbjit Dewey ([phone]). Patient states she has a walk in shower with shower chair and hand held shower head. Denies any needs at this time. States her daughter, Bruna, will transport her home upon discharge. Patient may need walk test prior to discharge as she does not have home oxygen. CM will continue to follow and assist as needed with discharge planning / needs. DCPIA - Discharge Planning Initial Assessment Updated by [email or web address]: Mary Grace Rosa on 08/19/18 12:57 pm * Is the patient Alert and Oriented? Yes * How many steps to enter\exit or inside your home? * PCP Dr. Azevedo * Pharmacy [facility] * Preadmission Environment Home with Family * ADLs Independent * Equipment Cane Shower Chair * List name and contact numbers for known caregivers / representatives who currently or will assist patient after discharge: josé miguel Stewart, Bruan Reyes, daughter, * Verbal permission to speak to the caregivers and representatives has been obtained from the patient. Yes * Community resources currently utilized None * Additional services required to return to the preadmission environment? No * Can the patient safely return to the preadmission environment? Yes * Has this patient been hospitalized within the prior 30 days at any hospital? No Last DP export: 08/19/18 12:01 Patient Name: CINDY ROMERO Page 97766 at 1244 All edits/amendments must be made on the electronic document DICTATION DATE: 08/24/181242 LIBRARY MONITOR: NINI 08/24/181242 RPT#: [id number] DC DATE: STATUS: ADM IN [facility] [address] [place] [address] END OF REPORT
[2018-08-24 15:00] VITALS: BP 145/56
[2018-08-24 20:25] VITALS: BP 128/71
[2018-08-25 00:30] VITALS: BP 126/63
[2018-08-25 04:45] VITALS: BP 119/53
[2018-08-25 06:26] LABS: BASOPHILS 0.1 % (0-2); EOSINOPHILS 1.3 % (0-7); HEMATOCRIT 30.6 % (36.0-48.0); HEMOGLOBIN 9.8 g/dL (12-16); IMMATURE GRANULOCYTES 0.6 % (0-5); MCH 32.2 pg (26.0-34.0); MCV 100.7 fL (80.0-100.0); MEAN PLATELET VOLUME 10.4 fL (7.4-10.4); MONOCYTES 9.3 % (2-11); NEUTROPHILS 78.7 % (40-80); PLATELET COUNT 198 10x3/uL (130-400); RBC 3.04 10x6/uL (4.00-5.40); RDW 14.5 % (11.5-14.5); WBC 8.6 10x3/uL (4.8-10.8)
[2018-08-25 06:35] LABS: ANION GAP 16.4 mmol/L (8-16); CALCIUM 8.4 mg/dL (8.5-10.1); CARBON DIOXIDE 20.8 mmol/L (21.0-32.0); CREATININE - SERUM 1.2 mg/dL (0.6-1.3); POTASSIUM - SERUM 4.2 mmol/L (3.5-5.1)
[2018-08-25 08:25] VITALS: BP 146/67
[2018-08-25 11:38] VITALS: BP 146/54
[2018-08-25 16:28] VITALS: BP 142/95
[2018-08-25 21:20] VITALS: BP 156/66
[2018-08-26 00:57] VITALS: BP 146/68
[2018-08-26 05:53] VITALS: BP 115/60
[2018-08-26 05:57] LABS: BASOPHILS 0.1 % (0-2); EOSINOPHILS 0.2 % (0-7); HEMATOCRIT 30.2 % (36.0-48.0); HEMOGLOBIN 9.6 g/dL (12-16); IMMATURE GRANULOCYTES 0.8 % (0-5); LYMPHOCYTES 10.3 % (15-50); MCH 31.6 pg (26.0-34.0); MCHC 31.8 g/dL (31.0-37.0); MCV 99.3 fL (80.0-100.0); MEAN PLATELET VOLUME 10.5 fL (7.4-10.4); MONOCYTES 10.3 % (2-11); NEUTROPHILS 78.3 % (40-80); PLATELET COUNT 209 10x3/uL (130-400); RBC 3.04 10x6/uL (4.00-5.40); RDW 14.6 % (11.5-14.5); WBC 9.2 10x3/uL (4.8-10.8)
[2018-08-26 08:41] VITALS: BP 139/52
[2018-08-26 11:43] VITALS: BP 99/57
[2018-08-26 16:43] VITALS: BP 109/55
--- NOTE | 2018-08-26 17:08 | MORECARE ---
CASE MANAGEMENT DISCHARGE SUMMARY PATIENT: CINDY ROMERO UNIT: [id number] ADM DATE: 08/18/18 AGE: 88 : 29 SEX: F ROOM/BED: D.5837 AUTHOR: FIORELLA,DOC PHYSICIAN: REFERRING PHYSICIAN: GIANNA AZEVEDO MD DATE OF SERVICE: 08/26/18 Discharge Plan Patient Name: CINDY ROMERO Facility: [facility]:[place] : 1930 Planned Disposition: Home Anticipated Discharge Date: Discharge Date: Expected LOS: Initial Reviewer: [email or web address] Initial Review Date: 08/19/2018 Generated: 08/26/18 6:08 pm Comments DCP- Discharge Planning Updated by [email or web address]: Lorri Figueroa on 08/24/18 11:[address] REHAB PRESCREENING ORDERED TODAY. PHYSICAL THERAPY EVAL.TO BE COMPLETED DUE TO PATIENT'S NAUSEA. OT CONSULT PENDING. AWAIT SCREENING. PATIENT WITH TRADITIONAL MEDICARE. DCP- Discharge Planning Updated by [email or web address]: Mary Grace Rosa on 08/19/18 11:[address] After obtaining verbal consent, CM spoke with patient and daughter, Bruna Reyes ([phone]), about discharge planning / needs. Patient and daughter agree that the plan is to discharge back home where patient lives with her adult grandson, Sarbjit Dewey ([phone]). Patient states she has a walk in shower with shower chair and hand held shower head. Denies any needs at this time. States her daughter, Bruna, will transport her home upon discharge. Patient may need walk test prior to discharge as she does not have home oxygen. CM will continue to follow and assist as needed with discharge planning / needs. DCPIA - Discharge Planning Initial Assessment Updated by [id number]: Mary Grace Rosa on 08/19/18 12:57 pm * Is the patient Alert and Oriented? Yes * How many steps to enter\exit or inside your home? * PCP Dr. Azevedo * Pharmacy [facility] * Preadmission Environment Home with Family * ADLs Independent * Equipment Cane Shower Chair * List name and contact numbers for known caregivers / representatives who currently or will assist patient after discharge: josé miguel Stewart, Bruna Reyes, daughter, * Verbal permission to speak to the caregivers and representatives has been obtained from the patient. Yes * Community resources currently utilized None * Additional services required to return to the preadmission environment? No * Can the patient safely return to the preadmission environment? Yes * Has this patient been hospitalized within the prior 30 days at any hospital? No Coverage Notice Reviewer: [id number] Romel Wilkinson Notice Issued Date-Time: 08/26/2018 17:00 Notice Type: IM Discharge Notice Notice Delivered To: Family Member Relationship to Patient: Daughter Facilitator Name: BRUNA REYES Delivery Method: HAND - Hand Delivered Concha Days: Prior Verbal Notification: Recipient Understood Notice: Yes Recipient Signature: Yes Med Rec Note Co-signed by Attending: Coverage Notice Comment: Last DP export: 08/24/18 11:43 am Patient Name: CINDY ROMERO Page [phone] at 1708 All edits/amendments must be made on the electronic document DICTATION DATE: 08/26/181707 UTILITY DIVISION PROJECT MANAGER: NINI 08/26/181707 RPT#: [id number] DC DATE: STATUS: ADM IN [facility] [address] [place] [address] END OF REPORT
--- NOTE | 2018-08-26 17:17 | MORECARE ---
CASE MANAGEMENT DISCHARGE SUMMARY PATIENT: CINDY ROMERO UNIT: [id number] ADM DATE: 08/18/18 AGE: 88 : 29 SEX: F ROOM/BED: D.9294 AUTHOR: FIORELLA,DOC PHYSICIAN: REFERRING PHYSICIAN: GIANNA AZEVEDO MD DATE OF SERVICE: 08/26/18 Discharge Plan Patient Name: CINDY ROMERO [facility] [facility] 1930 Planned Disposition: Home Anticipated Discharge Date: Discharge Date: Expected LOS: Initial Reviewer: [email or web address] Initial Review Date: 08/19/2018 Generated: 08/26/18 6:17 pm Comments DCP- Discharge Planning Updated by [id number]: Jonathan Wilkinson on 08/26/18 4:[address] Patient Name: CINDY ROMERO Encounter No: [id number] : 1930 Primary Insurance: MEDICARE A & B Anticipated DC Date: Planned Disposition: INPATIENT REHAB External Planned Provider: [facility] DCP follow-up note: CM SPOKE TO ARNAUD OF INPATIENT REHAB, THEY ARE SCREENING PT FOR REHAB AND HAVE CONCERNS REGARDING PT'S PRO BNP. CM NOTIFIED DR. AZEVEDO IN OFFICE VIA PHONE. PT NOTIFIED, IN AGREEMENT WITH DISCHARGE TO INPATIENT REHAB AND REPORTS HER DAUGHTER BRUNA WILL BE MAKING THE DECISION REGARDING REHAB. CM CALLED BRUNA AT [phone], DICUSSED REHAB ORDER AND PROVIDERS WELL POSSIBLE DISCHARGE TO REHAB TOMORROW. BRUNA INFORMED CM THAT PT NEEDS REHAB AND SHE IS IN AGREEMENT WITH REHAB AT [place]. BRUNA WILL TALK TO PT ABOUT DECISION FOR REHAB THIS EVENING AND SHE IS BRINGING PT A SPECIAL EVENING MEAL AND WILL HOPEFULLY STIMULATE PT'S APPETITE. IMPORTANT MESSAGE FROM [employer] PROVIDED AND DISCUSSED TO PT IN [place], DISCUSSED WITH DAUGHTER VIA PHONE. CM WAITING ADMISSION DETERMINATION FROM [facility] WHO PLANS TO ACCEPT PT PENDING MEDICAL STABILITY. Jonathan Wilkinson, CASE MANAGEMENT DCP- Discharge Planning Updated by [id number]: Lorri Figueroa on 08/24/18 11:[address] REHAB PRESCREENING ORDERED TODAY. PHYSICAL THERAPY EVAL.TO BE COMPLETED DUE TO PATIENT'S NAUSEA. OT CONSULT PENDING. AWAIT SCREENING. PATIENT WITH TRADITIONAL MEDICARE. DCP- Discharge Planning Updated by [id number]: Mary Grace Rosa on 08/19/18 11:[address] After obtaining verbal consent, CM spoke with patient and daughter, Bruna Reyes ([phone]), about discharge planning / needs. Patient and daughter agree that the plan is to discharge back home where patient lives with her adult grandson, Sarbjit Dewey ([phone]). Patient states she has a walk in shower with shower chair and hand held shower head. Denies any needs at this time. States her daughter, Bruna, will transport her home upon discharge. Patient may need walk test prior to discharge as she does not have home oxygen. CM will continue to follow and assist as needed with discharge planning / needs. DCPIA - Discharge Planning Initial Assessment Updated by [id number]: Mary Gracebladimir Rosa on 08/19/18 12:57 pm * Is the patient Alert and Oriented? Yes * How many steps to enter\exit or inside your home? * PCP Dr. Azevedo * Pharmacy [facility] * Preadmission Environment Home with Family * ADLs Independent * Equipment Cane Shower Chair * List name and contact numbers for known caregivers / representatives who currently or will assist patient after discharge: josé miguel Stewart, Bruna Reyes, daughter, * Verbal permission to speak to the caregivers and representatives has been obtained from the patient. Yes * Community resources currently utilized None * Additional services required to return to the preadmission environment? No * Can the patient safely return to the preadmission environment? Yes * Has this patient been hospitalized within the prior 30 days at any hospital? No Coverage Notice Reviewer: [id number] Romel Wilkinson Notice Issued Date-Time: 08/26/2018 17:00 Notice Type: IM Discharge Notice Notice Delivered To: Family Member Relationship to Patient: Daughter Toll Line Inspector Name: BRUNA REYES Delivery Method: HAND - Hand Delivered Concha Days: Prior Verbal Notification: Recipient Understood Notice: Yes Recipient Signature: Yes Med Rec Note Co-signed by Attending: Coverage Notice Comment: Last DP export: 08/26/18 4:08 pm Patient Name: CINDY ROMERO Page 40340 at 1717 All edits/amendments must be made on the electronic document DICTATION DATE: 08/26/181716 PLUMBER PIPE FITTING: NINI 08/26/181716 RPT#: [id number] DC DATE: STATUS: ADM IN [facility] [address] [place] [address] END OF REPORT
[2018-08-26 20:56] VITALS: BP 122/49
[2018-08-27 02:02] VITALS: BP 109/44
[2018-08-27 06:09] VITALS: BP 121/46
[2018-08-27 08:24] VITALS: BP 121/47
[2018-08-27 11:09] VITALS: BP 118/76
[2018-08-27] MEDS ORDERED: VIBRAMYCIN 100100 MG PO (18:13)
[2018-08-27] MEDS ORDERED: ASPIRIN81 MG PO (18:14)
[2018-08-27] MEDS ORDERED: ACETAMINOPHEN325 MG PO (18:14)
[2018-08-27] MEDS ORDERED: LASIX20 MG PO (18:15)
--- NOTE | 2018-08-28 09:21 | MORECARE ---
CASE MANAGEMENT DISCHARGE SUMMARY PATIENT: CINDY ROMERO UNIT: [id number] ADM DATE: 08/18/18 AGE: 88 : 29 SEX: F ROOM/BED: D.7699 AUTHOR: FIORELLADOC PHYSICIAN: REFERRING PHYSICIAN: GIANNA AZEVEDO MD DATE OF SERVICE: 08/28/18 Discharge Plan Patient Name: CINDY ROMERO Facility: [facility]:[place] : 1930 Planned Disposition: Inpatient Rehab Anticipated Discharge Date: 08/27/18 Discharge Date: 08/27/2018 Expected LOS: 9 Initial Reviewer: [id number] Initial Review Date: 08/19/2018 Generated: 08/28/18 10:21 am Comments DCP- Discharge Planning Updated by [email or web address]: Jonathan Wilkinson on 08/26/18 4:[address] Patient Name: CINDY ROMERO Encounter No: [id number] : 1930 Primary Insurance: MEDICARE A & B Anticipated DC Date: Planned Disposition: INPATIENT REHAB External Planned Provider: [facility] DCP follow-up note: CM SPOKE TO ARNAUD OF INPATIENT REHAB, THEY ARE SCREENING PT FOR REHAB AND HAVE CONCERNS REGARDING PT'S PRO BNP. CM NOTIFIED DR. AZEVEDO IN OFFICE VIA PHONE. PT NOTIFIED, IN AGREEMENT WITH DISCHARGE TO INPATIENT REHAB AND REPORTS HER DAUGHTER BRUNA WILL BE MAKING THE DECISION REGARDING REHAB. CM CALLED BRUNA AT [phone], DICUSSED REHAB ORDER AND PROVIDERS WELL POSSIBLE DISCHARGE TO REHAB TOMORROW. BURNA INFORMED CM THAT PT NEEDS REHAB AND SHE IS IN AGREEMENT WITH REHAB AT [place]. BRUNA WILL TALK TO PT ABOUT DECISION FOR REHAB THIS EVENING AND SHE IS BRINGING PT A SPECIAL EVENING MEAL AND WILL HOPEFULLY STIMULATE PT'S APPETITE. IMPORTANT MESSAGE FROM [employer] PROVIDED AND DISCUSSED TO PT IN [place], DISCUSSED WITH DAUGHTER VIA PHONE. CM WAITING ADMISSION DETERMINATION FROM [facility] WHO PLANS TO ACCEPT PT PENDING MEDICAL STABILITY. Jonathan Wilkinson, CASE MANAGEMENT DCP- Discharge Planning Updated by [id number]: Lorri Figueroa on 08/24/18 11:[address] REHAB PRESCREENING ORDERED TODAY. PHYSICAL THERAPY EVAL.TO BE COMPLETED DUE TO PATIENT'S NAUSEA. OT CONSULT PENDING. AWAIT SCREENING. PATIENT WITH TRADITIONAL MEDICARE. DCP- Discharge Planning Updated by [id number]: Mary Grace Rosa on 08/19/18 11:[address] After obtaining verbal consent, CM spoke with patient and daughter, Bruna Reyes ([phone]), about discharge planning / needs. Patient and daughter agree that the plan is to discharge back home where patient lives with her adult grandson, Sarbjit Dewey ([phone]). Patient states she has a walk in shower with shower chair and hand held shower head. Denies any needs at this time. States her daughter, Bruna, will transport her home upon discharge. Patient may need walk test prior to discharge as she does not have home oxygen. CM will continue to follow and assist as needed with discharge planning / needs. DCPIA - Discharge Planning Initial Assessment Updated by [email or web address]: Mary Gracebladimir Rosa on 08/19/18 12:57 pm * Is the patient Alert and Oriented? Yes * How many steps to enter\exit or inside your home? * PCP Dr. Azevedo * Pharmacy [facility] * Preadmission Environment Home with Family * ADLs Independent * Equipment Cane Shower Chair * List name and contact numbers for known caregivers / representatives who currently or will assist patient after discharge: josé miguel Stewart, Bruna Reyes, daughter, * Verbal permission to speak to the caregivers and representatives has been obtained from the patient. Yes * Community resources currently utilized None * Additional services required to return to the preadmission environment? No * Can the patient safely return to the preadmission environment? Yes * Has this patient been hospitalized within the prior 30 days at any hospital? No Coverage Notice Reviewer: [id number] - Jonathan Wilkinson Notice Issued Date-Time: 08/26/2018 17:00 Notice Type: IM Discharge Notice Notice Delivered To: Family Member Relationship to Patient: Daughter Line Controller Name: BRUNA REYES Delivery Method: HAND - Hand Delivered Concha Days: Prior Verbal Notification: Recipient Understood Notice: Yes Recipient Signature: Yes Med Rec Note Co-signed by Attending: Coverage Notice Comment: Last DP export: 08/26/18 4:17 pm Patient Name: CINDY ROMERO Page 26097 at 0921 All edits/amendments must be made on the electronic document DICTATION DATE: 08/28/18920 MEDIA SENIOR RECRUITER: NINI 08/28/18920 RPT#: [id number] DC DATE:08/27/18 STATUS: DIS IN [facility] [address] [place] [address] END OF REPORT
== END 2018-08-27 19:08 | DRG 246 ==
LOC: D.ER 15:10 → D.M3 18:10 → D.M2 18:10 → D.EDHOLD 18:10 → D.M3 19:10 → D.M2 08-19 16:17
PROVIDERS: Family Medicine; Internal Medicine Interventional Cardiology; ADMIT Family Medicine
PROC: 4A023N7 Measurement of Cardiac Sampling and Pressure, Left Heart, Percutaneous Approach (ICD-10-PCS; 2018-08-19)
PROC: B2131ZZ Fluoroscopy of Multiple Coronary Artery Bypass Grafts using Low Osmolar Contrast (ICD-10-PCS; 2018-08-19)
PROC: B2111ZZ Fluoroscopy of Multiple Coronary Arteries using Low Osmolar Contrast (ICD-10-PCS; 2018-08-19)
PROC: B2181ZZ Fluoroscopy of Left Internal Mammary Bypass Graft using Low Osmolar Contrast (ICD-10-PCS; 2018-08-19)
PROC: B2151ZZ Fluoroscopy of Left Heart using Low Osmolar Contrast (ICD-10-PCS; 2018-08-19)
PROC: 027136Z Dilation of Coronary Artery, Two Arteries with Three Drug-eluting Intraluminal Devices, Percutaneous Approach (ICD-10-PCS; principal; 2018-08-19 14:07)
PROC: 027034Z Dilation of Coronary Artery, One Artery with Drug-eluting Intraluminal Device, Percutaneous Approach (ICD-10-PCS; 2018-08-22)
PROC: B240ZZ3 Ultrasonography of Single Coronary Artery, Intravascular (ICD-10-PCS; 2018-08-22)
DX: I21.4 Non-ST elevation (NSTEMI) myocardial infarction (principal); J18.9 Pneumonia, unspecified organism; I25.119 Atherosclerotic heart disease of native coronary artery with unspecified angina pectoris; K21.9 Gastro-esophageal reflux disease without esophagitis; E11.9 Type 2 diabetes mellitus without complications; D50.9 Iron deficiency anemia, unspecified; F41.9 Anxiety disorder, unspecified

== ENCOUNTER 2018-08-27 19:36 | Inpatient (IN) | payer MEDICARE, BC ==
[~2018-08-27] VITALS: Ht 157.5 cm; Wt 59.4 kg
[~2018-08-27 19:36] MED LIST changes: +ACETAMINOPHEN325 MG PO; +ASPIRIN81 MG PO; +COZAAR25 MG PO; +LASIX20 MG PO; +PIOGLITAZONE15 MG PO; +VIBRAMYCIN 100100 MG PO
[2018-08-27 20:30] VITALS: BP 135/55; BMI 24.0
--- NOTE | 2018-08-27 22:24 | NUR ---
ADMITTED TO PHYSICAL REHAB TO ROOM 1112B. ALERT AND ORIENTED WITH REPORTED PERIODS OF CONFUSION. RESPIRATIONS UNLABORED. ANXIOUS AND SLIGHTLY AGIATED ABOUT BEING TRANSFERED TO REHAB "[facility]TER [facility]" ADMISSION ASSESSMENT DONE AND TREATED ORDERED FOR ANXIETY. SALINE LOCK INTACT TO RIGHT UPPER ARM. NO CURRENT C/O PAIN. NOTED REDNESS TO BILATERAL BUTTOCKS AND UPPER THIGHS. EDEMA NOTED TO BILATERAL LOWER EXTREMITIES. HISTORY OF DIABETES, HEART DISEASE AND BREAST CANCER. ON TELEMETRY WITH HEARTRATE IN SINUS RHYTHM 70BPM.
--- NOTE | 2018-08-28 01:32 | NUR ---
RESTING IN BED. SOME CONFUSION. RESPIRATIONS UNLABORED. ENCOURAGED TO TRY TO SLEEP. NODS HER HEAD IN AGREEMENT.
--- NOTE | 2018-08-28 04:02 | NUR ---
RESTING IN BED WITH EYES CLOSED. RESPIRATIONS UNLABORED. NO DISTRESS NOTED.
--- NOTE | 2018-08-28 06:08 | NUR ---
AWAKE AND MORE ORIENTED NOW. STATES SHE JUST FEELS WEAK. BLOOD SUGAR 74. BOOSTE GIVEN PO. ALERT AND SKIN WARM AND DRY.
[2018-08-28 08:00] VITALS: BP 142/55
--- NOTE | 2018-08-28 08:00 | NUR ---
PATIENT IS ALERT. SLOW TO RESPOND TO QUESTIONS. SOME FORGETFULNESS NOTED. BED ALARM ON. CALL LIGHT WITHIN REACH. WILL CONTINUE WITH PLAN OF CARE.
[2018-08-28 08:20] LABS: ANION GAP 15.7 mmol/L (8-16); CALCIUM 8.9 mg/dL (8.5-10.1); CARBON DIOXIDE 22.1 mmol/L (21.0-32.0); CREATININE - SERUM 1.5 mg/dL (0.6-1.3); POTASSIUM - SERUM 3.8 mmol/L (3.5-5.1)
[2018-08-28 08:25] LABS: BASOPHILS 0.3 % (0-2); EOSINOPHILS 4.1 % (0-7); HEMATOCRIT 31.9 % (36.0-48.0); HEMOGLOBIN 10.2 g/dL (12-16); IMMATURE GRANULOCYTES 0.7 % (0-5); LYMPHOCYTES 12.9 % (15-50); MCH 32.6 pg (26.0-34.0); MCV 101.9 fL (80.0-100.0); MEAN PLATELET VOLUME 10.3 fL (7.4-10.4); MONOCYTES 13.9 % (2-11); NEUTROPHILS 68.1 % (40-80); PLATELET COUNT 201 10x3/uL (130-400); RBC 3.13 10x6/uL (4.00-5.40); RDW 16.1 % (11.5-14.5)
--- NOTE | 2018-08-28 08:45 | NUR ---
DR Marian BRITTON INTO SEE PATIENT. NEW ORDERS RECEIVED.
[2018-08-28 10:22] VITALS: Ht 157.5 cm; Wt 59.4 kg
--- NOTE | 2018-08-28 11:20 | NUR ---
PATIENT ADMITTED TO REHAB FROM ACUTE FLOOR. PATIENT DISCHARGE PLANS ARE FOR HER TO RETURN HOME WITH HER GRANDSON LAISHA. DR. AZEVEDO IS HER PCP. DME AT HOME IS A CANE AND A SHOWER CHAIR. WILL CONTINUE TO FOLLOW WITH PATIENT.
--- NOTE | 2018-08-28 12:20 | NUR ---
CL IN REACH.DENIES NEEDS.
--- NOTE | 2018-08-28 14:54 | NUR ---
PATIENT WORKING WITH PHYSICAL THERAPIST. MODERATE TO MAX ASST OF ONE.
[2018-08-28 19:00] VITALS: BP 108/57
--- NOTE | 2018-08-28 19:00 | NUR ---
PT ASLEEP NO NEEDS NOTED FLUIDS AND CALL LIGHT WITHIN REACH
--- NOTE | 2018-08-28 19:53 | RHP ---
PATIENT: CINDY ROMERO MEDICAL RECORD: [id number] ACCOUNT: [id number] LOCATION:[facility]1112 : 29 ADMISSION DATE: 08/27/18 REHABILITATION HISTORY AND PHYSICAL EXAMINATION POST ADMISSION PHYSICIAN EXAMINATION DATE OF ADMISSION: 08/27/2018 ADMITTING DIAGNOSIS: Disuse myopathy. HISTORY OF PRESENT ILLNESS: The patient is an elderly female who presents secondary to disuse myopathy. She is 88 years young. She has a past medical history of coronary artery disease, anemia, valvular heart disease, CVA, TIA, breast cancer, anxiety and diabetes. She was brought to the Emergency Room on 08/18/2018 with dyspnea, nausea, vomiting and weakness. She also had some chest discomfort. Her sat was 86% on room air. EKG shows some nonspecific changes and some ST depression in inferior leads. Her lactic acid was 3.1. Initial troponin was 0.22, but went up to 29.7. She was admitted for cardiac workup, found to have a non-Q-wave SD. She went to the manufacturing lab technician on 08/19/2018 and 08/22/2018 for stent placement in her left anterior descending through the patent saphenous vein graft that she had had in the past. She is currently on supplemental O2. She has some confusion. She is on telemetry. She has an elevated proBNP, new-onset congestive heart failure. She was started on diuretic therapy. She has proximal muscle weakness with difficulty rising from tib-xe-sivju, impaired mobility, high fall risk and self-care deficit, these are all barriers to her discharging home at this time. She lives at home with her adult grandson. She is moderately independent with her mobility using a single point cane, was independent with her ADLs and was moderately independent with bathing with use of a shower bench and hand held shower. She is currently setup for max assist for ADLs, moderate assist to total assist for mobility. She and her family would like for her to return home with her grandson at her prior level of functioning. COMORBIDITIES: In this patient include non-Q-wave SD, new-onset CHF, hypertension, diabetes, coronary artery disease, anemia, elevated troponin, generalized weakness, pneumonia, moderate right-sided pleural effusion and diabetes. PAST MEDICAL HISTORY: Significant for CVA in the past, TIAs, diabetes, coronary artery disease, anemia, cataracts, breast cancer, coronary artery disease, acid reflux, hernia, anxiety, weakness, menopause. PAST SURGICAL HISTORY: Includes coronary artery bypass grafting times 3 in 1996, coronary stents. She had a total aortic valve replacement, gallbladder surgery, right breast lumpectomy, appendectomy and a left lower quadrant hernia repair. ALLERGIES: SULFA, CODEINE AND TEQUIN. CURRENT MEDICATIONS: Include Amaryl 2 mg daily. She is on a glucose replacement protocol at this time. She is on Xanax 0.25 mg at bedtime p.r.n. She is on a low-resistant sliding scale with insulin, hydrochlorothiazide 25 mg daily, Cozaar 100 mg daily, ferrous sulfate 325 mg b.i.d., potassium gluconate 99 mg daily. She is on Actos 15 mg daily, Protonix 40 mg daily, furosemide 20 mg daily, Plavix 75 mg daily, aspirin chewable 81 mg daily, Pravachol 40 mg at HISTORY AND PHYSICAL [id number] CINDY ROMERO L bedtime, Zofran 4 mg every 6 hours p.r.n. nausea and vomiting, metoprolol 50 mg b.i.d., Vibramycin 100 mg b.i.d., Flexeril 10 mg every 8 hours p.r.n., Tylenol as needed, and polyethylene glycol 17 g in 8 ounces of water daily. HABITS: No current alcohol or tobacco use. FAMILY HISTORY: Noncontributory. SOCIAL HISTORY: The patient hopes to return back home once again with her grandson and hopefully get back to her prior level of functioning. REVIEW OF SYSTEMS: GENERAL: Does complain of weakness and fatigue. HEENT: Denies cold, cough, or congestion. CARDIOVASCULAR: Denies chest pain. PHYSICAL EXAMINATION: VITAL SIGNS: Stable, afebrile. GENERAL: Elderly female, in no acute distress, alert upon exam. HEENT: Normocephalic and atraumatic. Mucosa moist. NECK: Supple. No lymphadenopathy. LUNGS: Clear at this time. HEART: Regular rate and rhythm. ABDOMEN: Benign. EXTREMITIES: No clubbing, cyanosis or edema. NEUROLOGIC: She seems mainly intact. LABORATORY DATA: Her blood work is pending at this time. ASSESSMENT: This is an 88-year-old female patient admitted to rehab with a working diagnosis of disuse myopathy. The patient has potential to make improvement. We instituted the following multidisciplinary therapies including, but not limited to physical, occupational, respiratory, speech, nutritional services, prosthetics and orthotics. Given her complex medical condition and risks for more complications, rehabilitation services cannot be provided at a low level of care such as skilled nurse facility. PLAN: 1. Admit to [facility] rehab for intensive inpatient therapy to include the following disciplines: A. Physical therapy to improve gait, all transfer skills and bed mobility to a modified independent level. B. Occupational therapy to a modified independent level. C. Case management to assist with discharge planning and placement options. D. Nutrition to assist with nutritional needs. E. Rehabilitation nursing to assist in monitoring the patient's underlying medical conditions and to assist with any type of bowel or bladder management. 2. The patient's current medication and medical care will be continued. 3. The patient will be placed on standard fall precautions. 4. The estimated length of stay is approximately 7-10 days. 5. I will discuss this patient during care team staff meeting this afternoon. TRANSINT:[id number] Voice Confirmation ID: [id number] DOCUMENT ID: [id number] HISTORY AND PHYSICAL [id number] CINDY ROMERO notes whether there has been none or any medical/functional change since admission: - No change since prescreen. JARED attests patient continues to be appropriate for IRF: - Continues to be appropriate. KURT BRITTON MD at 1953 CC: [id number] DICTATION DATE: 08/28/18 0824 PRODUCTION ARTIST: 08/28/18 1114 ADM IN [facility] [address] [place] [address]
--- NOTE | 2018-08-28 23:00 | NUR ---
DC'D IV TO RFA TIP INTACT
--- NOTE | 2018-08-29 04:25 | NUR ---
PT ASLEEP NO NEEDS NOTED FLUIDS AND CALL LIGHT WITHIN REACH
--- NOTE | 2018-08-29 07:35 | NUR ---
PT RESTING QUIETLY. CL IN REACH. NO SIGNS OF DISTRESS OR PAIN. WOKE PT UP AND ASKED IF SHE WANTED BREAKFAST AND SHE STATED SHE WANTED TO SLEEP LONGER. RESP EVEN AND UNLABORED. BED IN LOW POSITION. SIDE RAILS X2. WILL CONTINUE TO MONITOR.
[2018-08-29 08:00] VITALS: BP 151/52
--- NOTE | 2018-08-29 10:24 | NUR ---
PT IN THERAPY. DENIES NEEDS
--- NOTE | 2018-08-29 14:04 | NUR ---
Nutrition Follow Up: Pt was in therapy at the time of RD visit. Interview deferred. Diet: Regular; Glucerna TID PO Intake: 26% meal avg BM: 08/29/18 Labs reviewed Meds noted including Lasix Rec continue current diet, supplement regimen. Rec consider an appetite stimulant. Will continue to honor food preferences. RD following.
--- NOTE | 2018-08-29 15:53 | NUR ---
PT LYING IN BED. CL IN REACH. PT DENIES NEEDS OR PAIN. BED IN LOW POSITION. SIDE RAILS X2. RESP EVEN AND UNLABORED. WCTM
--- NOTE | 2018-08-29 18:41 | NUR ---
PT LYING IN BED. CL IN REACH. PT DENIES NEEDS OR PAIN. WCTM
[2018-08-29 19:00] VITALS: BP 139/55
--- NOTE | 2018-08-29 19:54 | NUR ---
PT ASLEEP NO NEEDS NOTED FLUIDS AND CALL LIGHT WITHIN REACH
--- NOTE | 2018-08-30 00:59 | NUR ---
PATIENT EYES CLOSED. RESPIRATIONS 18 & EVEN. BED LOW. ALARM ON. CALL LIGHT WITHIN REACH. WILL CONTINUE TO MONITOR.
[2018-08-30 08:00] VITALS: BP 160/53
--- NOTE | 2018-08-30 08:00 | NUR ---
PATIENT IS ALERT/ORIENT. BED ALARM ON. CALL LIGHT WITHIN REACH. VOICES NO NEEDS. WILL CONTINUE WITH PLAN OF CARE
--- NOTE | 2018-08-30 10:14 | NUR ---
DR. Marian BRITTON INTO SEE PATIENT. NEW ORDERS RECEIVED
--- NOTE | 2018-08-30 17:33 | NUR ---
PATIENT HELPED UP TO WHEELCHAIR FORM BED. MODERATE ASST OF ONE.
[2018-08-30 20:00] VITALS: BP 147/53
--- NOTE | 2018-08-31 00:36 | NUR ---
PATIENT EYES CLOSED. RESPIRATIONS 18 & EVEN. PATIENT BED LOW. CALL LIGHT WITHIN REACH. WILL CONTINUE TO MONITOR.
--- NOTE | 2018-08-31 05:55 | NUR ---
PT ASLEEP NO NEEDS NOTED FLUIDS AND CALL LIGHT WITHIN REACH
--- NOTE | 2018-08-31 08:00 | NUR ---
PT RESTING IN BED WITH EYES OPEN CALL LIGHT IN REACH NO PROBLEMS WILL MONITER
[2018-08-31 08:07] VITALS: BP 154/46
--- NOTE | 2018-08-31 10:37 | NUR ---
SITTING UP IN WC.CL IN REACH.DENIES NEEDS.
--- NOTE | 2018-08-31 16:00 | NUR ---
PT COMPLAINING OF NAUSEA WILL GIVE PRN MED
--- NOTE | 2018-08-31 17:33 | NUR ---
AMARYL HELD PER PT REQUEST DO TO NAUSEA AND BS OF 97 WILL MONITER
[2018-08-31 19:00] VITALS: BP 110/70; BP 139/43
--- NOTE | 2018-08-31 19:22 | NUR ---
PATIENT IS RESTING IN HER BED. SHE DENIES ANY NEEDS. BED IS DOWN LOW WITH SIDE RAILS UP X2. CALL LIGHT IS IN REACH.
--- NOTE | 2018-08-31 19:34 | NUR ---
AWAKE RESTING IN BED. RESPIRATIONS UNLABORED. RIGHT HIP INCISION INTACT. LEFT HAND AND BILATERAL FEET NOTED CONTRACTED. FAMILY AT BEDSIDE. NO DISTRESS NOTED.
--- NOTE | 2018-08-31 20:42 | NUR ---
PATIENT IS RESTING IN HER BEDS. DENIES ANY NEEDS. VITAL SIGNS ARE STABLE. BED IS DOWN LOW WITH SIDE RAILS UP X2. CALL LIGHT IS IN REACH.
--- NOTE | 2018-09-01 00:12 | NUR ---
PATIENT IS SLEEPING. BED IS DOWN LOW WITH SIDE RAILS UP X2. BED ALARM ACTIVATED AND CALL LIGHT IN REACH.
--- NOTE | 2018-09-01 04:02 | NUR ---
PATIENT IS SLEEPING. BED IS DOWN LOW WITH SIDE RAILS UP X2. BED ALARM ACTIVATED AND CALL LIGHT IN REACH.
--- NOTE | 2018-09-01 11:49 | NUR ---
PATIENT AWAKE AND ALERT THIS MORNING. NO CONFUSION NOTED SO FAR THIS SHIFT. ATE 15% OF BREAKFAST. DENIES PAIN OR DISCOMFORT, BUT STATES SHE FEELS WEAK TODAY. SLEEPING ALOT THIS MORNING. WILL CONTINUE TO MONITOR.
[2018-09-01 11:55] VITALS: BP 132/51
--- NOTE | 2018-09-01 16:56 | NUR ---
SLEPT MOST OF THE AFTERNOON. NO COMPLAINTS OF PAIN OR DISCOMFORT. WILL CONTINUE TO MONITOR.
[2018-09-01 19:08] VITALS: BP 120/45
--- NOTE | 2018-09-01 19:44 | NUR ---
AWAKE AND ALERT SITTING IN WHEELCHAIR. RESPIRATIONS UNLABORED. NO C/O PAIN. NO DISTRESS NOTED.
--- NOTE | 2018-09-02 01:20 | NUR ---
RESTING IN BED WITH NO DISTRESS NOTED. RESPIRATIONS UNLABORED. NO DISTRESS NOTED.
[2018-09-02 07:47] LABS: CALCIUM 8.5 mg/dL (8.5-10.1); CARBON DIOXIDE 32.7 mmol/L (21.0-32.0); CREATININE - SERUM 1.3 mg/dL (0.6-1.3); POTASSIUM - SERUM 3.7 mmol/L (3.5-5.1)
[2018-09-02 07:53] LABS: BASOPHILS 0.2 % (0-2); EOSINOPHILS 4.4 % (0-7); HEMATOCRIT 30.7 % (36.0-48.0); HEMOGLOBIN 9.6 g/dL (12-16); IMMATURE GRANULOCYTES 0.5 % (0-5); LYMPHOCYTES 18.2 % (15-50); MCH 32.1 pg (26.0-34.0); MCHC 31.3 g/dL (31.0-37.0); MCV 102.7 fL (80.0-100.0); MEAN PLATELET VOLUME 10.3 fL (7.4-10.4); MONOCYTES 14.1 % (2-11); NEUTROPHILS 62.6 % (40-80); PLATELET COUNT 180 10x3/uL (130-400); RBC 2.99 10x6/uL (4.00-5.40); RDW 16.7 % (11.5-14.5); WBC 5.7 10x3/uL (4.8-10.8)
--- NOTE | 2018-09-02 10:19 | NUR ---
PATIENT VERY SLEEPY THIS MORNING. DID NOT FEEL LIKE EATING BREAKFAST BUT DID DRINK GLUCERNA DRINK. NO COMPLAINTS OF PAIN OR DISCOMFORT, BUT SAYS THAT SHE IS VERY TIRED TODAY. VITAL SIGNS STABLE. WILL CONTINUE TO MONITOR.
[2018-09-02 10:45] VITALS: BP 129/42
[2018-09-02 19:00] VITALS: BP 126/66
--- NOTE | 2018-09-02 19:35 | NUR ---
PT UP TO TOILET, PLEASANT, NO NEEDS NOTED AT THIS TIME, CALL LIGHT WITHIN REACH
--- NOTE | 2018-09-03 01:37 | NUR ---
PT ASLEEP NO NEEDS NOTED FLUIDS AND CALL LIGHT WITHIN REACH
--- NOTE | 2018-09-03 04:24 | NUR ---
PT ASLEEP NO NEEDS NOTED FLUIDS AND CALL LIGHT WITHIN REACH
[2018-09-03 07:33] VITALS: BP 118/37
--- NOTE | 2018-09-03 08:00 | NUR ---
LAYING IN BED. C/O LLE PAIN. DR BRITTON NOTIFIED. CALL LIGHT IN REACH
--- NOTE | 2018-09-03 13:56 | NUR ---
Nutrition Follow Up: Pt stated that her appetite is improving. She said that she loves Glucerna and is drinking daily. RD encouraged pt to continue increasing po intake as able. Diet: Regular Mech Soft with Chopped Meat; Glucerna TID PO Intake: 37% meal avg - po intake is improving BM: 09/02/18 Labs reviewed Meds noted including Lasix Rec continue current diet, supplement regimen. RD following.
[2018-09-03 19:22] VITALS: BP 151/39
--- NOTE | 2018-09-03 19:22 | NUR ---
GREETED PATIENT AND INTRODUCED MYSELF. PATIENTS VITAL SIGNS WHERE TAKEN AT THIS TIME. CALL LIGHT IN REACH. PATIENT DENIES ANY FURTHER NEEDS AT THIS TIME.
--- NOTE | 2018-09-03 21:21 | NUR ---
ASSISTED PATIENT TO BATHROOM USING WALKER. PATIENT BACK TO BED AND REPOSITIONED FOR COMFORT. CALL LIGHT IN REACH. BED IN LOWEST POSITION.
--- NOTE | 2018-09-03 21:49 | NUR ---
ADMINISTERED PRN ZOFRAN FOR PATIENT REPORTING NAUSEA AFTER TAKING EVENING MEDICATION. OFFERED PATIENT DIET SPRITE TO HELP SETTLE STOMACH AND SALTINE CRACKERS.
--- NOTE | 2018-09-04 00:02 | NUR ---
PATIENT ASLEEP WITH EYES CLOSED LAYING IN SUPINE POSITION. HOB AT 30 DEGREES. RESPIRATIONS EVEN. NO SIGNS OF DISTRESS. CALL LIGHT IN REACH. BED IN LOWEST POSITION.
--- NOTE | 2018-09-04 06:06 | NUR ---
PATIENTS SHOWER COMPLETED WITH NO PROBLEMS. PATIENT BACK TO BED AND REPOSITIONED FOR COMFORT. CALL LIGHT IN REACH.
[2018-09-04 06:55] LABS: ANION GAP 8.8 mmol/L (8-16); CARBON DIOXIDE 33.6 mmol/L (21.0-32.0); CREATININE - SERUM 1.2 mg/dL (0.6-1.3)
[2018-09-04 06:58] LABS: HEMATOCRIT 35.3 % (36.0-48.0); HEMOGLOBIN 11.3 g/dL (12-16); IMMATURE GRANULOCYTES 0.5 % (0-5); MCH 32.8 pg (26.0-34.0); MCV 102.3 fL (80.0-100.0); MEAN PLATELET VOLUME 10.5 fL (7.4-10.4); PLATELET COUNT 195 10x3/uL (130-400); RBC 3.45 10x6/uL (4.00-5.40); RDW 16.7 % (11.5-14.5); WBC 6.3 10x3/uL (4.8-10.8)
[2018-09-04 07:03] LABS: POTASSIUM - SERUM 4.4 mmol/L (3.5-5.1)
[2018-09-04 08:17] LABS: EOSINOPHILS 2 % (0-7); LYMPHOCYTES 12 % (15-50); MONOCYTES 8 % (2-11); NEUTROPHILS 77 % (40-80); PLATELET ESTIMATE NORMAL; ROULEAUX OCC
--- NOTE | 2018-09-04 15:20 | NUR ---
RESTING QUIETLY,CL IN REACH.
--- NOTE | 2018-09-04 15:55 | NUR ---
CARE TEAM MEETING: PATIENT PROGRESSING WELL IN THERAPY. TENATIVE DISCHARGE DATE IS 09/12/17 BACK TO HER HOME. WILL CONTINUE TO FOLLOW WITH PATIENT AND WILL ASSIST WITH NEEDS.
--- NOTE | 2018-09-04 18:36 | NUR ---
PT RESTING IN BED WITH EYES OPEN CALL LIGHT IN REACH WILL MONITER
--- NOTE | 2018-09-04 19:33 | NUR ---
AWAKE AND ALERT. RESTING IN BED WITH NO DISTRESS NOTED. NO NEEDS VOICED. CALL LIGHT IN REACH.
[2018-09-05 01:19] VITALS: BP 122/43
--- NOTE | 2018-09-05 02:00 | NUR ---
RESTING IN BED WITH EYES CLOSED. RESPIRATIONS UNLABORED. NO DISTRESS NOTED.
--- NOTE | 2018-09-05 04:44 | NUR ---
HAD SOME NAUSEA TONIGHT AND NOT SLEPT WELL. REPOSITIONED FOR COMFORT. WILL CONTINUE TO MONITOR.
[2018-09-05 08:00] VITALS: BP 137/35
--- NOTE | 2018-09-05 08:15 | NUR ---
PT RESTING IN BED WITH EYES OPEN CALL LIGHT IN REACH NO PROBLEMS WILL MONITER
--- NOTE | 2018-09-05 12:05 | NUR ---
CL IN REACH.
--- NOTE | 2018-09-05 18:44 | NUR ---
PT RESTING IN BED WITH EYES OPEN CALL LIGHT IN REACH WILL MONITER
--- NOTE | 2018-09-05 18:44 | NUR ---
PT RESTING IN BED WITH EYES OPEN CALL LIGHT IN REACH WILL MONITER
[2018-09-05 19:00] VITALS: BP 143/50
--- NOTE | 2018-09-05 20:20 | NUR ---
AWAKE AND ALERT RESTING IN BED. RESPRIATIONS UNLABORED. SITTING IN WHEELCHAIR. ASSISTED TO BED. NO DISTRESS NOTED. CALL LIGHT IN REACH.
--- NOTE | 2018-09-06 03:13 | NUR ---
RESTING IN BED WITH NO DISTRESS NOTED. RESPIRATIONS UNLABORED.
--- NOTE | 2018-09-06 06:34 | NUR ---
RESTING IN BED . ACCUCHECK DONE AND NOTED 75. ORANGE JUICE GIVEN PO. ALERT AND ORIENTED. SKIN WARM AND DRY.
[2018-09-06 07:20] LABS: BASOPHILS 0.2 % (0-2); EOSINOPHILS 3.3 % (0-7); HEMOGLOBIN 10.3 g/dL (12-16); IMMATURE GRANULOCYTES 0.3 % (0-5); LYMPHOCYTES 14.6 % (15-50); MCH 32.2 pg (26.0-34.0); MCHC 31.2 g/dL (31.0-37.0); MCV 103.1 fL (80.0-100.0); MEAN PLATELET VOLUME 10.9 fL (7.4-10.4); MONOCYTES 13.4 % (2-11); NEUTROPHILS 68.2 % (40-80); PLATELET COUNT 186 10x3/uL (130-400); RDW 16.6 % (11.5-14.5); WBC 6.1 10x3/uL (4.8-10.8)
[2018-09-06 07:26] LABS: ANION GAP 8.7 mmol/L (8-16); CALCIUM 8.6 mg/dL (8.5-10.1); CARBON DIOXIDE 33.4 mmol/L (21.0-32.0); CREATININE - SERUM 1.2 mg/dL (0.6-1.3); POTASSIUM - SERUM 4.1 mmol/L (3.5-5.1)
--- NOTE | 2018-09-06 07:29 | NUR ---
LAYING ON SIDE IN BED. DENIES INCREASED PAIN IN RLE. 2+ EDEMA NOTED FROM CALF TO TOES. CALL LIGHT IN REACH
[2018-09-06 07:30] VITALS: BP 122/40
--- NOTE | 2018-09-06 12:48 | NUR ---
SITTING UP EATING LUNCH IN ROOM. STILL C/O SLIGHT PAIN TO RLE. PEDAL PULSES PRESENT X2. RLE FROM [place]F TO TOES IS NOTED TO HAVE EDEMA 2+. CALL LIGHT IN REACH
--- NOTE | 2018-09-06 19:21 | NUR ---
PATIENT RECEIVED SITTING IN WHEELCHAIR AT BEDSIDE. PATIENT ASSESSMENT DONE. NO C/O PAIN OR DISTRESS. CALL LIGHT WITHIN REACH. WILL CONTINUE TO MONITOR.
[2018-09-06 20:04] VITALS: BP 129/48
--- NOTE | 2018-09-06 23:47 | NUR ---
PT ASLEEP NO NEEDS NOTED FLUIDS AND CALL LIGHT WITHIN REACH
--- NOTE | 2018-09-07 06:56 | NUR ---
RESTING QUIETLY IN BED. NO S/S DISTRESS OR NEEDS. CALL LIGHT IN REACH. BED IN LOWEST POSITION.
[2018-09-07 08:05] VITALS: BP 144/49
--- NOTE | 2018-09-07 12:30 | NUR ---
NAUSEA THIS AM. ZOFRAN GIVEN. UP TO BR WITH SBA. 3/3 TOILETING. DID NOT EAT BREAKFAST BECAUSE OF NAUSEA.
--- NOTE | 2018-09-07 18:25 | NUR ---
FAMILY AT BS. NO CHANGE IN ASSESSMENT. RESP EVEN AND UNLABORED. NO DISTRESS NOTED.
--- NOTE | 2018-09-07 22:42 | NUR ---
UP IN CHAIR TOILETED NO OTHER NEEDS NOTED FLUIDS AND CALL LIGHT WITHIN REACH
[2018-09-07 23:39] VITALS: BP 112/63
--- NOTE | 2018-09-08 | NUR ---
PT ASLEEP NO NEEDS NOTED FLUIDS AND CALL LIGHT WITHIN REACH
--- NOTE | 2018-09-08 08:03 | NUR ---
PATIENT AWAKENED FOR BREAKFAST AND ASSISTED TO SIT ON SIDE OF BED. NO COMPLAINTS AT THIS TIME. EATING BREAKFAST. WILL CONTINUE TO MONITOR.
[2018-09-08 10:59] VITALS: BP 139/38
--- NOTE | 2018-09-08 16:44 | NUR ---
PATIENT WAS TEARFUL AT NOON WITH DAUGHTER AT BEDSIDE. BLOOD SUGAR AT NOON WAS 209 BUT PATIENT ATE VERY LITTLE LUNCH SO INSULIN WAS HELD DUE TO PATIENT'S HISTORY OF BLOOD SUGARS DROPPING. BLOOD SUGAR AT 1630 WAS 119. PATIENT UP IN WHEELCHAIR AT THIS TIME WAITING FOR SUPPER. STATES SHE DOES NOT LIKE HOSPITAL FOOD BUT DAUGHTER IS GOING TO BRING HER SOME FOOD FROM HOME THIS EVENING. WILL CONTINUE TO MONITOR.
--- NOTE | 2018-09-08 19:30 | NUR ---
THE PATIENT WAS SITTING IN HER CHAIR WHEN STAFF ENTERED HER AREA. THE PATIENT WAS EDUCATED ON USE OF A CALL LIGHT AND DEMONSTRATED UNDERSTANDING VIA TEACHBACK METHOD. THE PATIENT APPEARS COMFORTABLE AND HAS NO QUESTIONS OR CONCERNS AT THIS TIME.
--- NOTE | 2018-09-09 01:19 | NUR ---
THE PATIENT APPEARS TO BE SLEEPING COMFORTABLY. BED REMAINS IN THE LOW POSITION WITH SIDERAILS X2 AND CALL LIGHT WITHIN REACH.
[2018-09-09 05:39] VITALS: BP 126/54
[2018-09-09 07:24] LABS: BASOPHILS 0.3 % (0-2); EOSINOPHILS 6.6 % (0-7); HEMATOCRIT 31.2 % (36.0-48.0); LYMPHOCYTES 32.5 % (15-50); MCH 32.9 pg (26.0-34.0); MCHC 32.1 g/dL (31.0-37.0); MCV 102.6 fL (80.0-100.0); MEAN PLATELET VOLUME 10.7 fL (7.4-10.4); MONOCYTES 12.8 % (2-11); NEUTROPHILS 47.8 % (40-80); PLATELET COUNT 175 10x3/uL (130-400); RBC 3.04 10x6/uL (4.00-5.40); RDW 16.2 % (11.5-14.5); WBC 3.9 10x3/uL (4.8-10.8)
[2018-09-09 07:36] LABS: ANION GAP 11.7 mmol/L (8-16); CALCIUM 8.7 mg/dL (8.5-10.1); CARBON DIOXIDE 30.4 mmol/L (21.0-32.0); CREATININE - SERUM 1.3 mg/dL (0.6-1.3); POTASSIUM - SERUM 4.1 mmol/L (3.5-5.1)
[2018-09-09 08:27] VITALS: BP 146/41
--- NOTE | 2018-09-09 09:42 | NUR ---
PATIENT AWAKE AND SITTING ON SIDE OF BED. ATE 100% OF BREAKFAST. NO COMPLAINTS AT THIS TIME. WILL CONTINUE TO MONITOR.
--- NOTE | 2018-09-09 16:32 | NUR ---
PATIENT HAD THERAPY THIS MORNING AND TOLERATED WELL. ATE 10% OF LUNCH. WAS VERY TEARFUL AFTER LUNCH AND DURING THERAPY STARTED TO CRY AND SAY SHE RACH SICK TO HER STOMACH. MEDIATED WITH HARMAN BRIGGS WITH GOOD RESULTS. FEELING BETTER AT THIS TIME. SITTING ON SIDE OF BED WATCHING TV. WILL CONTINUE TO MONITOR.
[2018-09-09 19:00] VITALS: BP 144/46
--- NOTE | 2018-09-09 20:02 | NUR ---
PT IN BED WATCHING TV NO NEEDS NOTED AT THIS TIME FLUIDS AND CALL LIGHT WITHIN REACH
--- NOTE | 2018-09-10 03:22 | NUR ---
PT ASLEEP NO NEEDS NOTED FLUIDS AND CALL LIGHT WITHIN REACH
--- NOTE | 2018-09-10 07:37 | NUR ---
EYES CLOSED.RESPS EASY.
[2018-09-10 08:00] VITALS: BP 125/40
--- NOTE | 2018-09-10 08:00 | NUR ---
PT RESTING IN BED WITH EYES OPEN CALL LIGHT IN REACH NO PROBLEMS WILL MONITER
--- NOTE | 2018-09-10 12:37 | NUR ---
Nutrition Follow Up: Pt stated that her appetite is fair. She said that she cannot eat very much at one time but is eating as much as she can. Pt stated that she loves Glucerna. RD encouraged pt to continue increasing po intake as able and to make staff aware of any food preferences. Diet: Regular; Glucerna TID PO Intake: 38% meal avg BM: 09/09/18 Labs reviewed - Glucose elevated Meds noted Rec continue current diet, supplement regimen. Will continue to honor food preferences. RD following.
--- NOTE | 2018-09-10 18:08 | NUR ---
PT RESTING IN BED WITH EYES OPEN CALL LIGHT IN REACH NO PROBLEM WILL MONITER
[2018-09-10 19:00] VITALS: BP 133/52
--- NOTE | 2018-09-10 19:10 | NUR ---
AWAKE AND ALERT. SITTING IN WHEELCHAIR. NO DISTRESS NOTED.
--- NOTE | 2018-09-11 00:22 | NUR ---
RESTNIG IN BED WITH NO DISTRESS NOTED. RESPIRATIONS UNLABORED.
--- NOTE | 2018-09-11 03:32 | NUR ---
RESTING IN BED WITH NO DISTRESS NOTED. CONDITION UNCHANGED.
--- NOTE | 2018-09-11 06:34 | NUR ---
RESTING IN BED WITH NO ACUTE DISTRESS NOTED. CONDITION UNCHANGED.
[2018-09-11 07:33] LABS: BASOPHILS 0.4 % (0-2); HEMATOCRIT 31.4 % (36.0-48.0); IMMATURE GRANULOCYTES 0.2 % (0-5); LYMPHOCYTES 15.4 % (15-50); MCH 32.1 pg (26.0-34.0); MCHC 31.8 g/dL (31.0-37.0); MEAN PLATELET VOLUME 10.5 fL (7.4-10.4); MONOCYTES 10.8 % (2-11); NEUTROPHILS 68.2 % (40-80); PLATELET COUNT 189 10x3/uL (130-400); RBC 3.12 10x6/uL (4.00-5.40)
[2018-09-11 07:46] LABS: ANION GAP 13.2 mmol/L (8-16); CALCIUM 9.1 mg/dL (8.5-10.1); CARBON DIOXIDE 28.7 mmol/L (21.0-32.0); POTASSIUM - SERUM 3.9 mmol/L (3.5-5.1)
[2018-09-11 07:58] LABS: MCV 100.6 fL (80.0-100.0); WBC 5.2 10x3/uL (4.8-10.8)
[2018-09-11 08:00] VITALS: BP 138/46
--- NOTE | 2018-09-11 08:00 | NUR ---
SHIFT ASSMT COMPLETED.
--- NOTE | 2018-09-11 12:00 | NUR ---
SITTING UP EATING LUNCH.
--- NOTE | 2018-09-11 16:00 | NUR ---
SITTING UP IN WC.CL IN REACH.
[2018-09-11 19:00] VITALS: BP 154/61
--- NOTE | 2018-09-11 19:30 | NUR ---
PATIENT IS SITTING UP IN HER WHEELCHAIR AT SIDE OF BED. SHE DENIES ANY NEEDS. CALL LIGHT IS IN REACH.
--- NOTE | 2018-09-11 22:04 | NUR ---
PATIENT IS SITTING UP IN HER WHEELCHAIR. SHE DENIES ANY NEEDS. HER BLOOD SUGAR IS 213. SHE REFUSED INSULIN COVERAGE. CALL LIGHT IS IN REACH. STATES SHE WILL CALL WHEN READY FOR BED.
--- NOTE | 2018-09-12 00:13 | NUR ---
PATIENT IS SLEEPING. BED IS DOWN LOW WITH SIDE RAILS UP X2, BED ALARM ACTIVATED AND CALL LIGHT IS IN REACH.
--- NOTE | 2018-09-12 04:11 | NUR ---
PATIENT IS SLEEPING. BED IS DOWN LOW WITH SIDE RAILS UP X2. BED ALARM ACTIVATED. CALL LIGHT IN REACH.
[2018-09-12 08:00] VITALS: BP 117/36
--- NOTE | 2018-09-12 08:00 | NUR ---
PT RESTING IN BED WITH EYES OPEN CALL LIGHT IN REACH NO PROBLEMS WILL MONITER
--- NOTE | 2018-09-12 08:00 | NUR ---
PT RESTING IN BED WITH EYES OPEN CALL LIGHT IN REACH NO PROBLEMS WILL MONITER
--- NOTE | 2018-09-12 09:12 | NUR ---
PATIENT DISHCARGING HOME WITH FAMILY. [facility] WILL PROVIDE THERAPY AT HOME. [facility] DELIVERED A ROLLING WALKER TO PATIENT.DR. AZEVEDO 09/18/18 @ 3:40. PATIENT CHOICE FORM FOR HOME HEALTH AND [facility] FORMS SIGNED AND FILED IN CHART. DISCHARGE INSTRUCTIONS WITH [facility] FAXED TO PCP AND TO HOME HEALTH.
--- NOTE | 2018-09-12 17:51 | NUR ---
PT DISCHARED TO HOME VIA WHEELCHAIR WITH DAUGHTER DISCHARGE SUMMARY AND MEDS REVIEWED WITH PT MEDS CALLED TO [facility]
== END 2018-09-12 17:56 | disposition home health service (06) | DRG 91 ==
LOC: D.REHAB 19:36
PROVIDERS: ADMIT Emergency Medicine
DX: G72.89 Other specified myopathies (principal); I21.4 Non-ST elevation (NSTEMI) myocardial infarction; J18.9 Pneumonia, unspecified organism; J90 Pleural effusion, not elsewhere classified; I11.0 Hypertensive heart disease with heart failure; I50.9 Heart failure, unspecified; I25.10 Atherosclerotic heart disease of native coronary artery without angina pectoris; D64.9 Anemia, unspecified; R53.1 Weakness; E11.65 Type 2 diabetes mellitus with hyperglycemia; D50.9 Iron deficiency anemia, unspecified

== ENCOUNTER 2018-09-13 20:41 | Inpatient (IN) | payer MEDICARE, BC ==
[~2018-09-13] VITALS: Ht 157.5 cm; Wt 49.9 kg
--- NOTE | ~2018-09-13 | CN ---
PATIENT NAME:CINDY LAWSON MEDICAL RECORD: [id number] : 28 LOCATION:[id number] ADMIT DATE: 09/13/18 ACCOUNT: [id number] CONSULTING PHYSICIAN: MANOLO LEAHY MD REFERRING PHYSICIAN: GIANNA AZEVEDO MD DATE OF CONSULTATION: 09/14/2018 CONSULT REQUESTING PHYSICIAN: Everett Chi DO REASON FOR CONSULTATION: Bilateral pneumonia, bilateral pleural effusion. HISTORY OF PRESENT ILLNESS: Ms. Lawson is an 88-year-old female who has a history of aortic valve replacement, was recently hospitalized in the rehab for 3 weeks and the patient went home, within 2 days the patient came back with worsening shortness of breath, orthopnea, and PND. Denies any fever or chills. On evaluation, she was found out to have bilateral infiltrates. REVIEW OF SYSTEMS: As in the history of present illness. PAST MEDICAL HISTORY: 1. Congestive heart failure. 2. Aortic valve stenosis, status post replacement. 3. Gastroesophageal reflux disease. 4. History of right breast, status post mastectomy. 5. Anxiety. PAST SURGICAL HISTORY: 1. She has aortic valve replacement. 2. She had a CABG in the past. 3. Cardiac catheterization and stent placement. 4. Cholecystectomy. ALLERGIES: SHE IS ALLERGIC TO SULFA, CODEINE, AND GATIFLOXACIN. MEDICATIONS: CineFlow reviewed. PERSONAL AND SOCIAL HISTORY: The patient has never smoked, but her is a heavy smoker. FAMILY HISTORY: Noncontributory. PHYSICAL EXAMINATION: GENERAL: Now, the patient is lying comfortably. She is not in acute distress. VITAL SIGNS: The blood pressure is 129/57, pulse is 58, respiration is 18, temperature is 98.2, and SpO2 is 94% on 2 liters nasal cannula. HEENT: Conjunctivae are pink. Sclerae are not icteric. NECK: Supple, no JVD. CHEST: The chest excursion is minimal but has bilateral crackles. No wheezing. HEART: Rhythm regular, normal sound, no murmur. ABDOMEN: Soft, bowel sounds present. No hepatosplenomegaly. RECTAL: Deferred. EXTREMITIES: No cyanosis, no clubbing, no pedal edema. CENTRAL NERVOUS SYSTEM: The patient is awake and alert. There are no obvious cranial nerve abnormalities. The gait was not tested. CONSULT REPORT [id number] LAWSON,CINDY L CHEST RADIOGRAPH: There are bilateral pleural effusions, bilateral lower lobe infiltrate. OTHER LABORATORY DATA: CBC: WBC is 5.6, hemoglobin 9.6, hematocrit 30.4, and the platelet count is 179. Chemistry: Sodium 140, potassium 4.1, BUN is 30, creatinine is 1. Liver enzymes are within normal range. The proBNP is 68,692. Albumin is 2.7. IMPRESSION: 1. Acute hypoxic respiratory failure. 2. Bilateral lower lobe pneumonia. 3. Bilateral pleural effusion, most likely parapneumonic, possible secondary to congestive heart failure. 4. Congestive heart failure with elevated proBNP. 5. Coronary artery disease, status post aortic valve replacement. RECOMMENDATIONS: 1. Discontinue Zithromax, start her on doxycycline and vancomycin. Continue Zosyn to cover for hospital-acquired pneumonia. 2. Start her on Lasix. 3. Check the CT scan of the chest. 4. Supplemental oxygen. 5. DVT prophylaxis. 6. Check the cardiac echo. Dr. Chi, thank you for involving me in the care of Ms. Lawson. TRANSINT:[id number] Voice Confirmation ID: [id number] DOCUMENT ID: [id number] MANOLO LEAHY MD CC: [id number] DICTATION DATE: 09/14/18 1637 PRECISION HONING MACHINE OPERATOR: 09/15/18 0305 ADM IN [facility] [address] [place] [address]
[2018-09-13 21:10] LABS: BASOPHILS 0.1 % (0-2); EOSINOPHILS 0.3 % (0-7); HEMATOCRIT 33.2 % (36.0-48.0); HEMOGLOBIN 10.6 g/dL (12-16); IMMATURE GRANULOCYTES 0.1 % (0-5); LYMPHOCYTES 5.1 % (15-50); MCHC 31.9 g/dL (31.0-37.0); MCV 103.4 fL (80.0-100.0); MEAN PLATELET VOLUME 10.5 fL (7.4-10.4); MONOCYTES 9.9 % (2-11); NEUTROPHILS 84.5 % (40-80); PLATELET COUNT 202 10x3/uL (130-400); RBC 3.21 10x6/uL (4.00-5.40); RDW 15.8 % (11.5-14.5); WBC 9.2 10x3/uL (4.8-10.8)
[2018-09-13 21:22] LABS: APTT 34.1 SECONDS (22.8-39.4); INR 1.17 (0.85-1.17); PROTIME 14.4 SECONDS (11.6-15.0)
[2018-09-13 21:29] LABS: ALBUMIN 3.4 g/dL (3.4-5.0); ALKALINE PHOSPHATASE 81 U/L (46-116); ALT (SGPT) 28 U/L (10-68); BILIRUBIN - TOTAL 1.08 mg/dL (0.2-1.3); CALC OSMOLALITY 288 mosm/kg (275-300); CALCIUM 8.9 mg/dL (8.5-10.1); CARBON DIOXIDE 28.8 mmol/L (21.0-32.0); CHLORIDE - SERUM 100 mmol/L (98-107); GLUCOSE 169 mg/dL (74-106); POTASSIUM - SERUM 4.1 mmol/L (3.5-5.1); PROTEIN - SERUM 7.3 g/dL (6.4-8.2); SODIUM 140 mmol/L (136-145); UREA NITROGEN 30 mg/dL (7-18); eGFR NON AFRICAN AMERICAN 55 mL/min (90-120)
[2018-09-13 21:40] LABS: CKMB 1.8 U/L (0.0-3.6); CREATINE KINASE 67 UL (21-215); PRO BNP 68692 pg/mL (0-450); TROPONIN-I 0.032 ng/mL (0.000-0.060)
[2018-09-13 22:30] VITALS: BP 110/74
[2018-09-14] VITALS (7 sets, daily range): BP systolic 116–140; BP diastolic 43–77; BMI 20.1
--- NOTE | 2018-09-14 00:30 | NUR ---
PAGED DR KEITH TO CHECK ON DOSING OF GENTAMYCIN IVPB 250 MG PER DIRECTOR OF HOTEL OPERATIONS....UNABLE TO GET IN THE MG ORDERED WITHOUT BEING IN TOO MUCH FLUID...PT WITH CHF.
--- NOTE | 2018-09-14 02:41 | NUR ---
NO CALL FROM MD CONCERNING GENT DOSING. WILL WAIT FOR PHARMACY IN AM TO MIX. CHANGED TIME FOR ONE TIME DOSE TO 0715
[2018-09-14 11:46] LABS: BASOPHILS 0.2 % (0-2); HEMATOCRIT 30.4 % (36.0-48.0); HEMOGLOBIN 9.6 g/dL (12-16); IMMATURE GRANULOCYTES 0.4 % (0-5); LYMPHOCYTES 9.2 % (15-50); MCH 32.7 pg (26.0-34.0); MCHC 31.6 g/dL (31.0-37.0); MCV 103.4 fL (80.0-100.0); MEAN PLATELET VOLUME 10.1 fL (7.4-10.4); MONOCYTES 7.4 % (2-11); NEUTROPHILS 79.8 % (40-80); PLATELET COUNT 179 10x3/uL (130-400); RBC 2.94 10x6/uL (4.00-5.40); RDW 16.1 % (11.5-14.5)
[2018-09-14 11:47] LABS: WBC 5.6 10x3/uL (4.8-10.8)
[2018-09-14 12:03] LABS: ALBUMIN 2.7 g/dL (3.4-5.0); BILIRUBIN - TOTAL 1.16 mg/dL (0.2-1.3); CALCIUM 8.7 mg/dL (8.5-10.1); CARBON DIOXIDE 27.8 mmol/L (21.0-32.0); POTASSIUM - SERUM 3.8 mmol/L (3.5-5.1); PROTEIN - SERUM 6.7 g/dL (6.4-8.2)
[2018-09-14 12:04] LABS: CREATININE - SERUM 1.3 mg/dL (0.6-1.3)
--- NOTE | 2018-09-14 19:00 | NUR ---
REPORT RECEIVED AND CARE OF PT ASSUMED. PT LYING IN LOW HICKMAN'S POSITION WITH EYES CLOSED. IV IN LEFT FA PATENT WITH NS INFUSING AT KVO. TELEMETRY IN PLACE AND READING SR AT THIS ASSESSMENT. O2 IN USE VIA NC AT 2L. WILL MONITOR FOR NEEDS.
--- NOTE | 2018-09-14 21:22 | NUR ---
HS MEDICATIONS GIVEN. WILL CONTINUE TO MONITOR FOR NEEDS.
--- NOTE | 2018-09-14 21:30 | NUR ---
CHANGED GOWN AND DRAW SHEET. ASSISTED PT TO USE BEDPAN TO VOID. APPLIED NUSTATIN POWDER TO PERINEAL AREA AND INGUINAL AREA FOR REDNESS. APPLIED JENNIFER'S TO COCCYX FOR REDNESS. POSITIONED ONTO LEFT SIDE PER TURN SCHEDULE. SIDE RAILS UP X2 AND BED ALARM IN USE FOR SAFETY.
--- NOTE | 2018-09-15 00:10 | NUR ---
CALLED MD POST ADOPTION COORDINATOR PER PT REQUEST FOR SLEEP AIDE. RECEIVED ORDERS FOR XANAX 0.25 MG PO QHS AND FLEXERIL 10 MG PO Q8HR PRN, FROM HOME MEDICATION LIST.
[2018-09-15 00:40] VITALS: BP 117/42
[2018-09-15 05:01] VITALS: BP 121/68
[2018-09-15 05:41] LABS: BASOPHILS 0.2 % (0-2); EOSINOPHILS 6.9 % (0-7); HEMATOCRIT 25.8 % (36.0-48.0); HEMOGLOBIN 8.1 g/dL (12-16); IMMATURE GRANULOCYTES 0.2 % (0-5); LYMPHOCYTES 17.2 % (15-50); MCH 32.1 pg (26.0-34.0); MCHC 31.4 g/dL (31.0-37.0); MCV 102.4 fL (80.0-100.0); MEAN PLATELET VOLUME 10.3 fL (7.4-10.4); MONOCYTES 12.7 % (2-11); NEUTROPHILS 62.8 % (40-80); PLATELET COUNT 165 10x3/uL (130-400); RBC 2.52 10x6/uL (4.00-5.40); RDW 15.9 % (11.5-14.5); WBC 4.6 10x3/uL (4.8-10.8)
[2018-09-15 06:26] LABS: ALBUMIN 2.4 g/dL (3.4-5.0); ANION GAP 11.4 mmol/L (8-16); BILIRUBIN - TOTAL 0.9 mg/dL (0.2-1.3); CALCIUM 8.2 mg/dL (8.5-10.1); CREATININE - SERUM 1.3 mg/dL (0.6-1.3); POTASSIUM - SERUM 3.4 mmol/L (3.5-5.1); PROTEIN - SERUM 5.8 g/dL (6.4-8.2); VANCOMYCIN - RANDOM 8.2 ug/mL (10.0-20.0)
[2018-09-15 08:48] VITALS: BP 133/53
[2018-09-15 12:00] VITALS: BP 131/53
[2018-09-15 16:00] VITALS: BP 146/53
--- NOTE | 2018-09-15 18:55 | NUR ---
PATIENT IN BED WITH IV INTACT. NO COMPLAINTS OR SIGNS OF DISTRESS. CALL LIGHT WITHIN REACH.
--- NOTE | 2018-09-15 18:55 | NUR ---
PATIENT IN BED WITH IV INTACT. NO COMPLAINTS OR SIGNS OF DISTRESS. EYES CLOSED RESTING QUIETLY. CALL LIGHT WITHIN REACH.
[2018-09-15 19:00] VITALS: BP 110/53
--- NOTE | 2018-09-15 19:00 | NUR ---
REPORT RECEIVED AND CARE OF PT ASSUMED. PT LYING IN LOW HICKMAN'S POSITION WITH EYES CLOSED. IV IN LEFT FA PATENT WITH NS INFUSING AT KVO. TELEMETRY IN PLACE AND READING SR AT THIS ASSESSMENT. WILL MONITOR FOR NEEDS.
--- NOTE | 2018-09-15 21:36 | NUR ---
HS MEDICATIONS GIVEN. WILL CONTINUE TO MONITOR FOR NEEDS.
[2018-09-16] VITALS: BP 105/46
[2018-09-16 03:00] VITALS: BP 135/54
[2018-09-16 06:25] LABS: BASOPHILS 0.2 % (0-2); EOSINOPHILS 7.3 % (0-7); HEMATOCRIT 28.2 % (36.0-48.0); HEMOGLOBIN 8.7 g/dL (12-16); IMMATURE GRANULOCYTES 0.2 % (0-5); LYMPHOCYTES 13.1 % (15-50); MCH 32.2 pg (26.0-34.0); MCHC 30.9 g/dL (31.0-37.0); MEAN PLATELET VOLUME 10.4 fL (7.4-10.4); MONOCYTES 15.2 % (2-11); RDW 16.1 % (11.5-14.5); WBC 4.8 10x3/uL (4.8-10.8)
[2018-09-16 06:39] LABS: MCV 104.4 fL (80.0-100.0); PLATELET COUNT 206 10x3/uL (130-400)
[2018-09-16 07:11] LABS: ALBUMIN 2.5 g/dL (3.4-5.0); ANION GAP 10.1 mmol/L (8-16); BILIRUBIN - TOTAL 0.74 mg/dL (0.2-1.3); CALCIUM 8.6 mg/dL (8.5-10.1); CARBON DIOXIDE 32.5 mmol/L (21.0-32.0); CREATININE - SERUM 1.2 mg/dL (0.6-1.3); POTASSIUM - SERUM 3.6 mmol/L (3.5-5.1); PROTEIN - SERUM 6.4 g/dL (6.4-8.2); VANCOMYCIN - RANDOM 13.1 ug/mL (10.0-20.0)
[2018-09-16 09:00] VITALS: BP 145/51
[2018-09-16 13:34] VITALS: BP 125/47
[2018-09-16 16:00] VITALS: BP 131/49
--- NOTE | 2018-09-16 18:27 | NUR ---
OT NOTE: PT COMPLETED BED MOB WITH MOD A. PT COMPLETED BUE AROM AXS. PT COMPLETED SELF GROOMING TASK WITH SBA. THANK YOU, SIRISHA HARRIS
--- NOTE | 2018-09-16 20:00 | NUR ---
ASSESSMENT PER FLOWSHEET. IV PATENT LEFT ARM OF NS AT KVO. O2 AT 3L/M PER NC. RESTING QUIETLY SR UP X2 CALL LIGHT WITHIN REACH. DENIES NEEDS.
[2018-09-16 21:13] VITALS: BP 130/48
--- NOTE | 2018-09-16 21:15 | NUR ---
MEDS GIVEN PER MAR.ETIG=497. NO COVERAGE NEEDED.
--- NOTE | 2018-09-17 | NUR ---
EYES CLOSED RESPIRATIONS WITH EASE AND UNLABORED.
[2018-09-17 01:32] VITALS: BP 115/37
--- NOTE | 2018-09-17 04:30 | NUR ---
MEDS GIVEN PER MAR.
[2018-09-17 05:23] VITALS: BP 133/48
[2018-09-17 06:12] LABS: BASOPHILS 0.6 % (0-2); EOSINOPHILS 8.6 % (0-7); HEMATOCRIT 28.5 % (36.0-48.0); IMMATURE GRANULOCYTES 0.3 % (0-5); LYMPHOCYTES 22.2 % (15-50); MCH 32.5 pg (26.0-34.0); MCHC 31.6 g/dL (31.0-37.0); MCV 102.9 fL (80.0-100.0); MEAN PLATELET VOLUME 10.1 fL (7.4-10.4); MONOCYTES 12.7 % (2-11); NEUTROPHILS 55.6 % (40-80); PLATELET COUNT 211 10x3/uL (130-400); RBC 2.77 10x6/uL (4.00-5.40); RDW 15.5 % (11.5-14.5); WBC 3.6 10x3/uL (4.8-10.8)
[2018-09-17 06:34] LABS: ALBUMIN 2.4 g/dL (3.4-5.0); ANION GAP 11.3 mmol/L (8-16); BILIRUBIN - TOTAL 0.85 mg/dL (0.2-1.3); CALCIUM 8.7 mg/dL (8.5-10.1); CREATININE - SERUM 1.2 mg/dL (0.6-1.3); POTASSIUM - SERUM 3.3 mmol/L (3.5-5.1); PROTEIN - SERUM 6.3 g/dL (6.4-8.2); VANCOMYCIN - RANDOM 16.8 ug/mL (10.0-20.0)
[2018-09-17 08:28] VITALS: BP 132/46
[2018-09-17 11:53] VITALS: BP 124/68
[2018-09-17 13:24] VITALS: Ht 157.5 cm; Wt 49.9 kg
--- NOTE | 2018-09-17 15:03 | MORECARE ---
CASE MANAGEMENT DISCHARGE SUMMARY PATIENT: CINDY ROMERO UNIT: [id number] ADM DATE: 09/13/18 AGE: 88 : 29 SEX: F ROOM/BED: D.2223 AUTHOR: CANDICE BARROS PHYSICIAN: REFERRING PHYSICIAN: GIANNA AZEVEDO MD DATE OF SERVICE: 09/17/18 Discharge Plan Patient Name: CINDY ROMERO Facility: [facility]:[place] : 1930 Planned Disposition: Assisted Living Anticipated Discharge Date: Discharge Date: Expected LOS: Initial Reviewer: [email or web address] Initial Review Date: 09/17/2018 Generated: 09/17/18 4:03 pm Comments DCP- Discharge Planning Updated by [email or web address]: Claire Mao on 09/17/18 2:[address] Patient Name: CINDY ROMERO Admission Status: ER Accout number: [id number] Admission Date: 09-13-2018 : 1930 Admission Diagnosis:SHORTNESS OF BREATH Attending: GIANNA AZEVEDO Current LOS: 4 Anticipated DC Date: Planned Disposition: Assisted Living Primary Insurance: MEDICARE A & B Discharge Planning Comments: CM met with patient to discuss discharge planning, she is alone in the room. She lives with her adult grandson in a one story home. States her daughter lives close by. States she is unsure of discharge plan, she has been discussing with her daughter. States she would like to go home with home health if able. I discussed the availability of SNF and DME. States she does not need any more DME. States she would like me to talk with Bruna about SNF. I called Bruna and she states they are looking at [facility]. States her is going to visit with her PCP tomorrow and look at options. I discussed possible SNF if she needed to have rehab prior to going to the assisted living and provided her my number to call me with questions. CM will continue to follow and assist with discharge planning/needs. Advanced Practice Registered Nurse: Claire Mao DCPIA - Discharge Planning Initial Assessment Updated by [email or web address]: Claire Mao on 09/17/18 2:57 pm * Is the patient Alert and Oriented? Yes * How many steps to enter\exit or inside your home? 1/0 * PCP Dr. Azevedo * Pharmacy [facility] ([facility] in [place] * Preadmission Environment Home with Family * ADLs Partial Dependent * Partial ADLs (Assistance needed) Ambulation * Equipment Cane Other Shower Chair * Other Equipment Walk in shower with shower chair and hand held shower head * List name and contact numbers for known caregivers / representatives who currently or will assist patient after discharge: Bruna Reyes [facility] - [phone] * Verbal permission to speak to the caregivers and representatives has been obtained from the patient. Yes * Community resources currently utilized Home Health * Please name any agencies selected above. [facility] * Additional services required to return to the preadmission environment? Yes * Can the patient safely return to the preadmission environment? No * Has this patient been hospitalized within the prior 30 days at any hospital? Yes Patient Name: CINDY ROMERO Page 42002 at 1503 All edits/amendments must be made on the electronic document DICTATION DATE: 09/17/18 1503 TOOL MAKER BENCH: NINI 09/17/18 1503 RPT#: [id number] DC DATE: STATUS: ADM IN [facility] [address] [place] [address] END OF REPORT
--- NOTE | 2018-09-17 15:43 | NUR ---
OT NOTE: BED MOB TRAINING WITH CGA; TRANSFERS WITH MIN/CGA; LE DRESSING WITH MIN ASSIST. SIMPLE GROOMING WITH SET UP. STEVE JAQUEZ,OTR/L
--- NOTE | 2018-09-17 18:37 | NUR ---
CONTINUE DIRECTOR OF PEDIATRIC REHABILITATION PLAN OF CARE.
[2018-09-17 20:48] VITALS: BP 117/34
--- NOTE | 2018-09-17 22:07 | NUR ---
OT NOTE: PT COMPLETED BED MOB WITH SPV/SBA. PT COMPLETED EOB SITTING WITH SBA. PT COMPLETED BUE AROM AXS. THANK YOU, SIRISHA HARRIS
[2018-09-18 01:08] VITALS: BP 119/42
[2018-09-18 04:28] LABS: BASOPHILS 0.2 % (0-2); EOSINOPHILS 5.5 % (0-7); HEMOGLOBIN 9.6 g/dL (12-16); IMMATURE GRANULOCYTES 0.4 % (0-5); LYMPHOCYTES 13.9 % (15-50); MCH 32.2 pg (26.0-34.0); MCV 100.7 fL (80.0-100.0); MEAN PLATELET VOLUME 10.3 fL (7.4-10.4); MONOCYTES 15.8 % (2-11); NEUTROPHILS 64.2 % (40-80); RBC 2.98 10x6/uL (4.00-5.40); RDW 15.1 % (11.5-14.5); WBC 5.3 10x3/uL (4.8-10.8)
[2018-09-18 04:29] LABS: PLATELET COUNT 265 10x3/uL (130-400)
[2018-09-18 04:37] LABS: ALBUMIN 2.5 g/dL (3.4-5.0); ANION GAP 9.1 mmol/L (8-16); BILIRUBIN - TOTAL 0.65 mg/dL (0.2-1.3); CALCIUM 8.6 mg/dL (8.5-10.1); CARBON DIOXIDE 31.1 mmol/L (21.0-32.0); CREATININE - SERUM 1.2 mg/dL (0.6-1.3); POTASSIUM - SERUM 3.2 mmol/L (3.5-5.1); PROTEIN - SERUM 6.5 g/dL (6.4-8.2); VANCOMYCIN - RANDOM 18.1 ug/mL (10.0-20.0)
--- NOTE | 2018-09-18 07:45 | NUR ---
PATIENT RESTING WITH NO NEEDS VOICED. RESPIRATIONS CLEAR AND NONLABORED. CL IN REACH
[2018-09-18 08:39] VITALS: BP 164/51
[2018-09-18 13:28] VITALS: BP 160/49
--- NOTE | 2018-09-18 15:27 | NUR ---
OT NOTE: BED MOB WITH SPV; SIT TO STAND WITH CGA; IN ROOM AMBULATION WITH USE OF RW AND IV AND CGA. UE DRESSING WITH SET UP; DONNING AND DOFFING SOCKS WITH MIN ASSIST; GROOMING TASKS WITH SET UP. REPORTED FEELING NAUSEATED EARLIER BUT BETTER NOW. STEVE JAQUEZ, OTR/L
[2018-09-18 16:49] VITALS: BP 132/40
--- NOTE | 2018-09-18 18:12 | NUR ---
OT NOTE: PT COMPLETED BED MOB WITH SBA. PT COMPLETED BUE AROM EXS. PT COMPLETED GROOMING WITH SET UP. THANK YOU, SIRISHA HARRIS
--- NOTE | 2018-09-18 20:00 | NUR ---
ASSESSMENT PER FLOWSHEET. IV PATENT LEFT HAND OF NS AT 50CC'S/HR. O2 AT 2L/M PER NC NO DISTRESS SR UP X2 CALL LIGHT WITHIN REACH.
[2018-09-18 21:34] VITALS: BP 120/41
--- NOTE | 2018-09-18 22:00 | NUR ---
MEDS GIVEN PER MAR. FSBS=82 NO COVERAGE NEEDED.
--- NOTE | 2018-09-19 03:12 | NUR ---
C/O LOWER LEG PAIN. TYLENOL 650MG PO GIVEN FOR PAIN CONTROL.
[2018-09-19 04:58] VITALS: BP 112/38
--- NOTE | 2018-09-19 05:04 | NUR ---
RESTING QUIETLY DENIES NEEDS.
[2018-09-19 06:19] LABS: BASOPHILS 0.5 % (0-2); EOSINOPHILS 9.7 % (0-7); HEMATOCRIT 28.4 % (36.0-48.0); HEMOGLOBIN 9.1 g/dL (12-16); IMMATURE GRANULOCYTES 0.3 % (0-5); LYMPHOCYTES 24.3 % (15-50); MCH 32.5 pg (26.0-34.0); MCV 101.4 fL (80.0-100.0); MEAN PLATELET VOLUME 10.6 fL (7.4-10.4); MONOCYTES 13.8 % (2-11); NEUTROPHILS 51.4 % (40-80); PLATELET COUNT 252 10x3/uL (130-400); RDW 15.5 % (11.5-14.5)
[2018-09-19 06:25] LABS: WBC 3.9 10x3/uL (4.8-10.8)
[2018-09-19 06:32] LABS: ALBUMIN 2.5 g/dL (3.4-5.0); ANION GAP 14.1 mmol/L (8-16); BILIRUBIN - TOTAL 0.63 mg/dL (0.2-1.3); CALCIUM 8.5 mg/dL (8.5-10.1); CARBON DIOXIDE 26.1 mmol/L (21.0-32.0); CREATININE - SERUM 1.3 mg/dL (0.6-1.3); PROTEIN - SERUM 6.3 g/dL (6.4-8.2); VANCOMYCIN - RANDOM 21.1 ug/mL (10.0-20.0)
[2018-09-19 06:33] LABS: POTASSIUM - SERUM 4.2 mmol/L (3.5-5.1)
[2018-09-19 08:50] VITALS: BP 131/49
[2018-09-19 12:27] VITALS: BP 150/54
--- NOTE | 2018-09-19 13:08 | NUR ---
NUTRITION F/U PT WITH ~25% INTAKE BREAKFAST PLUS GLUCERNA SHAKE. REFUSED LUNCH TODAY, DID KEEP GLUCERNA SHAKE AT BEDSIDE. RD FOLLOWING
--- NOTE | 2018-09-19 15:35 | NUR ---
OT NOTE: PT PERFORMED BED MOB WITH SBA; STATIC SITTING ON EDGE OF BED X 5 MIN WITHOUT SUPPORT; IN ROOM MOBILITY WITH USE OF RW, IV, AND MIN ASSIST. SET UP WITH FEEDING AND GROOMING WHILE SEATED..CGA AND USE OF WALKER IF PERFORMING SINK HYGIENE.
--- NOTE | 2018-09-19 16:06 | MORECARE ---
CASE MANAGEMENT DISCHARGE SUMMARY PATIENT: CINDY ROMERO UNIT: [id number] ADM DATE: 09/13/18 AGE: 88 : 29 SEX: F ROOM/BED: D.2223 AUTHOR: CANDICE BARROS PHYSICIAN: REFERRING PHYSICIAN: GIANNA AZEVEDO MD DATE OF SERVICE: 09/19/18 Discharge Plan Patient Name: CINDY ROMERO Facility: [facility]:[place] : 1930 Planned Disposition: Assisted Living Anticipated Discharge Date: Discharge Date: Expected LOS: Initial Reviewer: [email or web address] Initial Review Date: 09/17/2018 Generated: 09/19/18 5:06 pm Comments DCP- Discharge Planning Updated by [email or web address]: Claire Moa on 09/17/18 2:[address] Patient Name: CINDY ROMERO Admission Status: ER Accout number: [id number] Admission Date: 09-13-2018 : 1930 Admission Diagnosis:SHORTNESS OF BREATH Attending: GIANNA AZEVEDO Current LOS: 4 Anticipated DC Date: Planned Disposition: Assisted Living Primary Insurance: MEDICARE A & B Discharge Planning Comments: CM met with patient to discuss discharge planning, she is alone in the room. She lives with her adult grandson in a one story home. States her daughter lives close by. States she is unsure of discharge plan, she has been discussing with her daughter. States she would like to go home with home health if able. I discussed the availability of SNF and DME. States she does not need any more DME. States she would like me to talk with Bruna about SNF. I called Bruna and she states they are looking at [facility]. States her is going to visit with her PCP tomorrow and look at options. I discussed possible SNF if she needed to have rehab prior to going to the assisted living and provided her my number to call me with questions. CM will continue to follow and assist with discharge planning/needs. B2B Sales Executive: Claire Mao DCPIA - Discharge Planning Initial Assessment Updated by [email or web address]: Claire Mao on 09/17/18 2:57 pm * Is the patient Alert and Oriented? Yes * How many steps to enter\exit or inside your home? 1/0 * PCP Dr. Azevedo * Pharmacy [facility] ([facility]) in [place] * Preadmission Environment Home with Family * ADLs Partial Dependent * Partial ADLs (Assistance needed) Ambulation * Equipment Cane Other Shower Chair * Other Equipment Walk in shower with shower chair and hand held shower head * List name and contact numbers for known caregivers / representatives who currently or will assist patient after discharge: Bruna Reyes [facility] - [phone] * Verbal permission to speak to the caregivers and representatives has been obtained from the patient. Yes * Community resources currently utilized Home Health * Please name any agencies selected above. [facility] * Additional services required to return to the preadmission environment? Yes * Can the patient safely return to the preadmission environment? No * Has this patient been hospitalized within the prior 30 days at any hospital? Yes External Providers External Provider: [facility] Next Contact Date: Service Request Date: Service Type: Resolution: Reviewer: Comments: Last DP export: 09/17/18 2:03 p Patient Name: CINDY ROMERO Page [id number] at 1606 All edits/amendments must be made on the electronic document DICTATION DATE: 09/19/181605 PRODUCTION QUALITY MANAGER: NINI 09/19/18 160 RPT#: [id number] DC DATE: STATUS: ADM IN [facility] [address] [place] [address] END OF REPORT
--- NOTE | 2018-09-19 16:16 | MORECARE ---
CASE MANAGEMENT DISCHARGE SUMMARY PATIENT: CINDY ROMERO UNIT: [id number] ADM DATE: 09/13/18 AGE: 88 : 29 SEX: F ROOM/BED: D.2223 AUTHOR: CANDICE BARROS PHYSICIAN: REFERRING PHYSICIAN: GIANNA AZEVEDO MD DATE OF SERVICE: 09/19/18 Discharge Plan Patient Name: CINDY ROMERO Facility: [facility]:[place] : 1930 Planned Disposition: Assisted Living Anticipated Discharge Date: Discharge Date: Expected LOS: Initial Reviewer: [email or web address] Initial Review Date: 09/17/2018 Generated: 09/19/18 5:16 pm Comments DCP- Discharge Planning Updated by [email or web address]: Claire Daviskrista on 09/19/18 3:[address] Patient's daughter called and would like me to speak with her mother about a skilled facility. Patient would like a private room and chooses [facility]. States her step mother was at [facility] and does not want to go to [facility]. I spoke with her daughter, Bruna, and she agrees to [facility]. I spoke with Lola there and clinical faxed. CM will continue to follow and assist with discharge planning/needs. DCP- Discharge Planning Updated by [id number]: Claire Daviskrista on 09/17/18 2:[address] Patient Name: CINDY ROMERO Admission Status: ER Accout number: [id number] Admission Date: 09-13-2018 : 1930 Admission Diagnosis:SHORTNESS OF BREATH Attending: GIANNA AZEVEDO Current LOS: 4 Anticipated DC Date: Planned Disposition: Assisted Living Primary Insurance: MEDICARE A & B Discharge Planning Comments: CM met with patient to discuss discharge planning, she is alone in the room. She lives with her adult grandson in a one story home. States her daughter lives close by. States she is unsure of discharge plan, she has been discussing with her daughter. States she would like to go home with home health if able. I discussed the availability of SNF and DME. States she does not need any more DME. States she would like me to talk with Bruna about SNF. I called Bruna and she states they are looking at [facility]. States her is going to visit with her PCP tomorrow and look at options. I discussed possible SNF if she needed to have rehab prior to going to the assisted living and provided her my number to call me with questions. CM will continue to follow and assist with discharge planning/needs. Fuel Tank Sealer And Tester: Claire Mao DCPIA - Discharge Planning Initial Assessment Updated by [id number]: Claire Mao on 09/17/18 2:57 pm * Is the patient Alert and Oriented? Yes * How many steps to enter\exit or inside your home? 1/0 * PCP Dr. Azevedo * Pharmacy [facility] ([facility]) in [place] * Preadmission Environment Home with Family * ADLs Partial Dependent * Partial ADLs (Assistance needed) Ambulation * Equipment Cane Other Shower Chair * Other Equipment Walk in shower with shower chair and hand held shower head * List name and contact numbers for known caregivers / representatives who currently or will assist patient after discharge: Bruna Reyes [facility] - [phone] * Verbal permission to speak to the caregivers and representatives has been obtained from the patient. Yes * Community resources currently utilized Home Health * Please name any agencies selected above. [facility] * Additional services required to return to the preadmission environment? Yes * Can the patient safely return to the preadmission environment? No * Has this patient been hospitalized within the prior 30 days at any hospital? Yes Last DP export: 09/19/18 3:06 p Patient Name: CINDY ROMERO Page 75646 at 1616 All edits/amendments must be made on the electronic document DICTATION DATE: 09/19/181614 BELL PERSON: NINI 09/19/18 161 RPT#: [id number] DC DATE: STATUS: ADM IN [facility] [address] [place] [address] END OF REPORT
[2018-09-19 16:19] VITALS: BP 143/56
[2018-09-19 20:00] VITALS: BP 135/49
--- NOTE | 2018-09-19 21:17 | NUR ---
OT NOTE: PT COMPLETED EOB SITTING BALANCE WITH SBA/SUPV. PT COMPLETED SIT TO STAND WITH CGA/SBA. PT COMPLETED BUE AROM AXS. THANK YOU, SIRISHA HARRIS
[2018-09-20] VITALS: BP 117/55
[2018-09-20 04:00] VITALS: BP 126/62
[2018-09-20 06:05] LABS: BASOPHILS 0.4 % (0-2); EOSINOPHILS 7.6 % (0-7); HEMATOCRIT 27.9 % (36.0-48.0); HEMOGLOBIN 8.9 g/dL (12-16); IMMATURE GRANULOCYTES 0.4 % (0-5); LYMPHOCYTES 17.2 % (15-50); MCH 32.1 pg (26.0-34.0); MCHC 31.9 g/dL (31.0-37.0); MCV 100.7 fL (80.0-100.0); MEAN PLATELET VOLUME 10.1 fL (7.4-10.4); MONOCYTES 15.9 % (2-11); NEUTROPHILS 58.5 % (40-80); PLATELET COUNT 235 10x3/uL (130-400); RBC 2.77 10x6/uL (4.00-5.40); RDW 15.4 % (11.5-14.5); WBC 4.5 10x3/uL (4.8-10.8)
[2018-09-20 06:27] LABS: ANION GAP 13.8 mmol/L (8-16); CREATININE - SERUM 1.3 mg/dL (0.6-1.3); MAGNESIUM - SERUM 1.4 mg/dL (1.8-2.4); PHOSPHOROUS 3.5 mg/dL (2.5-4.9); POTASSIUM - SERUM 3.8 mmol/L (3.5-5.1); VANCOMYCIN - RANDOM 20.1 ug/mL (10.0-20.0)
--- NOTE | 2018-09-20 08:10 | NUR ---
PATIENT RESTING IN BED, DENIES PAIN, ZOFRAN GIVEN IV FOR NAUSEA. REPIRATIONS REGULAR AND NONLABORED. PATIENT ANTICIPATES DISCHARGE TODAY. PATIENT HAS 02 OFF AT THIS TIME WITH SAT 91% RA, NGUYEN DOES NOT WEAR O2 AT HOME. CL IN REACH
[2018-09-20 08:25] VITALS: BP 143/66
--- NOTE | 2018-09-20 11:23 | MORECARE ---
CASE MANAGEMENT DISCHARGE SUMMARY PATIENT: CINDY ROMERO UNIT: [id number] ADM DATE: 09/13/18 AGE: 88 : 29 SEX: F ROOM/BED: D.2223 AUTHOR: FIORELLADOC PHYSICIAN: REFERRING PHYSICIAN: GIANNA AZEVEDO MD DATE OF SERVICE: 09/20/18 Discharge Plan Patient Name: CINDY ROMERO Facility: [facility]:[place] : 1930 Planned Disposition: Assisted Living Anticipated Discharge Date: Discharge Date: Expected LOS: Initial Reviewer: [email or web address] Initial Review Date: 09/17/2018 Generated: 09/20/18 12:22 pm Comments DCP- Discharge Planning Updated by [id number]: Claire Mao on 09/20/18 10:[address] Received a call from Lola with [facility]. Lola states her daughter is going to sign papers on her lunch break and they can pick her up at 1400. She will be discharging to a skilled bed. I called Dr. Azevedo and he states he will write discharge orders at lunch. Patient informed that she will be [facility] and she agrees with discharge. CM will continue to follow and assist with discharge planning/needs. DCP- Discharge Planning Updated by [id number]: Claire Mao on 09/19/18 3:[address] Patient's daughter called and would like me to speak with her mother about a skilled facility. Patient would like a private room and [facility]. States her step mother was at [facility] and does not want to go to [facility]. I spoke with her daughter, Bruna, and she agrees to [facility]. I spoke with Lola there and clinical faxed. CM will continue to follow and assist with discharge planning/needs. DCP- Discharge Planning Updated by [email or web address]: Claire Mao on 09/17/18 2:[address] Patient Name: CINDY ROMERO Admission Status: ER Accout number: [id number] Admission Date: 09-13-2018 : 1930 Admission Diagnosis:SHORTNESS OF BREATH Attending: GIANNA AZEVEDO Current LOS: 4 Anticipated DC Date: Planned Disposition: Assisted Living Primary Insurance: MEDICARE A & B Discharge Planning Comments: CM met with patient to discuss discharge planning, she is alone in the room. She lives with her adult grandson in a one story home. States her daughter lives close by. States she is unsure of discharge plan, she has been discussing with her daughter. States she would like to go home with home health if able. I discussed the availability of SNF and DME. States she does not need any more DME. States she would like me to talk with Bruna about SNF. I called Bruna and she states they are looking at [facility]. States her is going to visit with her PCP tomorrow and look at options. I discussed possible SNF if she needed to have rehab prior to going to the assisted living and provided her my number to call me with questions. CM will continue to follow and assist with discharge planning/needs. Ordnance Handler: Claire Mao DCPIA - Discharge Planning Initial Assessment Updated by [id number]: Claire Mao on 09/17/18 2:57 pm * Is the patient Alert and Oriented? Yes * How many steps to enter\exit or inside your home? 1/0 * PCP Dr. Azevedo * Pharmacy [facility] ([facility]) in [place] * Preadmission Environment Home with Family * ADLs Partial Dependent * Partial ADLs (Assistance needed) Ambulation * Equipment Cane Other Shower Chair * Other Equipment Walk in shower with shower chair and hand held shower head * List name and contact numbers for known caregivers / representatives who currently or will assist patient after discharge: Bruna Reyes [facility] - [phone] * Verbal permission to speak to the caregivers and representatives has been obtained from the patient. Yes * Community resources currently utilized Home Health * Please name any agencies selected above. [facility] * Additional services required to return to the preadmission environment? Yes * Can the patient safely return to the preadmission environment? No * Has this patient been hospitalized within the prior 30 days at any hospital? Yes Coverage Notice Reviewer: [id number] - Claire Mao Notice Issued Date-Time: 09/20/2018 11:09 Notice Type: IM Discharge Notice Notice Delivered To: Patient Relationship to Patient: Self Audit Analyst Name: Delivery Method: HAND - Hand Delivered Concha Days: Prior Verbal Notification: Recipient Understood Notice: Yes Recipient Signature: Yes Med Rec Note Co-signed by Attending: Coverage Notice Comment: IMM explained, signed, given, copy placed in MR Last DP export: 09/19/18 3:16 p Patient Name: CINDY ROMERO Page 07810 at 1123 All edits/amendments must be made on the electronic document DICTATION DATE: 09/20/181121 STAFF REPORTER: NINI 09/20/181121 RPT#: [id number] DC DATE: STATUS: ADM IN [facility] [address] [place] [address] END OF REPORT
[2018-09-20 12:05] VITALS: BP 148/61
[2018-09-20] MEDS ORDERED: VIBRAMYCIN 100100 MG PO (13:07)
[2018-09-20] MEDS ORDERED: XANAX0.25 MG PO (13:07)
--- NOTE | 2018-09-20 14:10 | NUR ---
IV REMOVED FROM LEFT FA WITH CATH INTACT, NO REDNESS OR EDEMA AT SITE. DISCHARGE INSTRUCTIONS GIVEN TO PATIENT WITH UNDERSTANDING ABRAHAN, REPORT CALLED TO Joanna AT [facility]. PATIENT TAKEN BY [facility] YESSI TO THEIR FACILITY
--- NOTE | 2018-09-23 16:55 | MORECARE ---
CASE MANAGEMENT DISCHARGE SUMMARY PATIENT: CINDY ROMERO UNIT: [id number] ADM DATE: 09/13/18 AGE: 88 : 29 SEX: F ROOM/BED: D.2223 AUTHOR: CANDICE BARROS PHYSICIAN: REFERRING PHYSICIAN: GIANNA AZEVEDO MD DATE OF SERVICE: 09/23/18 Discharge Plan Patient Name: CINDY ROMERO Facility: [facility]:[place] : 1930 Planned Disposition: Assisted Living Anticipated Discharge Date: Discharge Date: 09/20/2018 Expected LOS: 0 Initial Reviewer: [email or web address] Initial Review Date: 09/17/2018 Generated: 09/23/18 5:55 pm Comments DCP- Discharge Planning Updated by [id number]: Claire Mao on 09/20/18 10:[address] Received a call from Lola with [facility]. Lola states her daughter is going to sign papers on her lunch break and they can pick her up at 1400. She will be discharging to a skilled bed. I called Dr. Azevedo and he states he will write discharge orders at lunch. Patient informed that she will be going at [facility] and she agrees with discharge. CM will continue to follow and assist with discharge planning/needs. DCP- Discharge Planning Updated by [id number]: Claire Mao on 09/19/18 3:[address] Patient's daughter called and would like me to speak with her mother about a skilled facility. Patient would like a private room and chooses [facility]. States her step mother was at [facility] and does not want to go to [facility]. I spoke with her daughter, Bruna, and she agrees to [facility]. I spoke with Lola there and clinical faxed. CM will continue to follow and assist with discharge planning/needs. DCP- Discharge Planning Updated by [id number]: Claire Mao on 09/17/18 2:[address] Patient Name: CINDY ROMERO Admission Status: ER Accout number: [id number] Admission Date: 09-13-2018 : 1930 Admission Diagnosis:SHORTNESS OF BREATH Attending: GIANNA AZEVEDO Current LOS: 4 Anticipated DC Date: Planned Disposition: Assisted Living Primary Insurance: MEDICARE A & B Discharge Planning Comments: CM met with patient to discuss discharge planning, she is alone in the room. She lives with her adult grandson in a one story home. States her daughter lives close by. States she is unsure of discharge plan, she has been discussing with her daughter. States she would like to go home with home health if able. I discussed the availability of SNF and DME. States she does not need any more DME. States she would like me to talk with Bruna about SNF. I called Bruna and she states they are looking at [facility]. States her is going to visit with her PCP tomorrow and look at options. I discussed possible SNF if she needed to have rehab prior to going to the assisted living and provided her my number to call me with questions. CM will continue to follow and assist with discharge planning/needs. Machine Plate Stacker: Claire Mao DCPIA - Discharge Planning Initial Assessment Updated by [id number]: Claire Mao on 09/17/18 2:57 pm * Is the patient Alert and Oriented? Yes * How many steps to enter\exit or inside your home? 1/0 * PCP Dr. Azevedo * Pharmacy [facility] ([facility] in [place] * Preadmission Environment Home with Family * ADLs Partial Dependent * Partial ADLs (Assistance needed) Ambulation * Equipment Cane Other Shower Chair * Other Equipment Walk in shower with shower chair and hand held shower head * List name and contact numbers for known caregivers / representatives who currently or will assist patient after discharge: Bruna Reyes - [facility] - [phone] * Verbal permission to speak to the caregivers and representatives has been obtained from the patient. Yes * Community resources currently utilized Home Health * Please name any agencies selected above. [facility] * Additional services required to return to the preadmission environment? Yes * Can the patient safely return to the preadmission environment? No * Has this patient been hospitalized within the prior 30 days at any hospital? Yes Coverage Notice Reviewer: [id number] - Claire Mao Notice Issued Date-Time: 09/20/2018 11:09 Notice Type: IM Discharge Notice Notice Delivered To: Patient Relationship to Patient: Self Lav Crewman Name: Delivery Method: HAND - Hand Delivered Concha Days: Prior Verbal Notification: Recipient Understood Notice: Yes Recipient Signature: Yes Med Rec Note Co-signed by Attending: Coverage Notice Comment: IMM explained, signed, given, copy placed in MR Last DP export: 09/20/18 10:23 am Patient Name: CINDY ROMERO Page 53230 at 1655 All edits/amendments must be made on the electronic document DICTATION DATE: 09/23/181653 LEAD SOFTWARE TESTER: NINI 09/23/181653 RPT#: [id number] DC DATE:09/20/18 STATUS: DIS IN [facility] [address] [place] [address] END OF REPORT
== END 2018-09-20 14:32 | DRG 291 ==
LOC: D.ER 20:41 → D.MS 23:08
PROVIDERS: Family Medicine; Internal Medicine Pulmonary Disease; ADMIT Family Medicine
DX: I11.0 Hypertensive heart disease with heart failure (principal); J18.9 Pneumonia, unspecified organism; J96.01 Acute respiratory failure with hypoxia; I50.23 Acute on chronic systolic (congestive) heart failure; I50.9 Heart failure, unspecified; I25.10 Atherosclerotic heart disease of native coronary artery without angina pectoris; E11.9 Type 2 diabetes mellitus without complications; K21.9 Gastro-esophageal reflux disease without esophagitis; F41.9 Anxiety disorder, unspecified

== ENCOUNTER → 2018-10-14 12:17 | Outpatient (CLI) | payer MEDICARE, BC ==
[2018-09-17 13:24] VITALS: BMI 20.1
== END | disposition home or self-care (01) ==
LOC: D.RAD 12:17
DX: R13.10 Dysphagia, unspecified (principal)